=== PATIENT | male | born 1945 | race African-American/Black ===

== ENCOUNTER → 2016-10-06 | Outpatient (REF) | payer MEDICARE, BC, OTHER ==
[~2016-10-06] MED LIST: 3 BP MEDS; ALDA25TA2 PO; ALEV220C2 PO; ALLO100T PO; FLOM5CAP PO; METO50TA2 PO; PERCOCET PO; SENN-22 PO; Thiamine Hcl PO
[2016-10-06 16:34] LABS: ALBUMIN 3.5 GM/DL (3.2-5.2); ALBUMIN/GLOBULIN RATIO 1.06 (1.00-1.93); ALKALINE PHOSPHATASE 71 U/L (45-117); ALT/SGPT 27 U/L (12-78); ANION GAP 6 MEQ/L (8-16); AST/SGOT 16 U/L (15-37); BILIRUBIN,TOTAL 0.4 MG/DL (0.2-1.0); BLOOD UREA NITROGEN 16 MG/DL (7-18); CARBON DIOXIDE LEVEL 29 MEQ/L (21-32); CHLORIDE LEVEL 107 MEQ/L (98-107); CHOLESTEROL LEVEL 157 MG/DL (<200); CREATININE FOR GFR 1.08 MG/DL (0.70-1.30); GLOMERULAR FILTRATION RATE > 60.0 (>42); GLUCOSE, FASTING 91 MG/DL (83-110); POTASSIUM SERUM 4.2 MEQ/L (3.5-5.1); SODIUM LEVEL 142 MEQ/L (136-145); TOTAL PROTEIN 6.8 GM/DL (6.4-8.2); TRIGLYCERIDES LEVEL 103 MG/DL (<150)
== END ==
LOC: M LABDRAW1 15:43
PROVIDERS: ATTEND Family Medicine
DX: E78.5 Hyperlipidemia, unspecified (principal); N42.82 Prostatosis syndrome

== ENCOUNTER → 2016-10-15 | Outpatient (REF) | payer MEDICARE, BC, OTHER | LOC: M SMT 17:10 | PROVIDERS: ATTEND Nurse Practitioner Family | DX: R35.0 Frequency of micturition (principal) | CPT/HCPCS: 51798; 87086; G0463 ==

== ENCOUNTER → 2016-11-17 | Outpatient (CLI) | payer MEDICARE, BC, OTHER ==
[~2016-11-17] MED LIST changes: +ACET1TAB17 PO; +ASPI1TAB PO; +ATOR1TAB19 PO; +BACITAB PO; +BACT800T5 PO; +CIPR500T3 PO; +COLA100C5 PO; +COLC1CAP PO; +DIOV160T6 PO; +DITR1TAB PO; +DRIS50002 PO; +HYDR12CA PO; +METO25TA4 PO; -METO50TA2 PO; +METO50TA7 PO; +OXYC1TAB23 PO; +VIAG100T PO; +VITA100L PO; +XARE20TA PO
--- NOTE | 2016-11-17 10:56 | REP ---
TRANSRECTAL PROSTATE ULTRASOUND WITH ULTRASOUND GUIDANCE FOR PROSTATE BIOPSY: Real-time sonographic evaluation of the prostate performed utilizing transrectal probe. The size of the gland is 6.5 x 5.3 x 5.3 cm for a total volume of 96.3 mL. Echotexture is diffusely heterogeneous with echogenic calcifications noted. Seminal vesicles appear symmetrical. Ultrasound guidance was provided for Dr. Liao who performed ultrasound-guided biopsy of the prostate. Signed by Armen Ghosh MD 11/17/2016 12:54 P
== END | disposition home or self-care (01) ==
LOC: M SMT PRO 08:05
PROVIDERS: ATTEND Urology
DX: C61 Malignant neoplasm of prostate (principal)
CPT/HCPCS: 55700; 76872; 76942; G0416

== ENCOUNTER → 2016-12-16 | Outpatient (REF) | payer MEDICARE, BC | LOC: M SMT 09:00 | PROVIDERS: ATTEND Urology | DX: C61 Malignant neoplasm of prostate (principal) | CPT/HCPCS: 88300; G0463 ==

== ENCOUNTER → 2017-02-03 | Outpatient (CLI) | payer MEDICARE, BC, OTHER ==
--- NOTE | 2017-02-03 15:08 | ECGEPIP ---
Stationary ECG Study [facility] Test Date: 2017-02-03 Pat Name: ILANA HENDRICKS Department: Room: - Gender: M Welcome Wagon Host/Hostess: : 1945 Requested By: FINN Herring Order Number: [id number] Reading MD: Clarisse Londono Measurements Intervals [place] Rate: 70 P: 55 [place]: 167 QRS: -27 QRSD: 89 T: 42 QT: 364 QTc: 393 Interpretive Statements SINUS RHYTHM WITH SINUS ARRHYTHMIA LEFT AXIS DEVIATION RATE SLOWER THAN PREVIOUS 11/28/14 NONSPECIFIC STTW ABN Electronically Signed On 02-03-2017 15:07:57 EDT by Clarisse Londono
[2017-02-03 15:35] LABS: MEAN CORPUSCULAR HEMOGLOBIN 28.5 pg (27.0-33.0); MEAN CORPUSCULAR HGB CONC 32.7 g/dl (32.0-36.5); MEAN CORPUSCULAR VOLUME 87.3 fl (80.0-96.0); RED CELL DISTRIBUTION WIDTH 14.8 % (11.5-14.5); WHITE BLOOD COUNT 6.7 K/mm3 (4.0-10.0)
[2017-02-03 15:42] LABS: INR 1.29
[2017-02-03 15:58] LABS: ALBUMIN 3.9 GM/DL (3.2-5.2); ALBUMIN/GLOBULIN RATIO 1.08 (1.00-1.93); BILIRUBIN,TOTAL 0.5 MG/DL (0.2-1.0); CALCIUM LEVEL 9.3 MG/DL (8.8-10.2); CREATININE FOR GFR 1.5 MG/DL (0.70-1.30); GLOMERULAR FILTRATION RATE 59.7 (>42); POTASSIUM SERUM 4.7 MEQ/L (3.5-5.1); TOTAL PROTEIN 7.5 GM/DL (6.4-8.2)
--- NOTE | 2017-02-03 18:29 | REP ---
Chest x-ray: Two views: History: Encounter for preprocedural exam. Comparison chest x-ray 12/10/2014. Findings: The lungs are well inflated and free of infiltrate. Pleural angles are sharp. Heart size is normal. Pulmonary vasculature is not increased. There is a bone density representing hypertrophy at the site of a healed fracture of the left anterior rib cage. There are degenerative changes in the thoracic spine. Impression: No active disease. Signed by Jay Aranda MD 02/04/2017 08:52 A
== END ==
LOC: M LAB 13:55
PROVIDERS: ATTEND Urology
DX: Z01.818 Encounter for other preprocedural examination (principal); C61 Malignant neoplasm of prostate; N39.0 Urinary tract infection, site not specified; R79.1 Abnormal coagulation profile

== ENCOUNTER 2017-02-24 07:30 | Inpatient (IN) | payer MEDICARE, BC, OTHER ==
[~2017-02-24] VITALS: Ht 182.9 cm; Wt 120.7 kg
[~2017-02-24 07:30] MED LIST changes: -ACET1TAB17 PO; -CIPR500T3 PO; -OXYC1TAB23 PO
[2017-03-09] MEDS ORDERED: LR 1,000 ML IV ONE (07:30)
[2017-03-09] MEDS: HEPARIN SOD (PORCINE) 5000 UNITS/ML VIAL SQ ONE ×2 (07:53→08:53)
[2017-03-09] MEDS: NS 1,000 ML IV SCH ×2 (08:02→16:02)
[2017-03-09] MEDS ORDERED: PROPOFOL 200 MG/20 ML VIAL As Ordered ONE (08:06)
[2017-03-09] MEDS ORDERED: LIDOCAINE 2% INJ 100 MG/5 ML SDV (FOR ANES.) As Ordered ONE (08:06)
[2017-03-09] MEDS ORDERED: ROCURONIUM BROMIDE 50 MG/5 ML VIAL/SYRINGE As Ordered ONE ×2 (08:06→09:27)
[2017-03-09] MEDS ORDERED: MIDAZOLAM INJ 2 MG/2 ML VIAL (J2250) As Ordered ONE (08:07)
[2017-03-09] MEDS ORDERED: fentaNYL 100 MCG/2 ML INJECTION (J3010) As Ordered ONE ×2 (08:07→16:14)
[2017-03-09] MEDS ORDERED: BUPIVACAINE HCL 0.25% 30 ML VIAL As Ordered ONE (08:13)
[2017-03-09] MEDS ORDERED: LIDOCAINE 1% SDV INJ 30 ML VIAL As Ordered ONE (08:13)
[2017-03-09] MEDS ORDERED: METHYLENE BLUE 0.5% (5MG/ML) 10 ML AMP (PROVAYBLUE)(Q9968 PER 1MG) As Ordered ONE (08:13)
[2017-03-09] MEDS ORDERED: MORPHINE 2 MG/ML 1ML SYRINGE IV PRN (08:15)
[2017-03-09] MEDS ORDERED: ACETAMINOPHEN TAB 650MG DOSE (2X325MG) PO PRN (08:15)
[2017-03-09] MEDS ORDERED: ONDANSETRON 4MG/2ML VIAL (J2405) IV PRN ×2 (08:15→17:30)
[2017-03-09] MEDS ORDERED: PERCOCET 5MG/325MG TAB PO PRN ×2 (08:15→17:30)
[2017-03-09] MEDS ORDERED: HEPARIN SOD (PORCINE) 5000 UNITS/ML VIAL As Ordered ONE (08:43)
[2017-03-09] MEDS: VALSARTAN 80 MG TAB (DIOVAN) PO SCH (09:00)
[2017-03-09] MEDS: DOCUSATE SODIUM 100 MG CAP PO SCH ×2 (09:00→20:03)
[2017-03-09] MEDS ORDERED: METOPROLOL 5 MG/5 ML VIAL As Ordered ONE ×2 (09:17→18:13)
[2017-03-09] MEDS ORDERED: HYDROmorphone HCL 2 MG/ML 1ML VIAL (J1170) As Ordered ONE (09:24)
[2017-03-09] MEDS ORDERED: ONDANSETRON 4MG/2ML VIAL (J2405) As Ordered ONE (09:39)
[2017-03-09] MEDS ORDERED: NEOSTIGMINE 1MG/ML 5 ML SYRINGE (J2710) As Ordered ONE (09:39)
[2017-03-09] MEDS ORDERED: GLYCOPYRROLATE INJ 0.2 MG/ML 2 ML VIAL As Ordered ONE (09:39)
[2017-03-09] MEDS ORDERED: VECURONIUM BROMIDE 10 MG VIAL As Ordered ONE (10:47)
[2017-03-09] MEDS: HEPARIN SOD (PORCINE) 5000 UNITS/ML VIAL SC SCH ×2 (14:00→22:01)
--- NOTE | 2017-03-09 16:53 | ROOPDOC ---
[facility] Report Of Operation Report of Operation DATE OF PROCEDURE: 03/09/17 PREPROCEDURE DIAGNOSIS: Prostate cancer. POSTPROCEDURE DIAGNOSIS: Prostate cancer. PROCEDURE: Robotic-assisted laparoscopic radical prostatectomy. SURGEON: Finn Diaz MD LOCKER ROOM ATTENDANT: None ANESTHESIA: General. OPERATIVE INDICATIONS: This is a 71-year-old male who was diagnosed with clinical stage T1c [place] 3+3 prostate cancer. After a discussion of the different options for treatment, he elected to undergo the above listed procedure. DESCRIPTION OF PROCEDURE: The patient was brought to the operating room where general anesthesia was induced. Prophylactic antibiotics were infused. He was then placed in the dorsal lithotomy position, and prepped and draped in the usual sterile fashion. Next, a Cutler catheter was inserted into the bladder, and the balloon was filled with 10 mL of sterile water. We then made a midline incision above the umbilicus for a 12 mm port. A Veress needle was utilized to achieve pneumoperitoneum. Next, a 12 mm port was inserted through the incision and subsequently the camera was inserted. There were no injuries from the Veress needle or initial trocar placement. The remaining ports were placed in the usual fashion under direct vision in a W configuration. There were three 8 mm robotic ports, as well as another 12 mm preschool assistant port. Once all the ports were placed, the robot was docked. After the robot was docked, we then proceeded to release any adhesions to the sigmoid colon and the abdominal wall. Once that was done, the bladder was dropped and the fat overlying the prostate was cleared using electrocautery. The superficial dorsal vein was controlled with electrocautery. The endopelvic fascia was opened on both sides and the dorsal venous complex was cleared. Next, a #0 Vicryl [id number] stitch was placed around the dorsal venous complex. Once that was done, the bladder was opened. We then began dissecting the bladder neck away from the prostate. I continued to dissect the bladder away from the prostate and then the prostate was lifted up. Both vasa differentia were identified in the midline. They were both carefully dissected and then ligated with Weck clips and then transected. Both seminal vesicles were then also dissected until the entire seminal vesicle on each side was lifted up. At this point, bilateral prostatic pedicles were carefully ligated using a Harmonic scalpel. Of note, I did not perform a nerve sparing procedure as the patient had poor erectile function prior to this surgery. Bilateral pedicles were carried towards the apex. After taking care of the pedicles and mobilizing the rectum off the prostate below, the prostate was only connected by the urethra. At this point, the dorsal vein was transected with electrocautery. The urethra was then opened and the catheter was withdrawn and the posterior urethra was transected, thus freeing the prostate. At this point , we checked for hemostasis and it did appear very good. Once hemostasis was confirmed, I then moved on to the vesicourethral anastomosis. This was performed with a Quill stitch in a running fashion. Once this was done, the final #20-Israeli Cutler catheter was placed. Once the final Cutler was placed, the balloon was filled with 15 mL of sterile water. Upon completion of the vesicourethral anastomosis, it was tested by filling the bladder with 120 mL of sterile water. There anastomosis appeared to be watertight. At this point, the prostate and seminal vesicles were placed in an Endo Catch bag for future retrieval. The robot was then undocked. A Juliana fascial closure device was utilized to place a #0 Vicryl suture through the fascia of the 12 mm preschool assistant port. At this point, a Slim- Rebolledo (ROBERTA) drain was brought in through the left robotic port skin site and the drain was positioned anterior to the bladder. The drain was secured to the skin with #3-0 Ethilon suture. Next, all the remaining ports were removed and there did not appear to be any bleeding from any of the port sites. The prostate was then extracted from the 12 mm camera port site after the skin and fascia were extended. The fascia in this area was then closed with a running #0 Vicryl stitch. The previously placed #0 Vicryl free tie through the preschool assistant port site was then tied down and all incisions were irrigated. Lastly, all of the incisions were closed with running subcuticular #4-0 Monocryl sutures. Local anesthesia was applied. Dermabond was then applied to the incisions. This marked the conclusion of the procedure. The patient was then taken out of the dorsal lithotomy position, awakened from anesthesia and transported to the recovery room in stable condition. ESTIMATED BLOOD LOSS: 300 mL. COMPLICATIONS: None. SPECIMENS: Prostate. PLAN: The patient will be admitted to the hospital postoperatively, and he will likely be discharged home within the next 1-2 days. His catheter will be kept in place for at least 7 days. FINN DIAZ MD Mar 09, 2017 16:52
[2017-03-09 17:01] LABS: MEAN CORPUSCULAR HEMOGLOBIN 27.3 pg (27.0-33.0); MEAN CORPUSCULAR HGB CONC 31.7 g/dl (32.0-36.5); MEAN CORPUSCULAR VOLUME 86.1 fl (80.0-96.0); RED CELL DISTRIBUTION WIDTH 15.8 % (11.5-14.5); WHITE BLOOD COUNT 12.8 10^3/uL (4.0-10.0)
[2017-03-09] MEDS ORDERED: HYDROmorphone HCL 1 MG/ML SYRINGE (J1170) As Ordered ONE (17:10)
[2017-03-09] MEDS: HYDROmorphone HCL 1 MG/ML SYRINGE (J1170) IV PRN ×5 (17:15→18:02)
[2017-03-09 17:17] LABS: ANION GAP 6 MEQ/L (8-16); BLOOD UREA NITROGEN 13 MG/DL (7-18); CALCIUM LEVEL 8.8 MG/DL (8.8-10.2); CARBON DIOXIDE LEVEL 25 MEQ/L (21-32); CHLORIDE LEVEL 107 MEQ/L (98-107); CREATININE FOR GFR 1.38 MG/DL (0.70-1.30); GLOMERULAR FILTRATION RATE > 60.0 (>42); GLUCOSE, FASTING 133 MG/DL (83-110); SODIUM LEVEL 138 MEQ/L (136-145)
[2017-03-09] MEDS ORDERED: LR 1,000 ML IV SCH (17:30)
[2017-03-09] MEDS ORDERED: fentaNYL 100 MCG/2 ML INJECTION (J3010) IV PRN (17:30)
[2017-03-09] MEDS: METOPROLOL 5 MG/5 ML VIAL IV SCH ×5 (18:15→18:43)
[2017-03-09 19:00] VITALS: BP 163/89
[2017-03-09 19:45] VITALS: BP 147/80
[2017-03-09] MEDS: SPIRONOLACTONE 25 MG TAB PO SCH (20:04)
[2017-03-09] MEDS: ATORVASTATIN 10 MG TAB PO SCH (20:04)
[2017-03-09] MEDS: METOPROLOL TART 25 MG TABLET PO SCH (20:04)
[2017-03-09] MEDS: ceFAZolin SOD 1 GM in D5W MINI-BAG PLUS 50 ML IV SCH (20:19)
[2017-03-09 20:30] VITALS: BP 150/85
[2017-03-09 21:00] VITALS: BP 158/80
[2017-03-09 22:00] VITALS: BP 137/77
[2017-03-10] MEDS: NS 1,000 ML IV SCH (00:02)
[2017-03-10] MEDS: ceFAZolin SOD 1 GM in D5W MINI-BAG PLUS 50 ML IV SCH (01:28)
[2017-03-10 02:00] VITALS: BP 144/82
[2017-03-10] MEDS: HEPARIN SOD (PORCINE) 5000 UNITS/ML VIAL SC SCH ×3 (05:37→22:02)
[2017-03-10] MEDS: PERCOCET 5MG/325MG TAB PO PRN ×3 (05:37→22:05)
[2017-03-10 06:00] VITALS: BP 134/73
[2017-03-10 06:22] LABS: MEAN CORPUSCULAR HEMOGLOBIN 27.6 pg (27.0-33.0); MEAN CORPUSCULAR HGB CONC 32.1 g/dl (32.0-36.5); RED CELL DISTRIBUTION WIDTH 15.8 % (11.5-14.5); WHITE BLOOD COUNT 11.7 10^3/uL (4.0-10.0)
[2017-03-10 06:43] LABS: ANION GAP 4 MEQ/L (8-16); BLOOD UREA NITROGEN 13 MG/DL (7-18); CALCIUM LEVEL 8.3 MG/DL (8.8-10.2); CARBON DIOXIDE LEVEL 31 MEQ/L (21-32); CHLORIDE LEVEL 104 MEQ/L (98-107); CREATININE FOR GFR 1.34 MG/DL (0.70-1.30); GLOMERULAR FILTRATION RATE > 60.0 (>42); GLUCOSE, FASTING 106 MG/DL (83-110); POTASSIUM SERUM 4.4 MEQ/L (3.5-5.1); SODIUM LEVEL 139 MEQ/L (136-145)
--- NOTE | 2017-03-10 08:09 | IPNPDOC ---
Assessment/Plan Date Seen The patient was seen on 03/10/17. Patient Summary This is 71 y/o M POD1 s/p RALP. He is doing well this morning. Labs are stable w/i normal limits. UOP has been very good. The ROBERTA drain output has been small. Plan/VTE VTE Prophylaxis Ordered?: Yes VTE Exclusion Mechanical Proph: N/A:VTE Prophy Ordered VTE Exclusion Pharmacological: N/A:VTE Prophy Ordered Plan/Urinary Catheter Urinary Catheter: Other Catheter: (catheter will need to stay in place for 7- 10 days to aid in healing of vesicourethral anastomosis) Plan - d/c IVF - percocet prn pain - ambulate - SCDs/SQH - incentive spirometry - continue home meds - strict I/Os - plan likely discharge home later today w/ catheter in place - will remove the ROBERTA drain prior to discharge Subjective Review oF Systems Chief Complaint The patient is a 71-year-old male admitted with a reason for visit of Prostate Cancer. Events since Last Encounter No acute events o/n. Pain is well-controlled. Denies n/v. Tolerating clear liquid diet. No f/c/ns. Objective Physical Examination General Exam: Alert, Cooperative, No Acute Distress ABDOMEN EXAM: Soft, Tenderness (mild tenderness), Other (incisions clean/dry/ intact; ROBERTA w/ serosanguinous output) Skin Exam: Nl turgor and temperature Psych Exam: Mental status NL, Mood NL Other physical findings catheter draining clear urine Vital Signs/I&O Vital Signs Date Time Temp Pulse Resp B/P (MAP) Pulse Ox O2 Delivery O2 Flow Rate FiO2 03/10/17 06:07 16 03/10/17 06:00 98.7 67 134/73 (93) 97 Room Air 03/10/17 02:00 3.0 I&O- Last 24 Hours up to 6 AM 03/11/17 06:00 Output Total 480 ml Balance -480 ml Laboratory Data Labs 24H Laboratory Tests 2 03/09/17 16:48: Anion Gap 6L, Glomerular Filtration Rate > 60.0, Blood Urea Nitrogen 13, Creatinine 1.38H, Sodium Level 138, Potassium Level 5.0, Chloride Level 107, Carbon Dioxide Level 25, Calcium Level 8.8 03/10/17 06:13: Anion Gap 4L, Glomerular Filtration Rate > 60.0, Blood Urea Nitrogen 13, Creatinine 1.34H, Sodium Level 139, Potassium Level 4.4, Chloride Level 104, Carbon Dioxide Level 31, Calcium Level 8.3L CBC/BMP Laboratory Tests 03/09/17 16:48 Red Blood Count 5.17, Mean Corpuscular Volume 86.1, Mean Corpuscular Hemoglobin 27.3, Mean Corpuscular Hemoglobin Concent 31.7 L, Red Cell Distribution Width 15.8 H, Calcium Level 8.8 03/10/17 06:13 Red Blood Count 4.49, Mean Corpuscular Volume 86.0, Mean Corpuscular Hemoglobin 27.6, Mean Corpuscular Hemoglobin Concent 32.1, Red Cell Distribution Width 15.8 H, Calcium Level 8.3 L FINN DIAZ MD Mar 10, 2017 08:09
[2017-03-10] MEDS: DOCUSATE SODIUM 100 MG CAP PO SCH ×2 (08:54→22:01)
[2017-03-10] MEDS: hydroCHLOROthiazide 12.5 MG CAPSULE PO SCH (08:54)
[2017-03-10] MEDS: VALSARTAN 80 MG TAB (DIOVAN) PO SCH (08:55)
[2017-03-10] MEDS: SPIRONOLACTONE 25 MG TAB PO SCH ×2 (08:55→17:53)
[2017-03-10] MEDS: ASPIRIN 81 MG ENTERIC TAB PO SCH (08:55)
[2017-03-10] MEDS: METOPROLOL TART 25 MG TABLET PO SCH ×2 (08:55→22:14)
[2017-03-10] MEDS: oxyBUTYnin *DITROPAN XL* 5 MG TABCR PO SCH (09:10)
[2017-03-10 10:00] VITALS: BP 97/54
[2017-03-10] MEDS ORDERED: OXYC1TAB23 PO (13:33)
[2017-03-10] MEDS ORDERED: ACET1TAB17 PO (13:33)
[2017-03-10] MEDS ORDERED: CIPR500T3 PO (13:33)
[2017-03-10 14:00] VITALS: BP 117/65
[2017-03-10 18:00] VITALS: BP 120/66
[2017-03-10 20:00] VITALS: BP 117/58
[2017-03-10] MEDS: ATORVASTATIN 10 MG TAB PO SCH (22:02)
[2017-03-11 02:00] VITALS: BP 125/62
[2017-03-11] MEDS: HEPARIN SOD (PORCINE) 5000 UNITS/ML VIAL SC SCH (05:34)
[2017-03-11 06:00] VITALS: BP 113/61
[2017-03-11] MEDS ORDERED: CIPROFLOXACIN 500 MG TAB PO SCH (06:00)
[2017-03-11 07:51] LABS: MEAN CORPUSCULAR HEMOGLOBIN 27.5 pg (27.0-33.0); MEAN CORPUSCULAR HGB CONC 31.9 g/dl (32.0-36.5); MEAN CORPUSCULAR VOLUME 86.1 fl (80.0-96.0); RED CELL DISTRIBUTION WIDTH 15.8 % (11.5-14.5); WHITE BLOOD COUNT 9.2 10^3/uL (4.0-10.0)
[2017-03-11 08:21] LABS: ANION GAP 5 MEQ/L (8-16); BLOOD UREA NITROGEN 21 MG/DL (7-18); CALCIUM LEVEL 8.5 MG/DL (8.8-10.2); CARBON DIOXIDE LEVEL 28 MEQ/L (21-32); CHLORIDE LEVEL 104 MEQ/L (98-107); CREATININE FOR GFR 1.45 MG/DL (0.70-1.30); GLOMERULAR FILTRATION RATE > 60.0 (>42); GLUCOSE, FASTING 89 MG/DL (83-110); POTASSIUM SERUM 4.6 MEQ/L (3.5-5.1); SODIUM LEVEL 137 MEQ/L (136-145)
--- NOTE | 2017-03-11 08:32 | IPNPDOC ---
Assessment/Plan Date Seen The patient was seen on 03/11/17. Patient Summary This is 71 y/o M POD2 s/p RALP. He is doing well this morning. Labs are stable. UOP has been very good. ROBERTA drain removed yesterday. Plan/VTE VTE Prophylaxis Ordered?: Yes VTE Exclusion Mechanical Proph: N/A:VTE Prophy Ordered VTE Exclusion Pharmacological: N/A:VTE Prophy Ordered Plan/Urinary Catheter Urinary Catheter: Other Catheter: (catheter will need to stay in place for 7- 10 days to aid in healing of vesicourethral anastomosis) Plan - percocet prn pain - continue home meds except xarelto - ambulate - SCDs, SQH - incentive spirometry - regular diet - discharge home w/ catheter in place Subjective Review oF Systems Chief Complaint The patient is a 71-year-old male admitted with a reason for visit of Prostate Cancer. Events since Last Encounter No acute events o/n. Good pain control w/ percocet. Tolerating diet. No n/v. Catheter stopped draining for a while yesterday evening and was flushed his nurse. It has been draining well since then. No f/c/ns. Objective Physical Examination General Exam: Alert, Cooperative, No Acute Distress ABDOMEN EXAM: Soft, Tenderness (mild tenderness), Other (incisions clean/dry/ intact) Skin Exam: Nl turgor and temperature Neuro Exam: Normal Speech Psych Exam: Mental status NL, Mood NL Vital Signs/I&O Vital Signs Date Time Temp Pulse Resp B/P (MAP) Pulse Ox O2 Delivery O2 Flow Rate FiO2 03/11/17 06:00 98.1 91 18 113/61 (78) 90 Nasal Cannula 2.0 Laboratory Data Labs 24H Laboratory Tests 2 03/11/17 07:09: Anion Gap 5L, Glomerular Filtration Rate > 60.0, Blood Urea Nitrogen 21#H, Creatinine 1.45H, Sodium Level 137, Potassium Level 4.6, Chloride Level 104, Carbon Dioxide Level 28, Calcium Level 8.5L CBC/BMP Laboratory Tests 03/11/17 07:08 Red Blood Count 4.04 L, Mean Corpuscular Volume 86.1, Mean Corpuscular Hemoglobin 27.5, Mean Corpuscular Hemoglobin Concent 31.9 L, Red Cell Distribution Width 15.8 H 03/11/17 07:09 Calcium Level 8.5 L FINN DIAZ MD Mar 11, 2017 08:32
[2017-03-11] MEDS: oxyBUTYnin *DITROPAN XL* 5 MG TABCR PO SCH (09:01)
[2017-03-11] MEDS: DOCUSATE SODIUM 100 MG CAP PO SCH (09:01)
[2017-03-11 09:02] VITALS: BP 113/61
[2017-03-11] MEDS: SPIRONOLACTONE 25 MG TAB PO SCH (09:02)
[2017-03-11] MEDS: hydroCHLOROthiazide 12.5 MG CAPSULE PO SCH (09:02)
[2017-03-11] MEDS: METOPROLOL TART 25 MG TABLET PO SCH (09:02)
[2017-03-11] MEDS: VALSARTAN 80 MG TAB (DIOVAN) PO SCH (09:02)
[2017-03-11] MEDS: ASPIRIN 81 MG ENTERIC TAB PO SCH (09:02)
[2017-03-11 10:00] VITALS: BP 109/56
--- NOTE | 2017-03-11 14:43 | DSES ---
DATE OF ADMISSION: 03/09/2017 DATE OF DISCHARGE: 03/11/2017 ADMISSION DIAGNOSIS: Prostate cancer. DISCHARGE DIAGNOSIS: Prostate cancer. ADMITTING PHYSICIAN: Derrick Liao MD DISCHARGING PHYSICIAN: Derrick Liao MD PROCEDURE PERFORMED: Robotic assisted laparoscopic radical prostatectomy. HISTORY OF PRESENT ILLNESS: This is a 71-year-old male who was diagnosed with prostate cancer and underwent the above listed procedure for treatment. He was admitted to the hospital postoperatively. HOSPITALIZATION COURSE: The patient's hospital course was uncomplicated. His blood work throughout the stay was within normal limits. He did have mild issues with pain and getting in and out of bed on postoperative day #1. By postoperative day #2 this is improved and his pain was controlled with oral pain medications. His catheter was draining well. His Slim-Rebolledo drain had been removed. He was tolerating a regular diet. He was therefore deemed ready for discharge. On postoperative day #2, he was discharged home with the catheter in place with the plan for him to followup in the clinic the following week for catheter removal.
== END 2017-03-11 10:45 | disposition home health service (06) | DRG 708 ==
LOC: M OR 03-09 07:21 → M MSPAV 03-09 18:55
PROVIDERS: ADMIT Urology; ATTEND Urology
PROC: 8E0W4CZ Robotic Assisted Procedure of Trunk Region, Percutaneous Endoscopic Approach (ICD-10-PCS; 2017-03-09)
PROC: 0VT04ZZ Resection of Prostate, Percutaneous Endoscopic Approach (ICD-10-PCS; principal; 2017-03-09 08:30)
DX: C61 Malignant neoplasm of prostate (principal)

== ENCOUNTER → 2017-03-05 | Outpatient (REF) | payer MEDICARE, BC, OTHER ==
[~2017-03-05] MED LIST changes: +ACET1TAB17 PO; +CIPR500T3 PO; +OXYC1TAB23 PO
== END ==
LOC: M SMT 13:20
PROVIDERS: ATTEND Urology
DX: N39.0 Urinary tract infection, site not specified (principal)

== ENCOUNTER → 2017-08-11 | Outpatient (CLI) | payer MEDICARE, BC, OTHER ==
[2017-08-11 16:41] LABS: PROSTATIC SPECIFIC AG MONITOR < 0.01 NG/ML (< 4.0)
== END ==
LOC: M LAB 15:38
DX: C61 Malignant neoplasm of prostate (principal)
CPT/HCPCS: 84153

== ENCOUNTER 2018-09-13 13:06 | Inpatient (IN) | payer OTHER, MEDICARE ==
[~2018-09-13] VITALS: Ht 180.3 cm; Wt 120.7 kg
[~2018-09-13 13:06] MED LIST changes: -ACET1TAB17 PO; +ACET1TAB55 PO; -ASPI1TAB PO; +ASPI81TA26 PO; -DRIS50002 PO; +DRIS50003 PO; +FLOM0.4C39 PO; -FLOM5CAP PO
[2018-09-13] MEDS ORDERED: SENN-3 PO (14:01)
[2018-09-13] MEDS ORDERED: VITA500045 PO (14:01)
[2018-09-13] MEDS ORDERED: SENN8.6T98 PO (14:01)
--- NOTE | 2018-09-13 14:19 | REP ---
Clinical: Trauma. Comparison: 11/22/2014 . Findings: Age-related atrophy with periventricular leukomalacia and microvascular ischemic changes are appreciated. Left basal ganglia lacunar infarct again noted. The ventricles and sulci are symmetric. Ghosh-white differentiation is maintained. There is no evidence for acute intracranial hemorrhage, mass/mass effect, pathology or infarction. No extra-axial fluid collection. Calvarium is intact. Mild mucosal thickening of the paranasal sinuses with small fluid in the left maxillary sinus nonspecific. Mastoid air cells are clear. Impression: Age related atrophy and microvascular ischemic changes. No acute intracranial hemorrhage, infarction, or mass/mass effect. Electronically Signed by Valentin Hdz MD 09/13/2018 02:10 P
--- NOTE | 2018-09-13 14:22 | REP ---
CT cervical spine without contrast HISTORY: Trauma COMPARISON: None There is no acute fracture or subluxation. A disc bulge is present at the C2-3 level. Disc bulges with associated osteophyte formation are present at the C3-4 through C6-7 levels. There is minimal narrowing of the spinal canal. Uncinate process and/or facet hypertrophy are present at the C2-3 through C7-T1 levels. These findings produce minimal to moderate narrowing of the neural foramina. The C3-4 through C7-T1 intervertebral discs are decreased in height consistent with disc degeneration. Bridging anterior osteophytes are present from C3-T1. IMPRESSION: 1. There is no acute fracture or subluxation. There to there is cervical spondylosis at the C2-3 through C7-T1 levels. Electronically Signed by Rush Smith MD 09/13/2018 02:13 P
--- NOTE | 2018-09-13 14:43 | REP ---
Clinical: Trauma. Technique: Internal rotation, external rotation, and Y view of the left shoulder. Findings: Age-related osteopenia and mild osteoarthritic degenerative changes include cortical irregularity at the acromioclavicular joint as well as subtle blunting to the ossified glenoid rim. No acute fracture or dislocation. Subacromial space is within normal limits. No periarticular calcifications or loose bodies are identified. Surrounding soft tissues are unremarkable. Impression: Essentially age-related changes. No acute fracture or dislocation. Electronically Signed by Valentin Hdz MD 09/13/2018 02:34 P
--- NOTE | 2018-09-13 14:46 | REP ---
Chest x-ray: Two views. History: Shortness of breath. Findings: The lungs are symmetrically aerated and clear. Pleural angles are sharp. Heart size is normal. There is calcification in the thoracic aorta. Degenerative changes are noted in the thoracic spine. Findings are essentially unchanged from February 03, 2017. Impression: No active disease. Electronically Signed by Jay Aranda MD 09/13/2018 03:11 P
[2018-09-13 14:49] LABS: BASO % 0.4 % (0.0-1.0); EOS % 0.1 % (0.0-3.0); HEMATOCRIT 45.1 % (42.0-52.0); HEMOGLOBIN 14.5 g/dl (13.5-17.5); LYMPH # 1.7 10^3/uL (1.5-4.5); LYMPH % 22.8 % (24.0-44.0); MEAN CORPUSCULAR HEMOGLOBIN 27.4 pg (27.0-33.0); MEAN CORPUSCULAR HGB CONC 32.2 g/dl (32.0-36.5); MEAN CORPUSCULAR VOLUME 85.1 fl (80.0-96.0); MONO # 0.6 10^3/uL (0.0-0.8); NEUTROPHILS # 5.1 10^3/uL (1.8-7.7); NEUTROPHILS % 68.3 % (36.0-66.0); PLATELET COUNT, AUTOMATED 172 10^3/uL (150-450); WHITE BLOOD COUNT 7.4 10^3/uL (4.0-10.0)
[2018-09-13 15:01] LABS: INR 0.92; PROTHROMBIN TIME 12.5 SECONDS (12.1-14.4)
[2018-09-13 15:27] LABS: ALBUMIN 3.5 GM/DL (3.2-5.2); ALT/SGPT 37 U/L (12-78); BILIRUBIN,TOTAL 0.4 MG/DL (0.2-1.0); BLOOD UREA NITROGEN 31 MG/DL (7-18); CALCIUM LEVEL 9.5 MG/DL (8.8-10.2); CARBON DIOXIDE LEVEL 27 MEQ/L (21-32); CHLORIDE LEVEL 107 MEQ/L (98-107); CPK CREATINE PHOSPHOKINASE 6468 U/L (39-308); CREATININE FOR GFR 1.54 MG/DL (0.70-1.30); GLOMERULAR FILTRATION RATE 57.6 (>42); GLUCOSE, FASTING 96 MG/DL (70-100); MB/CK RELATIVE INDEX 0.08 (< OR =4); POTASSIUM SERUM 4.6 MEQ/L (3.5-5.1); SODIUM LEVEL 140 MEQ/L (136-145); TOTAL PROTEIN 7.7 GM/DL (6.4-8.2); TROPONIN I < 0.02 NG/ML (< 0.10)
[2018-09-13] MEDS ORDERED: NS 1,000 ML IV SCH (15:45)
[2018-09-13 15:50] LABS: MYOGLOBIN 503 NG/ML (16-116)
[2018-09-13] MEDS ORDERED: ACETAMINOPHEN TAB 650MG DOSE (2X325MG) PO PRN (16:15)
[2018-09-13] MEDS ORDERED: COLC1TAB13 PO (16:30)
[2018-09-13] MEDS ORDERED: ATOR1TAB21 PO (16:30)
[2018-09-13] MEDS ORDERED: SPIR-10 PO (16:30)
[2018-09-13] MEDS ORDERED: DRIS50003 PO (16:30)
[2018-09-13] MEDS ORDERED: ZYLO300T6 PO (16:30)
[2018-09-13] MEDS ORDERED: SENN1TAB40 PO (16:33)
[2018-09-13] MEDS ORDERED: EUCECRE3 TOP (16:34)
[2018-09-13] MEDS ORDERED: SENN-85 PO (16:34)
[2018-09-13] MEDS: NS 1,000 ML IV SCH (16:49)
--- NOTE | 2018-09-13 18:47 | HPEPDOC ---
General Date of Admission Sep 13, 2018 at 17:54 Other Providers PCP: [facility] Attending Physician: ZACK EPPS MD Chief Complaint The patient is a 73-year-old male admitted with a reason for visit of Rhabdomyolysis. 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 He is a poor historian, but a history of a stoke. He comes in today dye to increasing weakness on the left side as well as frequent falls over the past week. He states he fell this past Wednesday while trying to get out of bed. Due to weakness on left side, he fell and laid on the floor for about 4 hours until he was able to reach his life-alert button and EMT helped him back up in his house. He fell again Wednesday while trying to get out of a chair when he again felt off balance and weak on the left side, this time on the floor for 30 minutes until EMT again came to hep him in his house. Today, he woke up with increasing weakness on the left side, to the point where he is unable to walk even 2-3 steps and his crab meat processor had to help him move around with a wheelchair, whereas normally he ambulates with a walker. In the ER, he continued to complain of left-sided weakness, found to have rhabdo with CPK above 6000. He'll be admitted for concern of stroke. Home Medications Scheduled (Senna Plus 8.6-50 mg) 1 Tab Tab, 2 TAB PO QHS, (Reported) Allopurinol (Zyloprim) 300 Mg Tab, 300 MG PO DAILY, (Reported) Aspirin (Aspirin 81) 81 Mg Tab, 81 MG PO DAILY, (Reported) Atorvastatin Calcium (Atorvastatin Calcium) 20 Mg Tab, 10 MG PO QHS, (Reported) Colchicine (Colchicine) 0.6 Mg Tab, 0.6 MG PO DAILY, (Reported) Eucerin (Eucerin) 1 Cre Cre, 1 APLCT TOP DAILY, (Reported) APPLY TO FEET Metoprolol Tartrate (Metoprolol Tartrate) 25 Mg Tab, 25 MG PO BID, (Reported) Spironolactone (Spironolactone) 25 Mg Tab, 25 MG PO BID, (Reported) Valsartan (Diovan) 160 Mg Tab, 160 MG PO DAILY, (Reported) Vitamin D (Drisdol) 50,000 Unit Cap, 50,000 UNIT PO 1XWK, (Reported) WEDNESDAY Scheduled PRN Acetaminophen (Acetaminophen) 325 Mg Tab, 650 MG PO Q4H PRN for MILD PAIN OR FEVER, (Reported) Senna (Cvs Senna) 8.6 Mg Tab, 8.6 MG PO BID PRN for CONSTIPATION, (Reported) Allergies Coded Allergies: shellfish derived (Verified Allergy, Severe, HIVES, DIFFICULTY BREATHING, 09/13/18) iodine (Verified Allergy, Unknown, 09/13/18) Past Medical History Medical History History of a stroke 03/2014 CKD stage II Gout Hyperlipidemia Prediabetes Arthritis Hypertension History of syncope History of prostate cancer S/P surgery Surgical History Radical prostatectomy 02/2017 Family History Father and mother . Brother passed from AIDS, 20 sister passed from uterine/colon cancer Social History Tobacco: States he quit smoking 35 years ago. 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 Admits to left chest wall pain from fall Cardiac: Denies chest pain, palpitations, orthopnea, PND, edema, lightheadedness GI: Denies nausea, vomiting, abdominal pain, diarrhea, constipation, melena, hematochezia : Denies dysuria, hematuria, retention Endocrine: Denies heat or cold intolerance MSK: Admits left shoulder, left chest wall, and lower neck pain from recent falls. No other aches or pains Neurologic: Denies new paresthesias. Admits to left upper and lower extremity weakness from recent falls. He and his crab meat processor deny any slurred speech, confusion, facial droop Physical Examination Other physical findings General exam: Alert and cooperative, A&O 3, NAD, sitting in wheelchair Eye exam: PERRLA, EOMI ENT: normocephalic, healing scrapes on head from recent falls, mucus membranes moist, tongue midline, no pharyngeal edema Neck: Supple, no JVD, no carotid bruits Cardiac: RRR, normal S1 & S2, no murmurs Respiratory: rhonchi throughout, no wheezing or rales. Speaking in full sentences Abdomen: Obese, normoactive bowel sounds, soft, nontender, nondistended Extremity: 2+ radial pulses, no edema or calf tenderness Skin: warm, dry, no visible rash or lesions Neuro: Strength 3-4/5 on left UE & LE, 4-5/5 on right, normal tone, sensation in tact, normal speech, no tongue deviation. Rapid alternating movements and [id number] intact. 5 out of 5 second hand strength bilaterally Psych: Normal mood and affect. Poor historian Vital Signs Vital Signs Date Time Temp Pulse Resp B/P (MAP) Pulse Ox O2 Delivery O2 Flow Rate FiO2 09/13/18 16:06 83 95 Room Air 09/13/18 16:00 115/69 (84) 09/13/18 13:06 99.2 19 Laboratory Data Labs 24H Laboratory Tests 2 09/13/18 14:38: Immature Granulocyte % (Auto) 0.4, White Blood Count 7.4, Red Blood Count 5.30, Hemoglobin 14.5, Hematocrit 45.1, Mean Corpuscular Volume 85.1, Mean Corpuscular Hemoglobin 27.4, Mean Corpuscular Hemoglobin Concent 32.2, Red Cell Distribution Width 16.2H, Platelet Count 172, Neutrophils (%) (Auto) 68.3H, Lymphocytes (%) (Auto) 22.8L, Monocytes (%) (Auto) 8.0H, Eosinophils (%) (Auto) 0.1, Basophils (%) (Auto) 0.4, Neutrophils # (Auto) 5.1, Lymphocytes # (Auto) 1.7, Monocytes # (Auto) 0.6, Eosinophils # (Auto) 0.0, Basophils # (Auto) 0.0, Nucleated Red Blo od Cells % (auto) 0.0, Prothrombin Time 12.5, Prothromb Time International Ratio 0.92, Anion Gap 6L, Glomerular Filtration Rate 57.6, Blood Urea Nitrogen 31H, Creatinine 1.54H, Sodium Level 140, Potassium Level 4.6, Chloride Level 107, Carbon Dioxide Level 27, Calcium Level 9.5, Aspartate Amino Transf (AST/SGOT) 151H, Alanine Aminotransferase (ALT/SGPT) 37, Total Creatine Kinase 6468H, Alkaline Phosphatase 65, Total Bilirubin 0.4, Total Protein 7.7, Albumin 3.5, Creatine Kinase MB 5.0H, Creatine Kinase MB Relative Index 0.08, Myoglobin 503H, Troponin I < 0.02, Albumin/Globulin Ratio 0.83L 09/13/18 16:53: Urine Color YELLOW, Urine Appearance CLEAR, Urine pH 5.0, Urine Specific [place] 1.018, Urine Protein NEGATIVE, Urine Glucose (UA) NEGATIVE, Urine Ketones NEGATIVE, Urine Blood 1+H, Urine Nitrite NEGATIVE, Urine Bilirubin NEGATIVE, Urine Urobilinogen 2.0H, Urine Leukocyte Esterase NEGATIVE, Urine WBC (Auto) 1, Urine RBC (Auto) 2, Urine Hyaline Casts (Auto) 0, Urine Bacteria (Auto) NEGATIVE, Urine Squamous Epithelial Cells 0, Urine Sperm (Auto) , Urine Myoglobin NEGATIVE CBC/BMP Laboratory Tests 09/13/18 14:38 Red Blood Count 5.30, Mean Corpuscular Volume 85.1, Mean Corpuscular Hemoglobin 27.4, Mean Corpuscular Hemoglobin Concent 32.2, Red Cell Distribution Width 16.2 H, Neutrophils (%) (Auto) 68.3 H, Lymphocytes (%) (Auto) 22.8 L, Monocytes (%) (Auto) 8.0 H, Eosinophils (%) (Auto) 0.1, Basophils (%) (Auto) 0.4, Neutrophils # (Auto) 5.1, Lymphocytes # (Auto) 1.7, Monocytes # (Auto) 0.6, Eosinophils # (Auto) 0.0, Basophils # (Auto) 0.0, Calcium Level 9.5, Aspartate Amino Transf (AST/SGOT) 151 H, Alanine Aminotransferase (ALT/SGPT) 37, Total Creatine Kinase 6468 H, Alkaline Phosphatase 65, Total Bilirubin 0.4, Total Protein 7.7, Albumin 3.5 Assessment/Plan Left-sided weakness * Possible deconditioning versus myelopathy versus CVA * 3-4/5 strength on left side, increasing falls in past 4 days * Imaging thus far negative. Awaiting MRI of head and C-spine. If imaging is positive for stroke, will consult neuro and proceed with stroke workup * Per previous records, he does have a documented history of CVA in 2013. Will continue his aspirin and statin as we await imaging * [facility] * Placed on fall precautions, neuro checks, PT/OT Rhabdomyolysis * CPK 6000+, myoglobin 500+ * Likely 2/2 multiple hours he spent on the floor from recent falls * IV fluid hydration. Will recheck level tomorrow Transaminitis * AST at 151, ALT normal at 37 * Possibly 2/2 recent fall and rhabdo * Will obtain previous records and recheck levels in the a.m. We'll work this up further if this is a new abnormality for him\ Hypertension * Continue metoprolol. Valsartan and spironolactone on hold to allow permissive hypertension in case this is a stroke * BP WNL currently History of prostate cancer * S/P radical prostatectomy * Follows with Dr. Liao. CKD II-III Currently at baseline with CR 1.54. [facility] History of gout Stable. Continue allopurinol and colchicine DVT ppx: heparin sc DISPO: Will admit to hospital service and continue workup. Plan / VTE VTE Prophylaxis Ordered?: Yes MOJGAN OLSEN DO Sep 13, 2018 18:46
--- NOTE | 2018-09-13 20:28 | REPVR ---
EXAM: MR Cervical Spine Without Contrast EXAM DATE/TIME: 09/13/2018 7:22 PM CLINICAL HISTORY: 73 years old, male; Signs and symptoms; Weakness; Patient HX: Weakness >1week; Additional info: Weakness left ext TECHNIQUE: Imaging protocol: Multiplanar magnetic resonance images of the cervical spine without contrast. COMPARISON: MRI-C SPINE W/O FOLL BY WITH 11/30/2014 1:27 PM FINDINGS: Vertebrae: Degenerative spondylosis at the atlantoaxial joint. C2-C3: Bulging annulus at C2-3 small central protrusion effaces ventral subarachnoid space without cord impingement. Bilateral moderate foraminal stenosis. C3-C4: Posterior disc protrusion at C3-4 effaces the ventral subarachnoid space with mild cord. Bilateral severe foraminal stenosis. C4-C5: Diffusely bulging annulus at C4-5 without cord impingement. Bilateral severe foraminal stenosis. C5-C6: Disc osteophyte complex at C5-6 effaces the ventral subarachnoid space without cord impingement. Bilateral severe foraminal stenosis. C6-C7: Bilateral moderate severe foraminal stenosis at C6-7. C7-T1: No significant disc disease. No stenosis. Spinal cord: Normal signal. No cord compression. Vasculature: Expected flow voids in the vertebral arteries. Soft tissues: Unremarkable IMPRESSION: Degenerative spondylosis with multilevel disc protrusions and foraminal stenoses as described above. Electronically signed by: Andreas Villatoro On 09/13/2018 20:27:44 PM
--- NOTE | 2018-09-13 20:30 | REPVR ---
EXAM: MR Head Without Contrast EXAM DATE/TIME: 09/13/2018 7:22 PM CLINICAL HISTORY: 73 years old, male; Signs and symptoms; Weakness, extremity; Bilateral; Additional info: Eval for CVA TECHNIQUE: Imaging protocol: MR of the head without contrast. COMPARISON: CT Head without contrast 09/13/2018 1:48 PM FINDINGS: Brain: Multiple foci of T2 lengthening are demonstrated in the subcortical, periventricular, centrum semiovale and central pontine white matter consistent with age-related small vessel gliosis. Age-related moderate parenchymal volume loss. Ventricles: Normal for age. No pathologic ventriculomegaly. Bones/joints: Unremarkable. Soft tissues: Normal. Sinuses: Inflammatory changes right sphenoid sinus. Bilateral ethmoid sinusitis. Left frontal sinusitis. Mastoid air cells: Normal as visualized. No mastoid effusion. Orbits: Unremarkable. IMPRESSION: Multiple foci of T2 lengthening are demonstrated in the subcortical, periventricular, centrum semiovale and central pontine white matter consistent with age-related small vessel gliosis. Electronically signed by: Andreas Villatoro On 09/13/2018 20:30:06 PM
[2018-09-13 22:11] VITALS: BP 130/82
--- NOTE | 2018-09-13 22:12 | ECGEPIP ---
Stationary ECG Study [facility] - ED Test Date: 2018-09-13 Pat Name: ILANA HENDRICKS Department: Room: - Gender: M Record Keeper: FAY : 1945 Requested By: Aleisha Lee Order Number: [id number] Reading MD: Suresh Rodrigues Measurements Intervals [place] Rate: 80 P: 52 MA: 159 QRS: -30 QRSD: 86 T: 36 QT: 349 QTc: 403 Interpretive Statements SINUS RHYTHM BORDERLINE LEFT AXIS DEVIATION LOW QRS VOLTAGE IN PRECORDIAL LEADS SIMILAR TO 02/03/17 Electronically Signed On 09-13-2018 22:11:56 EDT by Suresh Rodriuges
[2018-09-13] MEDS: ATORVASTATIN 20 MG TAB PO SCH (22:55)
[2018-09-13] MEDS: HEPARIN SOD (PORCINE) 5000 UNITS/ML VIAL SC SCH (22:55)
[2018-09-13] MEDS: METOPROLOL TART 25 MG TABLET PO SCH (22:56)
[2018-09-14] VITALS: BP_SYST 131; BP_SYST 137; BP_SYST 145; BP_DIAS 77; BP_DIAS 80; BP_DIAS 81
[2018-09-14] MEDS: NS 1,000 ML IV SCH ×2 (02:18→13:47)
[2018-09-14 04:00] VITALS: BP 149/78
[2018-09-14] MEDS: HEPARIN SOD (PORCINE) 5000 UNITS/ML VIAL SC SCH ×3 (06:03→21:56)
[2018-09-14 08:00] VITALS: BP_SYST 140; BP_SYST 141; BP_SYST 150; BP_DIAS 77; BP_DIAS 84; BP_DIAS 87
[2018-09-14 09:06] LABS: HEMATOCRIT 46.7 % (42.0-52.0); HEMOGLOBIN 14.7 g/dl (13.5-17.5); MEAN CORPUSCULAR HEMOGLOBIN 26.9 pg (27.0-33.0); MEAN CORPUSCULAR HGB CONC 31.5 g/dl (32.0-36.5); MEAN CORPUSCULAR VOLUME 85.5 fl (80.0-96.0); PLATELET COUNT, AUTOMATED 157 10^3/uL (150-450); RED BLOOD COUNT 5.46 10^6/uL (4.30-6.10); WHITE BLOOD COUNT 5.4 10^3/uL (4.0-10.0)
[2018-09-14] MEDS: COLCHICINE 0.6 MG TAB PO SCH (09:29)
[2018-09-14] MEDS: EUCERIN 120GM CREAM TOP SCH (09:29)
[2018-09-14] MEDS: ALLOPURINOL 300 MG TAB PO SCH (09:29)
[2018-09-14] MEDS: ASPIRIN 81 MG ENTERIC TAB PO SCH (09:29)
[2018-09-14] MEDS: METOPROLOL TART 25 MG TABLET PO SCH ×2 (09:30→21:57)
[2018-09-14 10:32] LABS: ALBUMIN 3.2 GM/DL (3.2-5.2); ALT/SGPT 34 U/L (12-78); BILIRUBIN,DIRECT < 0.1 MG/DL (0.0-0.2); BILIRUBIN,TOTAL 0.5 MG/DL (0.2-1.0); BLOOD UREA NITROGEN 23 MG/DL (7-18); CALCIUM LEVEL 8.9 MG/DL (8.8-10.2); CARBON DIOXIDE LEVEL 21 MEQ/L (21-32); CHLORIDE LEVEL 112 MEQ/L (98-107); CPK CREATINE PHOSPHOKINASE 3888 U/L (39-308); CREATININE FOR GFR 1.17 MG/DL (0.70-1.30); GLOMERULAR FILTRATION RATE > 60.0 (>42); GLUCOSE, FASTING 90 MG/DL (70-100); POTASSIUM SERUM 4.8 MEQ/L (3.5-5.1); SODIUM LEVEL 137 MEQ/L (136-145); TOTAL PROTEIN 7.2 GM/DL (6.4-8.2)
[2018-09-14] MEDS: SPIRONOLACTONE 25 MG TAB PO SCH ×2 (10:42→17:27)
[2018-09-14] MEDS: VALSARTAN 80 MG TAB (DIOVAN) PO SCH (10:42)
[2018-09-14 12:00] VITALS: BP 129/77
--- NOTE | 2018-09-14 12:08 | IPN ---
DATE: 09/14/2018 SUBJECTIVE: The patient examined sitting up in chair. Denies any issues overnight. No reported events per nursing staff. The patient states that he feels mildly better today. However, he is unsure if he feels back to his normal baseline. He is overall a poor historian. He denies any falls since hospitalization and he states his left-sided weakness is slightly better. He has been updated regarding the results of imaging which were negative for a stroke. Otherwise, he is doing well. PHYSICAL EXAMINATION: VITAL SIGNS: Temperature 97.1, pulse 70, respirations 22, blood pressure 149/78 with a mean arterial pressure (MAP) of 101, pulse oximetry 96% on room air. GENERAL: Resting comfortably in his chair, alert and oriented times three, in no acute distress, fully conversant. HEENT: Normocephalic. Pupils are equal, round, and reactive to light. Extraocular muscles intact. Moist mucous membranes. Tongue midline. NECK: Supple without jugular venous distention (JVD). CARDIAC: Regular rate and rhythm with normal S1, S2. Distant heart sounds. LUNGS: Rhonchorous throughout in posterior quintanilla. Clear bilaterally in anterior quintanilla. No appreciable wheezing or rales. No respiratory distress. He is able to speak in full sentences. ABDOMEN: Obese, normoactive bowel sounds, soft, nontender, nondistended. EXTREMITIES: 2+ radial pulses bilaterally. No peripheral edema or calf tenderness. SKIN: No visible lesions. NEUROLOGIC: Strength 5/5 bilateral upper extremities, 3-4 out of 5 in the left lower extremity and 5/5 on the right upper and lower extremities. Normal tone, 5/5 rectifying operator strength bilaterally. Sensation intact. No slurred speech or tongue deviation. MUSCULOSKELETAL: No longer tender on the left shoulder where he recently fell. PSYCHIATRIC: Normal mood and affect, overall is a poor historian. LABORATORY DATA: WBC 5.4, hemoglobin and hematocrit 14.7 and 46.7, platelets 157. CMP and CPK are currently pending. IMAGING: Since admission, C-spine MRI and brain MRI have resulted revealing degenerative spondylosis with multilevel disc protrusions and foraminal stenosis and age-related small vessel gliosis, otherwise negative. IMPRESSION AND PLAN: 1. Left-sided weakness. Imaging is negative for a stroke and his 3-4 out of 5 strength on the left side is mildly improved today and he feels subjectively better as well. This is likely from deconditioning versus myelopathy from recent falls. [facility] awaiting [facility] He is placed on fall precautions with neurologic checks that have been negative thus far. Continue with physical therapy (PT) and occupational therapy (OT). Possibly will require rehabilitation or placement. 2. Rhabdomyolysis. He continues on IV fluids. Currently, recheck of creatine phosphokinase (CPK) is pending. This is secondary to his recent falls and multiple hours he spent on the floor. 3. Transaminitis. Aspartate aminotransferase (AST) was 151 on admission. Currently, the recheck is pending. This may have been transient given his recent falls and his rhabdomyolysis. We will also compare his levels to [facility] previous [facility]. 4. Hypertension. Continue home metoprolol and valsartan and spironolactone with hold parameters. 5. History of prostate cancer, status post radical prostatectomy in 2013. He normally follows with Dr. Liao. 6. Chronic kidney disease (CKD), stage II to III. He is currently at his baseline creatinine around 1.5. [facility]. 7. History of gout, stable on allopurinol and colchicine. 8. Deep vein thrombosis (DVT) prophylaxis. Heparin subcutaneously. DISPOSITION: Pending clinical improvement, physical therapy (PT) and occupational therapy (OT) clearance. My faculty preceptor for this patient encounter was physically present during the encounter and was fully available. All aspects of the patient interview, examination, medical decision making process, and medical care plan development were reviewed and approved by the faculty preceptor. The faculty preceptor is aware and concurs with the plan as stated in the body of this note and will attest to such by his/her co-signature.
[2018-09-14 16:00] VITALS: BP 139/84
[2018-09-14] MEDS ORDERED: SLF 3 ML SYR IV PRN (16:15)
[2018-09-14 20:00] VITALS: BP 121/74
[2018-09-14] MEDS: SLF 3 ML SYR IV SCH (21:55)
[2018-09-14] MEDS: ATORVASTATIN 20 MG TAB PO SCH (21:57)
[2018-09-15] VITALS: BP_SYST 135; BP_SYST 157; BP_SYST 163; BP_DIAS 81; BP_DIAS 89; BP_DIAS 99
[2018-09-15 05:42] LABS: HEMATOCRIT 48.3 % (42.0-52.0); HEMOGLOBIN 14.6 g/dl (13.5-17.5); MEAN CORPUSCULAR HEMOGLOBIN 26.7 pg (27.0-33.0); MEAN CORPUSCULAR HGB CONC 30.2 g/dl (32.0-36.5); MEAN CORPUSCULAR VOLUME 88.3 fl (80.0-96.0); PLATELET COUNT, AUTOMATED 152 10^3/uL (150-450); RED BLOOD COUNT 5.47 10^6/uL (4.30-6.10); WHITE BLOOD COUNT 5.1 10^3/uL (4.0-10.0)
[2018-09-15] MEDS: HEPARIN SOD (PORCINE) 5000 UNITS/ML VIAL SC SCH ×3 (05:47→22:40)
[2018-09-15] MEDS: SLF 3 ML SYR IV SCH ×3 (05:48→22:40)
[2018-09-15 07:02] LABS: BLOOD UREA NITROGEN 19 MG/DL (7-18); CALCIUM LEVEL 8.8 MG/DL (8.8-10.2); CARBON DIOXIDE LEVEL 17 MEQ/L (21-32); CHLORIDE LEVEL 114 MEQ/L (98-107); CREATININE FOR GFR 1.06 MG/DL (0.70-1.30); GLOMERULAR FILTRATION RATE > 60.0 (>42); GLUCOSE, FASTING 84 MG/DL (70-100); POTASSIUM SERUM 4.6 MEQ/L (3.5-5.1); SODIUM LEVEL 137 MEQ/L (136-145)
[2018-09-15 07:06] LABS: CPK CREATINE PHOSPHOKINASE 1773 U/L (39-308)
[2018-09-15 08:00] VITALS: BP 127/93
[2018-09-15] MEDS: VALSARTAN 80 MG TAB (DIOVAN) PO SCH (08:58)
[2018-09-15] MEDS: ALLOPURINOL 300 MG TAB PO SCH (08:58)
[2018-09-15] MEDS: COLCHICINE 0.6 MG TAB PO SCH (08:58)
[2018-09-15] MEDS: METOPROLOL TART 25 MG TABLET PO SCH ×2 (08:58→22:39)
[2018-09-15] MEDS: ASPIRIN 81 MG ENTERIC TAB PO SCH (08:59)
[2018-09-15] MEDS: SPIRONOLACTONE 25 MG TAB PO SCH ×2 (08:59→17:34)
[2018-09-15] MEDS: EUCERIN 120GM CREAM TOP SCH (09:06)
--- NOTE | 2018-09-15 11:49 | IPN ---
DATE: 09/15/2018 SUBJECTIVE: Patient is examined sitting up in a chair. No reported events overnight. He continues to improve daily. He states that his weakness is almost fully gone and his left side is now almost as strong as the right. He has no other complaints. No fever, chills, nausea, vomiting, lightheadedness, dizziness, blurred vision, or paresthesias. PHYSICAL EXAMINATION: VITAL SIGNS: Temperature 98.1, pulse 65, respirations 20, blood pressure 127/93, map 104, pulse ox 97% on room air. GENERAL: Resting comfortably in his chair. Alert and oriented times three. Fully conversant. No acute distress. HEENT: Normocephalic, atraumatic. Extraocular muscles intact. Moist mucous membranes. Tongue is midline. NECK: Supple without jugular venous distention (JVD). CARDIAC: Regular rate and rhythm with normal S1 and S2. Distant heart sounds. LUNGS: Essentially clear throughout with mild rhonchi that clear with coughing. No wheezing or rales. Speaking in full sentences. ABDOMEN: Obese, positive bowel sounds, benign. EXTREMITIES: 2+ radial pulses bilaterally. No peripheral edema. SKIN: No visible lesions. NEURO: Strength is 5/5 bilateral upper extremities 4/5 in the left lower extremity. 5/5 in the right lower extremity as well. Normal tone and equal geomatics professor strength bilaterally. Sensation intact. No focal deficits. MUSCULOSKELETAL: Able to move all extremities without any tenderness to palpation on the left shoulder today. PSYCH: Normal mood, affect. Overall is a poor historian but pleasantly conversant. LABS: WBC 5.1, hemoglobin and hematocrit 14, 48, platelets 152. Sodium and potassium 137 and 4.6, BUN and creatinine 19 and 1.06, CPK 1773. IMPRESSION AND PLAN: 1. Left-sided weakness likely due to deconditioning and possible myelopathy from recent falls. Imaging has been negative for cerebrovascular accident (CVA). He continues to improve gradually. Continue physical therapy (PT) and occupational therapy (OT), possible rehabilitation replacement afterwards. 2. Rhabdomyolysis: His CPK levels are trending down from 6000+ on admission to 1700s today. Will discontinue fluids as he is tolerating by mouth intake well. Rhabdomyolysis secondary to be on the floor for hours from his recent falls. 3. Hypertension: Continue home metoprolol, Valsartan and spironolactone. BPWNO. 4. History of prostate cancer status post radical prostatectomy 2013. Follows with Dr. Liao. 5. Chronic kidney disease (CKD) stage II to III: He is currently at his baseline with creatinine better than his normal at 1.06 today. It appears baseline is around 1.5. 6. History of gout: Stable on allopurinol, colchicine. 7. Transaminitis on admission: Now resolved given IV fluids and improvement of rhabdomyolysis. DISPOSITION: Pending clinical improvement, PT, and OT clearance, likely discharged on the next 24 hours. My faculty preceptor for this patient encounter was physically present during the encounter and was fully available. All aspects of the patient interview, examination, medical decision making process, and medical care plan development were reviewed and approved by the faculty preceptor. The faculty preceptor is aware and concurs with the plan as stated in the body of this note and will attest to such by his/her co-signature.
[2018-09-15 12:00] VITALS: BP_SYST 131; BP_SYST 132; BP_SYST 145; BP_DIAS 79; BP_DIAS 82; BP_DIAS 93
[2018-09-15 15:00] VITALS: BP 117/73
[2018-09-15 22:00] VITALS: BP_SYST 130; BP_SYST 134; BP_SYST 138; BP_SYST 140; BP_DIAS 78; BP_DIAS 80; BP_DIAS 85; BP_DIAS 91
[2018-09-15] MEDS: ATORVASTATIN 20 MG TAB PO SCH (22:39)
[2018-09-16 06:00] VITALS: BP_SYST 128; BP_SYST 139; BP_SYST 141; BP_DIAS 81; BP_DIAS 82; BP_DIAS 90
[2018-09-16] MEDS: HEPARIN SOD (PORCINE) 5000 UNITS/ML VIAL SC SCH (06:19)
[2018-09-16] MEDS: SLF 3 ML SYR IV SCH (06:20)
[2018-09-16 06:44] LABS: HEMATOCRIT 48.5 % (42.0-52.0); HEMOGLOBIN 15.2 g/dl (13.5-17.5); MEAN CORPUSCULAR HEMOGLOBIN 26.7 pg (27.0-33.0); MEAN CORPUSCULAR HGB CONC 31.3 g/dl (32.0-36.5); MEAN CORPUSCULAR VOLUME 85.2 fl (80.0-96.0); PLATELET COUNT, AUTOMATED 190 10^3/uL (150-450); RED BLOOD COUNT 5.69 10^6/uL (4.30-6.10); WHITE BLOOD COUNT 5.7 10^3/uL (4.0-10.0)
[2018-09-16 07:14] LABS: BLOOD UREA NITROGEN 16 MG/DL (7-18); CALCIUM LEVEL 9.7 MG/DL (8.8-10.2); CARBON DIOXIDE LEVEL 25 MEQ/L (21-32); CHLORIDE LEVEL 110 MEQ/L (98-107); CREATININE FOR GFR 1.12 MG/DL (0.70-1.30); GLOMERULAR FILTRATION RATE > 60.0 (>42); GLUCOSE, FASTING 93 MG/DL (70-100); SODIUM LEVEL 142 MEQ/L (136-145)
[2018-09-16] MEDS: COLCHICINE 0.6 MG TAB PO SCH (08:15)
[2018-09-16] MEDS: VALSARTAN 80 MG TAB (DIOVAN) PO SCH (08:15)
[2018-09-16] MEDS: ASPIRIN 81 MG ENTERIC TAB PO SCH (08:15)
[2018-09-16] MEDS: ALLOPURINOL 300 MG TAB PO SCH (08:15)
[2018-09-16 08:16] VITALS: BP 119/81
[2018-09-16] MEDS: SPIRONOLACTONE 25 MG TAB PO SCH (08:16)
[2018-09-16] MEDS: METOPROLOL TART 25 MG TABLET PO SCH (08:16)
[2018-09-16] MEDS: EUCERIN 120GM CREAM TOP SCH (08:16)
--- NOTE | 2018-09-16 11:11 | DS.PDOC ---
Discharge Summary General Date of Admission Sep 13, 2018 at 17:54 Date of Discharge 09/16/2018 Attending Physician: ZACK EPPS MD Discharge Summary PROCEDURES PERFORMED DURING STAY: None. ADMITTING DIAGNOSES: 1. Left-sided weakness 2. Multiple falls 2/2 weakness 3. Rhabdomyolysis DISCHARGE DIAGNOSES: 1. Falls at home 2/2 Left-sided weakness 2/2 deconditioning 2. Rhabdomyolysis 3. Transaminitis History of a stroke 03/2014 CKD stage II-III Gout Hyperlipidemia Prediabetes Arthritis Hypertension History of syncope History of prostate cancer S/P surgery COMPLICATIONS/CHIEF COMPLAINT: Rhabdomyolysis. HISTORY OF PRESENT ILLNESS: 73-year-old male presents the ER with his it help desk technician, Ani, at the suggestion of his [place] clinic doctors for concern of a stroke. He is a poor historian, but a history of a stoke. He comes in today dye to increasing weakness on the left side as well as frequent falls over the past week. He states he fell this past Wednesday while trying to get out of bed. Due to weakness on left side, he fell and laid on the floor for about 4 hours until he was able to reach his life-alert button and EMT helped him back up in his house. He fell again Wednesday while trying to get out of a chair when he again felt off balance and weak on the left side, this time on the floor for 30 minutes until EMT again came to hep him in his house. Today, he woke up with increasing weakness on the left side, to the point where he is unable to walk even 2-3 steps and his it help desk technician had to help him move around with a wheelchair, whereas normally he ambulates with a walker. In the ER, he continued to complain of left-sided weakness, found to have rhabdo with CPK above 6000. He'll be admitted for concern of stroke. HOSPITAL COURSE: Patient was admitted on fall precautions, neuro checks, PT OT. Strength noted to be 3-4/5 on left UE & LE, 4-5/5 on right UE & LE on admission. Imaging was negative for stroke. He began to improve each day as he participated in physical therapy, and ultimately was back to his baseline 5/5 strength bilaterally. CPK trended down with IV fluids. He eventually felt back to his baseline and cleared PT & OT, safe for discharge home. Of note, liver enzymes were elevated on admission, however normalized when rechecked days later, suggesting this was likely 2/2 his recent falls and rhabdo. No cough patient's during stay. He was discharged with recommendations to stay hydrated and continue under the care of his it help desk technician Ani, and to return to ER for emergency. DISCHARGE had no MEDICATIONS: Please see below. ALLERGIES: Please see below. PHYSICAL EXAMINATION ON DISCHARGE: VITAL SIGNS: Please see below. GENERAL: Resting comfortably in his chair. Alert and oriented times three. Fully conversant. No acute distress. HEENT: Normocephalic, atraumatic. Extraocular muscles intact. Moist mucous membranes. Tongue is midline. NECK: Supple without jugular venous distention (JVD). CARDIAC: Regular rate and rhythm with normal S1 and S2. Distant heart sounds. LUNGS: CTAB. Speaking in full sentences. ABDOMEN: Obese, positive bowel sounds, benign. EXTREMITIES: 2+ radial pulses bilaterally. No peripheral edema. SKIN: No visible lesions. NEURO: Strength is 5/5 in all limbs. Normal tone and equal sales planning analyst strength bilaterally. Sensation intact. No focal deficits. MUSCULOSKELETAL: Able to move all extremities without any tenderness to palpation on the left shoulder PSYCH: Normal mood, affect. Overall is a poor historian but pleasantly conversant. LABORATORY DATA: Please see below. IMAGING: * 09/13/2018 left shoulder x-ray: Essentially age-related changes. No acute fracture or dislocation. * 09/13/[address]: Age related atrophy and microvascular ischemic changes. No acute intracranial hemorrhage, infarction, or mass/mass effect. * 09/13/2018 CXR: No active disease. * 09/13/[address]: 1. There is no acute fracture or subluxation. There to there is cervical spondylosis at the C2-3 through C7-T1 levels. * 09/13/2018 C-spine MRI: Degenerative spondylosis with multilevel disc protrusions and foraminal stenoses as described above. * 09/13/2018 brain MRI: Multiple foci of T2 lengthening are demonstrated in the subcortical, periventricular, centrum semiovale and central pontine white matter consistent with age-related small vessel gliosis. PROGNOSIS: good ACTIVITY: As tolerated. DIET: 2g sodium DISPOSITION: home DISCHARGE INSTRUCTIONS: 1. Follow-up with PCP within 1 week 2. Return here for emergency 3. Remain hydrated DISCHARGE CONDITION: Stable. TIME SPENT ON DISCHARGE: Greater than 35 minutes. Vital Signs/I&Os Vital Signs Date Time Temp Pulse Resp B/P (MAP) Pulse Ox O2 Delivery O2 Flow Rate FiO2 09/16/18 08:16 80 119/81 09/16/18 06:00 96.8 18 96 09/13/18 21:31 Room Air I&O- Last 24 Hours up to 6 AM 09/16/18 06:00 Intake Total 580 ml Output Total 150 ml Balance 430 ml Laboratory Data Labs 24H Laboratory Tests 2 09/16/18 06:28: Nucleated Red Blood Cells % (auto) 0.0, Anion Gap 7L, Glomerular Filtration Rate > 60.0, Blood Urea Nitrogen 16, Creatinine 1.12, Sodium Level 142, Potassium Level 4.0, Chloride Level 110H, Carbon Dioxide Level 25, Calcium Level 9.7 CBC/BMP Laboratory Tests 09/16/18 06:28 Red Blood Count 5.69, Mean Corpuscular Volume 85.2, Mean Corpuscular Hemoglobin 26.7 L, Mean Corpuscular Hemoglobin Concent 31.3 L, Red Cell Distribution Width 15.9 H, Calcium Level 9.7 Discharge Medications Scheduled (Senna Plus 8.6-50 mg) 1 Tab Tab, 2 TAB PO QHS, (Reported) Allopurinol (Zyloprim) 300 Mg Tab, 300 MG PO DAILY, (Reported) Aspirin (Aspirin 81) 81 Mg Tab, 81 MG PO DAILY, (Reported) Atorvastatin Calcium (Atorvastatin Calcium) 20 Mg Tab, 10 MG PO QHS, (Reported) Colchicine (Colchicine) 0.6 Mg Tab, 0.6 MG PO DAILY, (Reported) Eucerin (Eucerin) 1 Cre Cre, 1 APLCT TOP DAILY, (Reported) APPLY TO FEET Metoprolol Tartrate (Metoprolol Tartrate) 25 Mg Tab, 25 MG PO BID, (Reported) Spironolactone (Spironolactone) 25 Mg Tab, 25 MG PO BID, (Reported) Valsartan (Diovan) 160 Mg Tab, 160 MG PO DAILY, (Reported) Vitamin D (Drisdol) 50,000 Unit Cap, 50,000 UNIT PO 1XWK, (Reported) WEDNESDAY Scheduled PRN Acetaminophen (Acetaminophen) 325 Mg Tab, 650 MG PO Q4H PRN for MILD PAIN OR FEVER, (Reported) Senna (Cvs Senna) 8.6 Mg Tab, 8.6 MG PO BID PRN for CONSTIPATION, (Reported) Allergies Coded Allergies: shellfish derived (Verified Allergy, Severe, HIVES, DIFFICULTY BREATHING, 09/13/18) iodine (Verified Allergy, Unknown, 09/13/18) GME ATTESTATION GME ATTESTATION My faculty preceptor for this patient encounter was physically present during the encounter and was fully available. All aspects of the patient interview, examination, medical decision making process, and medical care plan development were reviewed and approved by the faculty preceptor. The faculty preceptor is aware and concurs with the plan as stated in the body of this note and will att est to such by his/her cosignature. MOJGAN OLSEN DO Sep 16, 2018 11:10
== END 2018-09-16 10:55 | disposition home or self-care (01) | DRG 92 ==
LOC: M ED 13:06 → M ED INP 17:54 → M PCU 22:10 → M MS5PR 09-15 14:49
PROVIDERS: ADMIT Internal Medicine; ATTEND Internal Medicine
DX: R29.6 Repeated falls (principal); M62.82 Rhabdomyolysis; N18.2 Chronic kidney disease, stage 2 (mild); M10.9 Gout, unspecified; E78.5 Hyperlipidemia, unspecified; R73.03 Prediabetes; I12.9 Hypertensive chronic kidney disease with stage 1 through stage 4 chronic kidney disease, or unspecified chronic kidney disease; M25.512 Pain in left shoulder; R74.0 Nonspecific elevation of levels of transaminase and lactic acid dehydrogenase [LDH]; M54.2 Cervicalgia; Z85.46 Personal history of malignant neoplasm of prostate; Z79.82 Long term (current) use of aspirin; Z79.899 Other long term (current) drug therapy; Z88.8 Allergy status to other drugs, medicaments and biological substances; Z91.013 Allergy to seafood; Z87.891 Personal history of nicotine dependence; Z86.73 Personal history of transient ischemic attack (TIA), and cerebral infarction without residual deficits

== ENCOUNTER → 2018-10-19 | Outpatient (CLI) | payer OTHER, MEDICARE ==
[~2018-10-19] MED LIST changes: +ATOR1TAB21 PO; +COLC1TAB13 PO; +EUCECRE3 TOP; +SENN-3 PO; +SENN-85 PO; +SENN1TAB40 PO; +SENN8.6T98 PO; +SPIR-10 PO; +VITA500045 PO; +ZYLO300T6 PO
--- NOTE | 2018-10-19 14:06 | REP ---
Left lower extremity Duplex Doppler venous ultrasound: Real time compression and duplex Doppler interrogation of the left lower extremity deep venous system is performed. The left common femoral, superficial femoral and popliteal veins are fully compressible with transducer pressure and demonstrate normal spontaneous and phasic flow, without evidence of deep venous thrombosis. Impression: No evidence of deep venous thrombosis of the left lower extremity femoral popliteal venous system. Electronically Signed by Armen Ghosh MD 10/19/2018 12:26 P
== END ==
LOC: M RAD 11:04
PROVIDERS: ATTEND Physician Assistant Medical
DX: Z86.718 Personal history of other venous thrombosis and embolism (principal)

== ENCOUNTER 2019-07-17 11:42 | Emergency (ER) | payer OTHER, MEDICARE ==
[~2019-07-17] VITALS: Ht 177.8 cm; Wt 129.1 kg
[~2019-07-17 11:42] MED LIST changes: +SENN-53 PO; -SENN1TAB40 PO
[2019-07-17 13:36] LABS: BASO # 0.1 10^3/uL (0.0-0.2); BASO % 1.1 % (0.0-1.0); EOS # 0.2 10^3/uL (0.0-0.5); EOS % 2.5 % (0.0-3.0); HEMATOCRIT 49.4 % (42.0-52.0); HEMOGLOBIN 15.1 g/dl (13.5-17.5); LYMPH # 2.6 10^3/uL (1.5-5.0); MEAN CORPUSCULAR HEMOGLOBIN 26.7 pg (27.0-33.0); MEAN CORPUSCULAR HGB CONC 30.6 g/dl (32.0-36.5); MEAN CORPUSCULAR VOLUME 87.4 fl (80.0-96.0); MONO # 0.7 10^3/uL (0.0-0.8); MONO % 9.1 % (0.0-5.0); NEUTROPHILS # 3.9 10^3/uL (1.5-8.5); PLATELET COUNT, AUTOMATED 157 10^3/uL (150-450); RED BLOOD COUNT 5.65 10^6/uL (4.30-6.10); WHITE BLOOD COUNT 7.5 10^3/uL (4.0-10.0)
[2019-07-17 13:47] LABS: INR 1.03; PROTHROMBIN TIME 13.2 SECONDS (11.8-14.0)
[2019-07-17 14:01] LABS: ALBUMIN 3.9 GM/DL (3.2-5.2); ALT/SGPT 15 U/L (12-78); BILIRUBIN,DIRECT 0.2 MG/DL (0.0-0.2); BILIRUBIN,TOTAL 0.5 MG/DL (0.2-1.0); BLOOD UREA NITROGEN 13 MG/DL (7-18); C REACTIVE PROTEIN QUANTITATIV 1.71 MG/DL (0.00-0.30); CALCIUM LEVEL 9.6 MG/DL (8.8-10.2); CARBON DIOXIDE LEVEL 30 MEQ/L (21-32); CHLORIDE LEVEL 105 MEQ/L (98-107); CREATININE FOR GFR 1.32 MG/DL (0.70-1.30); GLOMERULAR FILTRATION RATE > 60.0 (>42); GLUCOSE, FASTING 93 MG/DL (70-100); POTASSIUM SERUM 4.9 MEQ/L (3.5-5.1); SODIUM LEVEL 139 MEQ/L (136-145); TOTAL PROTEIN 7.7 GM/DL (6.4-8.2)
[2019-07-17 14:16] LABS: ERYTHROCYTE SEDIMENTATION RATE 5 mm/hr (0-20)
--- NOTE | 2019-07-17 14:20 | REP ---
Right foot four views: There are no comparisons. There is diffuse demineralization. 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 There is osteoarthritis of the DIP and PIP articulations. There are no lytic, blastic or destructive skeletal changes to suggest osteomyelitis. There is a calcaneal plantar spur. Electronically Signed by Armen Townsend MD 07/17/2019 02:12 P
[2019-07-17] MEDS ORDERED: NS 1,000 ML IV SCH (14:54)
[2019-07-17 19:40] VITALS: BP 164/90
== END 2019-07-17 20:14 | disposition home or self-care (01) ==
LOC: M ED 11:42
DX: L97.519 Non-pressure chronic ulcer of other part of right foot with unspecified severity (principal); I12.9 Hypertensive chronic kidney disease with stage 1 through stage 4 chronic kidney disease, or unspecified chronic kidney disease; N18.9 Chronic kidney disease, unspecified; R73.03 Prediabetes; E78.5 Hyperlipidemia, unspecified; M10.9 Gout, unspecified; M19.90 Unspecified osteoarthritis, unspecified site; Z79.899 Other long term (current) drug therapy; Z79.82 Long term (current) use of aspirin; Z88.8 Allergy status to other drugs, medicaments and biological substances; Z91.018 Allergy to other foods; Z87.891 Personal history of nicotine dependence

== ENCOUNTER → 2019-08-15 | Outpatient (CLI) | payer MEDICARE, OTHER ==
--- NOTE | 2019-08-15 15:39 | REP ---
RIGHT LOWER EXTREMITY DUPLEX DOPPLER ARTERIAL ULTRASOUND: Real-time ultrasound evaluation and duplex Doppler interrogation of right lower extremity arterial system is performed. Triphasic and biphasic waveforms are seen in the common femoral, superficial femoral, and popliteal arteries. Monophasic waveform is seen in the tibioperoneal trunk and distal anterior tibial artery. Posterior tibial artery is occluded. There is moderate to severe plaquing diffusely. PEAK SYSTOLIC VELOCITY RIGHT Common femoral artery 63.0 cm/s Profunda 54.0 Proximal SFA 110.0 Superficial femoral artery mid 89.0 Superficial femoral artery distal 81.0 Popliteal 89.0 Proximal anterior tibial artery 70.0 Tibioperoneal trunk 47.0 Proximal posterior tibial artery Occluded Distal posterior tibial artery 108.0 Electronically Signed by Armen Ghosh MD 08/15/2019 08:00 P
== END ==
LOC: M RAD 12:21
PROVIDERS: ATTEND Surgery
DX: I74.3 Embolism and thrombosis of arteries of the lower extremities (principal); L84 Corns and callosities

== ENCOUNTER → 2019-10-03 | Outpatient (POV) | payer MEDICARE, OTHER ==
--- NOTE | 2019-10-04 08:33 | IRCOV ---
[facility] [place] IR Consult Office Visit IR Consult Office Visit DATE: Oct 03, 2019 Tele consult. No video capability available on patient side. REASON FOR CONSULTATION/CHIEF COMPLAINT: right foot wound. HISTORY OF PRESENT ILLNESS: 74 non diabetic male with right lateral mid foot wound for 1 month status post callus removal. This is now reported as healed. 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 Patient denies intermittent claudication or rest pain. Positive history of ID and stroke with generalized weakness. HTN, hyperlipidemia, and neuropathic disease. Patient is ex smoker, quit 40 years ago. Denies chest pain, sob, orthopnea or paroxysmal nocturnal dyspnea. No prior leg angiogram or intervention. ALLERGIES: Please see below. HOME MEDICATIONS: Please see below. PAST MEDICAL HISTORY: CAD ID CVE HTN HL glucose intolerance prostate cancer CKD PAST SURGICAL HISTORY: radical prostatectomy right arm surgery FAMILY HISTORY: non contributory SOCIAL HISTORY: ex smoker, denies alcohol or drugs. REVIEW OF SYSTEMS: Otherwise negative PHYSICAL EXAMINATION: no video chat available on patient side LABORATORY DATA: 07/17/19 Hgb 15.1 HCT 49.4 wbc 7.5 PLT 157 Na 139 K 4.9 BUN 13 CR 1.32 LDL 86 in 2016 Imaging: I personally reviewed the arterial US imaging of the RLE performed august 2019. There is occlusion of the posterior tibial artery and patient has 1 run off vessel into the foot; AT which demonstrates monophasic waveform. 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 I agree he has indication for right leg angiogram and intervention if possible. We discussed the risk and benefits of the procedure and patient would like to proceed. we will schedule the patient for the procedure. I spent 30 minutes in consultation with the patient. Thank you for this referral. CC Dr. Bethea Allergies Coded Allergies: shellfish derived (Verified Allergy, Severe, HIVES, DIFFICULTY BREATHING, 09/13/18) iodine (Verified Allergy, Unknown, 09/13/18) Home Medications Scheduled Allopurinol (Zyloprim), 300 MG PO DAILY, (Reported) Aspirin (Aspirin EC), 81 MG PO DAILY, (Reported) Atorvastatin Calcium (Atorvastatin Calcium), 10 MG PO QHS, (Reported) Colchicine (Colchicine), 0.6 MG PO DAILY, (Reported) Ergocalciferol (Vitamin D2) (Drisdol), 50,000 UNIT PO 1XWK, (Reported) Eucerin (Eucerin), 1 APLCT TOP DAILY, (Reported) Metoprolol Tartrate (Metoprolol Tartrate), 25 MG PO BID, (Reported) Sennosides/Docusate Sodium (Senna Plus Tablet), 2 TAB PO QHS, (Reported) Spironolactone (Spironolactone), 25 MG PO BID, (Reported) Valsartan (Diovan), 160 MG PO DAILY, (Reported) Scheduled PRN Acetaminophen (Acetaminophen), 650 MG PO Q4H PRN for MILD PAIN OR FEVER, (Reported) Sennosides (Senna Laxative), 8.6 MG PO BID PRN for CONSTIPATION, (Reported) CLEMENTINA BLOOM MD Oct 04, 2019 08:33
== END ==
LOC: M IRPOV 10:12
PROVIDERS: ATTEND Radiology Diagnostic Radiology
DX: I73.9 Peripheral vascular disease, unspecified (principal); I25.2 Old myocardial infarction; I69.998 Other sequelae following unspecified cerebrovascular disease; R53.1 Weakness; I12.9 Hypertensive chronic kidney disease with stage 1 through stage 4 chronic kidney disease, or unspecified chronic kidney disease; N18.9 Chronic kidney disease, unspecified; I25.10 Atherosclerotic heart disease of native coronary artery without angina pectoris; R73.09 Other abnormal glucose; E78.5 Hyperlipidemia, unspecified; G62.9 Polyneuropathy, unspecified; Z87.891 Personal history of nicotine dependence; Z85.46 Personal history of malignant neoplasm of prostate

== ENCOUNTER → 2019-10-12 | Outpatient (CLI) | payer MEDICARE, OTHER ==
[~2019-10-12] MED LIST changes: +CLOP75TA2 PO; +ISOVUE-300 61% 50ML VIAL As Ordered ONE; +LIDOCAINE 1% MDV 20ML VIAL As Ordered ONE; +MIDAZOLAM INJ 2MG/2ML VIAL (J2250 PER 1MG) As Ordered ONE; +PERCOCET 5MG/325MG TAB As Ordered ONE; +diphenhydrAMINE 50MG/ML VIAL (J1200) As Ordered ONE; +fentaNYL 100 MCG/2 ML INJECTION (J3010) As Ordered ONE
[2019-10-12 08:52] LABS: HEMATOCRIT 46.5 % (42.0-52.0); HEMOGLOBIN 14.9 g/dl (13.5-17.5); MEAN CORPUSCULAR HEMOGLOBIN 27.8 pg (27.0-33.0); MEAN CORPUSCULAR VOLUME 86.8 fl (80.0-96.0); PLATELET COUNT, AUTOMATED 190 10^3/uL (150-450); RED BLOOD COUNT 5.36 10^6/uL (4.30-6.10); WHITE BLOOD COUNT 6.7 10^3/uL (4.0-10.0)
[2019-10-12 09:20] LABS: ALBUMIN 3.8 GM/DL (3.2-5.2); ALT/SGPT 18 U/L (12-78); BILIRUBIN,TOTAL 0.5 MG/DL (0.2-1.0); BLOOD UREA NITROGEN 18 MG/DL (7-18); CALCIUM LEVEL 9.3 MG/DL (8.8-10.2); CARBON DIOXIDE LEVEL 27 MEQ/L (21-32); CHLORIDE LEVEL 106 MEQ/L (98-107); CREATININE FOR GFR 1.35 MG/DL (0.70-1.30); GLOMERULAR FILTRATION RATE > 60.0 (>42); GLUCOSE, FASTING 101 MG/DL (70-100); POTASSIUM SERUM 4.1 MEQ/L (3.5-5.1); SODIUM LEVEL 138 MEQ/L (136-145); TOTAL PROTEIN 8.1 GM/DL (6.4-8.2)
--- NOTE | 2019-10-12 09:51 | IRHP ---
[facility] IR Pre-Procedure H & P General Date of Service: Oct 12, 2019 Procedure: Same Day Surgery Interval History and Physical I have seen the patient and reviewed last H & P performed within 30 days. There is no significant interval change. History of Present Illness Chief Complaint The patient is a 74-year-old male admitted with a reason for visit of PAD. PRE-PROCEDURE DIAGNOSIS: PAD HEART: normal rate. LUNGS: normal breathing at rest. ASA Classification ASA Classification: III-Severe systemic dis. Mallampati Score: II NPO: Yes Problems with prior sedation: No Obstructive Sleep Apnea: No Plan moderate sedation Allergies Coded Allergies: shellfish derived (Verified Allergy, Severe, HIVES, DIFFICULTY BREATHING, 09/13/18) iodine (Verified Allergy, Unknown, 09/13/18) Home Medications Scheduled Allopurinol (Zyloprim), 300 MG PO DAILY, (Reported) Aspirin (Aspirin EC), 81 MG PO DAILY, (Reported) Atorvastatin Calcium (Atorvastatin Calcium), 10 MG PO QHS, (Reported) Colchicine (Colchicine), 0.6 MG PO DAILY, (Reported) Ergocalciferol (Vitamin D2) (Drisdol), 50,000 UNIT PO 1XWK, (Reported) Eucerin (Eucerin), 1 APLCT TOP DAILY, (Reported) Metoprolol Tartrate (Metoprolol Tartrate), 25 MG PO BID, (Reported) Sennosides/Docusate Sodium (Senna Plus Tablet), 2 TAB PO QHS, (Reported) Spironolactone (Spironolactone), 25 MG PO BID, (Reported) Valsartan (Diovan), 160 MG PO DAILY, (Reported) Scheduled PRN Acetaminophen (Acetaminophen), 650 MG PO Q4H PRN for MILD PAIN OR FEVER, (Reported) Sennosides (Senna Laxative), 8.6 MG PO BID PRN for CONSTIPATION, (Reported) VS, I&O, 24H, Fishbone Vital Signs/I&O Vital Signs Date Time Temp Pulse Resp B/P (MAP) Pulse Ox O2 Delivery O2 Flow Rate FiO2 10/12/19 08:35 98.5 92 16 97 Room Air Laboratory Data 24H LABS Laboratory Tests 2 10/12/19 08:38: Nucleated Red Blood Cells % (auto) 0.0, Anion Gap 5L, Glomerular Filtration Rate > 60.0, Calcium Level 9.3, Total Bilirubin 0.5, Aspartate Amino Transf (AST/ SGOT) 9, Alanine Aminotransferase (ALT/SGPT) 18, Alkaline Phosphatase 86, Total Protein 8.1, Albumin 3.8, Albumin/Globulin Ratio 0.88L CBC/BMP Laboratory Tests 10/12/19 08:38 CLEMENTINA BLOOM MD Oct 12, 2019 09:51
--- NOTE | 2019-10-12 12:45 | POST-OPPD ---
Postoperative Procedure Note Date Of Procedure: Oct 12, 2019 Time Of Procedure: 12:40 see full report under imaging tab for procedure report. PREOPERATIVE DIAGNOSIS: PAD POSTOPERATIVE DIAGNOSIS: PAD FINDINGS: short segment popliteal artery stenosis > 80 % and multifocal anterior tibial and tibioperoneal trunk stenosis. PROCEDURE: popliteal, anterior tibial, tibio peroneal trunk and proximal posterior tibial artery angioplasty. Popliteal artery is now wide open with 100 % flow, improved flow in AT, TPT and peroneal artery. Improved flow in proximal PT; distal PT remains occluded. SURGEON: daren ANESTHESIA: mod sed ESTIMATED BLOOD LOSS: < 5 ml COMPLICATIONS: none POSTOPERATIVE CONDITION: stable CLEMENTINA BLOOM MD Oct 12, 2019 12:45
[2019-10-12 18:07] VITALS: BP 109/57
--- NOTE | 2019-10-13 08:07 | REP ---
IR Right leg angiogram. IR Selective right iliac artery catheterization. IR Selective right common femoral artery catheterization. IR Right popliteal artery angioplasty. IR Right anterior tibial artery angioplasty. IR Right tibioperoneal trunk angioplasty. IR Proximal posterior tibial artery angioplasty. IR Ultrasound guided left common femoral artery access. IR Moderate sedation. Clinical Information: Poor healing of right lower extremity wounds. Physician: Dr Meade.Procedure: The patient was advised of the benefits, risks, and alternatives of the procedure and informed consent was obtained.A time out was performed with verification of the patient's name, MRN, site of procedure, and type of procedure to be performed. The patient was positioned in the supine position on the angiographic table. The site was prepped and draped in the usual sterile fashion.Moderate sedation was performed by the physician including the presence of an independent trained observer who assisted in monitoring the patient's level of consciousness and physiological status. Following the administration of Fentanyl and Versed, the physician spent 120 minutes of continuous [id number] time with the patient. A consumer banker radiograph reveals no gross abnormality. Ultrasound of the left groin demonstrates a patent left common femoral artery. The left common femoral artery was accessed with a micropuncture kit under ultrasound guidance. A [employer] wire was advanced into the aorta. The micropuncture sheath was exchanged over the wire for a a 6-Indonesian vascular sheath. A flush catheter was advanced over the wire and used to catheterize the abdominal aorta. A pelvic arteriogram was performed. This demonstrates unremarkable infrarenal abdominal aorta. Patent bilateral common iliac arteries. Patent bilateral internal iliac arteries. Patent right external iliac artery. A Glidewire was advanced through the flush catheter and under fluoroscopy guidance was used to gain up and over access into the right common iliac artery. The flush catheter was exchanged over the wire for a glide cath. The glide cath in conjunction with a Glidewire was used to catheterize the right common femoral artery. A right leg angiogram was performed from this location. This demonstrates patent right superficial femoral and profunda femoris arteries. Mild atherosclerotic disease in the superficial femoral artery. Angiogram further down the leg was performed and this demonstrates patent distal superficial femoral artery and proximal popliteal artery. There is a focal short segment greater than 80% stenosis in the mid popliteal artery. Patent distal popliteal artery. A below-knee runoff arteriogram was performed and this demonstrates multifocal stenosis greater than 50% in the proximal anterior tibial artery. Greater than 50% stenosis at the tibioperoneal trunk. Complete occlusion of the mid and distal posterior tibial artery. The anterior tibial artery continues into the right foot. The peroneal artery is patent and terminates at the ankle. There are collaterals from the peroneal artery feeding the distal branches of the posterior tibial artery including calcaneal and plantar branches. A 6 x 200 mm [place] balloon was advanced over the wire under fluoroscopy guidance into the distal right superficial femoral artery and proximal popliteal artery. Angioplasty of the distal superficial femoral artery and popliteal artery were performed. Heparin was administered. The balloon was then deflated and repositioned in the mid and distal popliteal artery. Angioplasty was performed. The balloon was then deflated and removed over the wire. A post angioplasty angiogram was performed through the sheath in the iliac artery and this demonstrates complete resolution of the focal stenosis within the mid right popliteal artery. Improved flow through the distal superficial femoral artery and entire popliteal artery. The wire in conjunction with the catheter was used under fluoroscopy guidance to catheterize the right posterior tibial artery. A 3 x 200 mm [place] balloon was then advanced over the wire under fluoroscopy guidance into the proximal posterior tibial artery. Angioplasty was performed of the proximal posterior tibial artery and the tibioperoneal trunk. Additional heparin was administered. The balloon was then deflated and removed over the wire. Post angioplasty angiogram was performed and this demonstrates improved flow through the tibioperoneal trunk and proximal posterior tibial artery. A [place] catheter in conjunction with a wire was used to try to cannulate the mid and distal posterior tibial artery. This was unsuccessful with some soft tissue extravasation. The wire was retracted and in conjunction with the catheter was used to catheterize the anterior tibial artery. Angiography demonstrates multi segment stenosis within the right anterior tibial artery. The catheter was removed over the wire. A 3 x 200 mm [place] balloon was advanced over the wire into the right anterior tibial artery. Angioplasty of the right anterior tibial artery was performed. The balloon was then deflated and removed over the wire. A post angioplasty follow-up arteriogram was performed through the catheter in the popliteal artery, and demonstrates good flow through the distal popliteal artery the tibioperoneal trunk and the proximal anterior tibial artery. A completion angiogram to the foot was performed and this demonstrates improved flow through the anterior tibial artery which is patent all the way down into the foot, supplying dorsalis pedis. Improved flow through the peroneal artery and collateral supply to the plantar and calcaneal branches. No distal emboli, spasm, vessel cutoff or thrombosis. Catheter wire and sheath were removed, pressure held and hemostasis achieved. A sterile dressing was applied to the site. Patient tolerated the procedure well and was transferred to PRU in stable condition. Complications: None. Estimated blood loss: Less than 5 ml. Impression: 1. Right leg angiogram demonstrates focal short segment greater than 80% stenosis in the mid popliteal artery. 2. Below-knee runoff arteriogram demonstrates multifocal stenosis in the proximal anterior tibial artery and tibioperoneal trunk. The anterior tibial artery is patent and continues into the foot as dorsalis pedis. The peroneal artery is hypertrophied and patent to the ankle where it reconstitutes distal branches of the posterior tibial artery including calcaneal and plantar branches. Occlusion of the mid and distal right posterior tibial artery. 2. Successful angioplasty of focal popliteal artery stenosis with complete samaritan of flow. 4. Successful angioplasty of the right anterior tibial artery, tibioperoneal trunk and proximal posterior tibial artery with improved flow to the right foot. 5. Patient to follow up in IR clinic in 1 month. Thank you for this referral. Electronically Signed by Megan Meade MD 10/13/2019 08:05 A
== END ==
LOC: M IRPRO 08:15
PROVIDERS: ATTEND Radiology Diagnostic Radiology
DX: I70.239 Atherosclerosis of native arteries of right leg with ulceration of unspecified site (principal); Z79.899 Other long term (current) drug therapy; Z79.82 Long term (current) use of aspirin; Z91.013 Allergy to seafood; Z91.048 Other nonmedicinal substance allergy status

== ENCOUNTER 2020-08-25 01:27 | Emergency (ER) | payer MEDICARE, OTHER ==
[~2020-08-25] VITALS: Ht 182.9 cm; Wt 129.1 kg
[~2020-08-25 01:27] MED LIST changes: +COLC0.6T47 PO; -COLC1TAB13 PO; -ISOVUE-300 61% 50ML VIAL As Ordered ONE; -LIDOCAINE 1% MDV 20ML VIAL As Ordered ONE; -MIDAZOLAM INJ 2MG/2ML VIAL (J2250 PER 1MG) As Ordered ONE; -PERCOCET 5MG/325MG TAB As Ordered ONE; -diphenhydrAMINE 50MG/ML VIAL (J1200) As Ordered ONE; -fentaNYL 100 MCG/2 ML INJECTION (J3010) As Ordered ONE
[2020-08-25] MEDS ORDERED: ACETAMINOPHEN TAB 650MG DOSE (2X325MG) PO ONE (01:50)
[2020-08-25] MEDS ORDERED: LR 1,000 ML IV ONE (03:25)
[2020-08-25 03:31] LABS: BASO # 0.1 10^3/uL (0.0-0.2); BASO % 0.7 % (0.0-1.0); EOS # 0.2 10^3/uL (0.0-0.5); EOS % 2.5 % (0.0-3.0); HEMATOCRIT 41.8 % (42.0-52.0); HEMOGLOBIN 12.9 g/dl (13.5-17.5); LYMPH # 2.3 10^3/uL (1.5-5.0); MEAN CORPUSCULAR HEMOGLOBIN 26.3 pg (27.0-33.0); MEAN CORPUSCULAR HGB CONC 30.9 g/dl (32.0-36.5); MEAN CORPUSCULAR VOLUME 85.1 fl (80.0-96.0); MONO # 0.7 10^3/uL (0.0-0.8); MONO % 9.9 % (2.0-8.0); NEUTROPHILS # 3.6 10^3/uL (1.5-8.5); NEUTROPHILS % 52.6 % (36.0-66.0); PLATELET COUNT, AUTOMATED 299 10^3/uL (150-450); RED BLOOD COUNT 4.91 10^6/uL (4.30-6.10); WHITE BLOOD COUNT 6.8 10^3/uL (4.0-10.0)
--- NOTE | 2020-08-25 03:37 | REPVR ---
PROCEDURE INFORMATION: Exam: CT Head Without Contrast Exam date and time: 08/25/2020 3:03 AM Age: 75 years old Clinical indication: Weakness, extremity; Bilateral; Additional info: CVA - nursing interventions must not delay CT TECHNIQUE: Imaging protocol: Computed tomography of the head without contrast. Radiation optimization: All CT scans at this facility use at least one of these dose optimization techniques: automated exposure control; mA and/or kV adjustment per patient size (includes targeted exams where dose is matched to clinical indication); or iterative reconstruction. COMPARISON: CT Head without contrast 09/13/2018 1:48 PM FINDINGS: Brain: There is no CT evidence for an acute large vessel territorial infarct. There are chronic lacunar infarcts involving the bilateral thalami and bilateral basal ganglia, which are similar in appearance compared to the prior CT head on 09/13/2018. There are non-specific foci of low attenuation in the periventricular and subcortical white matter and chase, which are likely the sequela of chronic small vessel ischemic injury and are similar in appearance compared to the prior CT head on 09/13/2018. Cerebral ventricles: Normal. No hydrocephalus. Bones/joints: The skull is intact. No suspicious osteolytic or osteoblastic lesion. Paranasal sinuses: The imaged portions of the sinuses are well-aerated. No air-fluid levels are noted in the sinuses. Mastoid air cells: Clear. Vasculature: There are atherosclerotic calcifications of the intracranial portion of the internal carotid arteries. Soft tissues: Unremarkable. No soft tissue fluid collection. IMPRESSION: 1. No acute intracranial abnormality. 2. Chronic lacunar infarcts involving the bilateral thalami and bilateral basal ganglia, which are similar in appearance compared to the prior CT head on 09/13/2018. 3. Periventricular and subcortical white matter changes, which are likely the sequela of chronic small vessel ischemic injury and are similar in appearance compared to the prior CT head on 09/13/2018. Electronically signed by: Nahum Sanchez On 08/25/2020 03:36:44 AM
--- NOTE | 2020-08-25 03:49 | REPVR ---
PROCEDURE INFORMATION: Exam: XR Chest Exam date and time: 08/25/2020 3:30 AM Age: 75 years old Clinical indication: CVA TECHNIQUE: Imaging protocol: XR of the chest Views: 1 view. COMPARISON: CR Chest, 2 view PA, Lat 02/03/2017 2:42 PM FINDINGS: Lungs: Unremarkable. No consolidation. No pulmonary edema. Pleural spaces: Unremarkable. No pleural effusion. No pneumothorax. Heart/Mediastinum: Unremarkable. No cardiomegaly. Vasculature: There are atherosclerotic calcifications of the aortic arch. Bones/joints: There are endplate spurs in the thoracic spine. IMPRESSION: No acute findings. Electronically signed by: Nahum Sanchez On 08/25/2020 03:49:28 AM
[2020-08-25 04:05] LABS: ALBUMIN 3.1 GM/DL (3.2-5.2); ALT/SGPT 15 U/L (12-78); BILIRUBIN,DIRECT 0.1 MG/DL (0.0-0.2); BILIRUBIN,TOTAL 0.3 MG/DL (0.2-1.0); BLOOD UREA NITROGEN 20 MG/DL (7-18); CALCIUM LEVEL 8.7 MG/DL (8.8-10.2); CARBON DIOXIDE LEVEL 30 MEQ/L (21-32); CHLORIDE LEVEL 109 MEQ/L (98-107); CK-MB VALUE MASS 2.3 NG/ML (<3.6); CPK CREATINE PHOSPHOKINASE 225 U/L (39-308); CREATININE FOR GFR 1.23 MG/DL (0.70-1.30); GLOMERULAR FILTRATION RATE > 60.0 (>42); GLUCOSE, FASTING 90 MG/DL (70-100); MB/CK RELATIVE INDEX 1.02 (< OR =4); POTASSIUM SERUM 4.9 MEQ/L (3.5-5.1); SODIUM LEVEL 142 MEQ/L (136-145); TOTAL PROTEIN 7.2 GM/DL (6.4-8.2); TROPONIN I < 0.02 NG/ML (< 0.10)
[2020-08-25 05:30] VITALS: BP 138/69
[2020-08-25] MEDS ORDERED: CYCL5TAB PO (05:58)
--- NOTE | 2020-08-25 09:46 | ECGEPIP ---
[facility] - ED Test Date: 2020-08-25 Pat Name: ILANA HENDRICKS Department: Room: - Gender: Male Algorithm Developer: STEVIE : 1945 Requested By: RADHA MAGALLON Order Number: [id number] Reading MD: Suresh Rodrigues Measurements Intervals [employer] Rate: 81 P: 34 SC: 168 QRS: -23 QRSD: 74 T: 17 QT: 368 QTc: 427 Interpretive Statements Normal sinus rhythm BASELINE ARTIFACT AFFECTS INTERPRETATION Electronically Signed on 08-25-2020 9:46:32 EDT by Suresh Rodrigues
== END 2020-08-25 06:46 | disposition home or self-care (01) ==
LOC: M ED 01:27
DX: E86.0 Dehydration (principal); I10 Essential (primary) hypertension; Z79.899 Other long term (current) drug therapy; Z79.82 Long term (current) use of aspirin; Z79.01 Long term (current) use of anticoagulants; Z88.8 Allergy status to other drugs, medicaments and biological substances; Z91.018 Allergy to other foods

== ENCOUNTER 2020-12-20 19:19 | Inpatient (IN) | payer MEDICARE, OTHER ==
[~2020-12-20] VITALS: Ht 182.9 cm; Wt 108.3 kg
[~2020-12-20 19:19] MED LIST changes: +CYCL5TAB PO
[2020-12-21 00:13] LABS: BASO # 0.1 10^3/uL (0.0-0.2); BASO % 0.7 % (0.0-1.0); EOS # 0.1 10^3/uL (0.0-0.5); EOS % 0.7 % (0.0-3.0); ERYTHROCYTE SEDIMENTATION RATE 44 mm/hr (0-20); HEMATOCRIT 43.4 % (42.0-52.0); HEMOGLOBIN 13.9 g/dl (13.5-17.5); LYMPH # 2.4 10^3/uL (1.5-5.0); LYMPH % 25.8 % (24.0-44.0); MEAN CORPUSCULAR HEMOGLOBIN 26.3 pg (27.0-33.0); MONO # 0.8 10^3/uL (0.0-0.8); MONO % 8.7 % (2.0-8.0); NEUTROPHILS # 5.9 10^3/uL (1.5-8.5); NEUTROPHILS % 63.7 % (36.0-66.0); PLATELET COUNT, AUTOMATED 210 10^3/uL (150-450); RED BLOOD COUNT 5.29 10^6/uL (4.30-6.10); WHITE BLOOD COUNT 9.2 10^3/uL (4.0-10.0)
[2020-12-21 00:25] LABS: BLOOD UREA NITROGEN 14 MG/DL (7-18); CARBON DIOXIDE LEVEL 29 MEQ/L (21-32); CHLORIDE LEVEL 105 MEQ/L (98-107); CREATININE FOR GFR 1.11 MG/DL (0.70-1.30); GLOMERULAR FILTRATION RATE > 60.0 (>42); GLUCOSE, FASTING 103 MG/DL (70-100); POTASSIUM SERUM 4.4 MEQ/L (3.5-5.1); SODIUM LEVEL 138 MEQ/L (136-145)
[2020-12-21] MEDS ORDERED: EUCECRE8 TP (01:52)
[2020-12-21] MEDS ORDERED: ERGO500029 PO (01:52)
[2020-12-21] MEDS ORDERED: ALLO300T2 PO (01:52)
[2020-12-21] MEDS ORDERED: MOM 30ML SUSPENSION UDC PO PRN (02:40)
[2020-12-21] MEDS ORDERED: VANCOMYCIN HCL 1,000 MG, VIAL MATE ADAPTER 1 EACH in NS 250 ML IV SCH (02:40)
[2020-12-21] MEDS ORDERED: MAALOX 30 ML SUSP *UDC PO PRN (02:40)
[2020-12-21] MEDS ORDERED: VANCOMYCIN HCL 1,000 MG, VIAL MATE ADAPTER 1 EACH in NS 250 ML IV ONE ×2 (03:00→04:00)
--- NOTE | 2020-12-21 03:24 | REPVR ---
PROCEDURE INFORMATION: Exam: XR Right Foot Exam date and time: 12/21/2020 1:19 AM Age: 75 years old Clinical indication: Other: Ulcer lateral aspect, R/O osteomyelitis TECHNIQUE: Imaging protocol: XR Right foot. Views: 3 or more views. COMPARISON: CR Foot, complete 07/17/2019 1:57 PM FINDINGS: Bones/joints: Fusion of the interphalangeal joint of the great toe. Early degenerative change the 1st metatarsophalangeal joint. Osteopenia. Mild degenerative change at several tarsometatarsal joints, particularly the 1st and 2nd and to a lesser degree the 3rd. Ulceration adjacent to the proximal 5th metatarsal with underlying erosion and probable distracted fracture. Degenerative changes noted between the navicular and cuneiforms. There is moderate degenerative spurring over the dorsum of the tarsus. Mild inferior calcaneal spurring. Soft tissues: Ulceration adjacent to the proximal 5th metatarsal. IMPRESSION: 1. Ulceration adjacent to the proximal 5th metatarsal with interval erosion and fracturing of the proximal 5th metatarsal since 07/17/2019 consistent with osteomyelitis. 2. Scattered areas of degenerative/arthritic changes. 3. Ankylosis or fusion at the interphalangeal joint of the great toe. Electronically signed by: Ravinder Francois On 12/21/2020 03:23:41 AM
[2020-12-21 03:40] VITALS: BP 143/88
[2020-12-21] MEDS ORDERED: SENNA 8.6 MG TAB (SENOKOT) PO PRN (03:40)
[2020-12-21] MEDS: SPIRONOLACTONE 25 MG TAB PO SCH ×3 (04:25→21:37)
[2020-12-21] MEDS: ACETAMINOPHEN TAB 650MG DOSE (2X325MG) PO PRN ×3 (04:25→21:36)
[2020-12-21] MEDS: METOPROLOL TART 25 MG TABLET PO SCH ×3 (04:26→21:38)
[2020-12-21] MEDS: ATORVASTATIN 20 MG TAB PO SCH ×2 (04:26→21:38)
[2020-12-21] MEDS: SENOKOT S TAB PO SCH ×2 (04:31→21:37)
[2020-12-21] MEDS: ceFAZolin SOD 1 GM in D5W MINI-BAG PLUS 50 ML IV SCH ×3 (05:32→21:39)
[2020-12-21] MEDS: HEPARIN SOD (PORCINE) 5000UNITS/ML 1ML VIAL/SYRINGE SC SCH ×3 (05:32→21:38)
[2020-12-21 06:00] VITALS: BP 130/72
--- NOTE | 2020-12-21 06:51 | HPEPDOC ---
[facility] Medical History & Physical Date of Admission Dec 21, 2020 Date of Service: Dec 21, 2020 Attending Physician: KASSANDRA REZA MD History and Physical TIME OF SERVICE: 4:53 AM CHIEF COMPLAINT: Sent to the ER by caregiver HISTORY OF PRESENT ILLNESS: Mr. Ferrell came to the ER at the behest of his caregiver who noted that the chronic ulcer that he has had in his right foot is now draining foul smelling fluid. The patient usually follows up with Dr. Bethea for the wound. He denied having any pain from the ulcer, denied being diabetic and denied having fevers or chills. 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 HOME MEDICATIONS: Please see below. PHYSICAL EXAMINATION: Vital Signs Date Time Temp Pulse Resp B/P (MAP) Pulse Ox O2 Delivery O2 Flow Rate FiO2 12/20/20 19:19 99.2 114 20 128/68 (88) 98 Room Air GEN: well nourished / well developed/ NAD INTEGUMENT: not flushed/right mid foot is wrapped in clean and dry dressings there is an ulcer with a callus on the plantar aspect of his right toe /the skin on the right lower extremities has decreased hair distribution and is shiny HEENT: mucus membranes moist and pink CVS: RRR/NMRG/ no lower extremity edema LUNGS: able to speak full sentences without stopping to take a breath / no coughing / lungs are clear to auscultation bilaterally on room air MSK/EXTREMITIES: range of motion intact in all 4 extremities / no scoliosis / no kyphosis NEURO: CN 2-12 are grossly intact / speech is not dysarthric PSYCH: alert and oriented to person place and time/ able to understand and follow all commands LABORATORY DATA: IMAGING: Foot x-ray IMPRESSION: 1. Ulceration adjacent to the proximal 5th metatarsal with interval erosion and fracturing of the proximal 5th metatarsal since 07/17/2019 consistent with osteomyelitis. 2. Scattered areas of degenerative/arthritic changes. 3. Ankylosis or fusion at the interphalangeal joint of the great toe. MICROBIOLOGY: Respiratory panel is pending ASSESSMENT: Mr. Cid is a 75-year-old male with a hx of essential hypertension, CVA, CKD 2, Osteopenia, Gout, DLP, OA and chronic foot ulcer who was admitted for right fifth metatarsal osteomyelitis. PLAN: 1. Right fifth metatarsal osteomyelitis Plan: Admit to medical floor/start vancomycin and cefazolin pending PCR for MRSA and blood cultures/we will ask the daytime team to consult podiatry as he will likely need surgery and consider ordering CTA of the lower extremity with runoff to determine if the patient needs vascular intervention 2 CVA with residual lower extremity weakness / Dyslipidemia Plan: Fall precautions/ ASA, atorvastatin 3 CKD 2 Plan: Follow-up BMP 4 Osteopenia Plan: Follow-up with PCP for osteoporosis work-up 5 Gout Plan: Allopurinol 6 Essential HTN Plan: Metoprolol, spironolactone, valsartan DVT PROPHYLAXIS: Heparin DISPOSITION: home after more than 2 midnight's stay Home Medications Scheduled Aspirin (Aspirin EC) 81 Mg Tab, 81 MG PO DAILY Atorvastatin Calcium (Atorvastatin Calcium) 20 Mg Tab, 10 MG PO QHS Colchicine (Colchicine) 0.6 Mg Tab, 0.6 MG PO DAILY Ergocalciferol (Vitamin D2) (Vitamin D2) 50,000 Units Cap, 50,000 UNITS PO QMONTH Lanolin Alcohol/Mo/W.pet/[place] (Eucerin Creme) 454 Gm Cream..g., 1 APPLIC TP DAILY TO FEET Metoprolol Tartrate (Metoprolol Tartrate) 25 Mg Tab, 25 MG PO BID Sennosides/Docusate Sodium (Senna Plus Tablet) 1 Tab Tab, 2 TAB PO QHS Spironolactone (Spironolactone) 25 Mg Tab, 25 MG PO BID Valsartan (Diovan) 160 Mg Tab, 160 MG PO DAILY allopurinoL (allopurinoL) 300 Mg Tablet, 300 MG PO DAILY Scheduled PRN Acetaminophen (Acetaminophen) 325 Mg Tab, 650 MG PO Q4H PRN for MILD PAIN OR FEVER Sennosides (Senna Laxative) 8.6 Mg Tab, 8.6 MG PO BID PRN for CONSTIPATION Allergies Coded Allergies: shellfish derived (Verified Allergy, Severe, HIVES, DIFFICULTY BREATHING, 09/13/18) iodine (Verified Allergy, Unknown, 09/13/18) A-FIB/CHADSVASC A-FIB History Current/History of A-Fib/PAF?: No Current PO Anticoag Therapy: No KASSANDRA REZA MD Dec 21, 2020 06:51
[2020-12-21 07:00] LABS: HEMATOCRIT 40.9 % (42.0-52.0); HEMOGLOBIN 13.2 g/dl (13.5-17.5); MEAN CORPUSCULAR HEMOGLOBIN 26.5 pg (27.0-33.0); MEAN CORPUSCULAR HGB CONC 32.3 g/dl (32.0-36.5); MEAN CORPUSCULAR VOLUME 82.1 fl (80.0-96.0); PLATELET COUNT, AUTOMATED 288 10^3/uL (150-450); RED BLOOD COUNT 4.98 10^6/uL (4.30-6.10); WHITE BLOOD COUNT 7.5 10^3/uL (4.0-10.0)
[2020-12-21 07:31] LABS: BLOOD UREA NITROGEN 13 MG/DL (7-18); CARBON DIOXIDE LEVEL 26 MEQ/L (21-32); CHLORIDE LEVEL 104 MEQ/L (98-107); CREATININE FOR GFR 1.09 MG/DL (0.70-1.30); GLOMERULAR FILTRATION RATE > 60.0 (>42); GLUCOSE, FASTING 102 MG/DL (70-100); POTASSIUM SERUM 4.2 MEQ/L (3.5-5.1); SODIUM LEVEL 136 MEQ/L (136-145)
[2020-12-21] MEDS: COLCHICINE 0.6 MG TABLET PO SCH (09:50)
[2020-12-21] MEDS: VALSARTAN 80 MG TAB (DIOVAN) PO SCH (09:50)
[2020-12-21] MEDS: allopurinoL 300 MG TAB PO SCH (09:51)
[2020-12-21] MEDS: ASPIRIN 81MG ENTERIC TABLET PO SCH (09:51)
--- NOTE | 2020-12-21 12:14 | CR ---
CONSULTATION DATE: 12/21/2020 REASON FOR CONSULTATION: Right foot ulcer. HISTORY OF PRESENT ILLNESS: Nate Cid is a 75-year-old diabetic male with an ulcer to his right foot. He is not quite sure how long the ulcer has been there. He is a previous patient of Dr. Bethea and has seen Dr. Leal but both over a year ago since he has been last seen. MEDICAL HISTORY: Includes hypertension, history of CVA, chronic kidney disease stage 2, osteopenia, gout, dyslipidemia, arthritis, prostate cancer, DVT, vitamin B12 and vitamin D deficiency. SURGICAL HISTORY: Includes angioplasty, right meniscus surgery, left arm surgery, colon polypectomy. SOCIAL HISTORY: Former smoker. ALLERGIES: IODINE AND SHELLFISH. REVIEW OF SYSTEMS: He denies nausea, vomiting, fevers or chills. Vitals reviewed, T-max 99.2. Labs reviewed. White blood cell count today 7.5. ESR on admission 44. CRP is 12.2. Imaging studies: X-ray shows ulceration on the lateral aspect of the 5th metatarsal base, erosive changes that are suggestive of osteomyelitis. He also has joint erosions which are consistent with Charcot deformity. PHYSICAL EXAMINATION: Lower extremity examination: Pedal pulses are none palpable. He has diminished protective sensation on the right side. There is an ulceration with necrotic tissue and eschar on the lateral 5th metatarsal base. ASSESSMENT: 75-year-old male with right foot ulceration and osteomyelitis. TREATMENT: Bedside wound debridement performed excisional with a dermal curet including subcutaneous tissue, tendon and bone. Wound culture was taken. PLAN: There are plans for an arterial ultrasound. He is already on empiric antibiotics. Wound care orders written. Will follow.
[2020-12-21 14:00] VITALS: BP 125/70
--- NOTE | 2020-12-21 14:13 | IPNPDOC ---
Text Note Date of Service The patient was seen on 12/21/20. NOTE Subjective: Patient is a 75-year-old male who presented to the emergency depa rtment after his caregiver told him that the chronic ulcer on his right foot was not draining a foul-smelling fluid. Patient follows with Dr. Bethea for the wound. Patient denies being diabetic. Patient has had angioplasty performed in his right lower extremity in September 2019. Patient states he is otherwise feeling well. Review of systems: General: Patient denies fevers HEENT: Patient denies headaches Cardiovascular: Patient denies chest pain Respiratory: Patient denies shortness of breath, cough GI: Patient denies abdominal pain, nausea, vomiting, diarrhea : Patient denies increased frequency or pain with urination Extremities: Patient reports pain bleeding from the ulcer on his right foot. Patient denies any swelling in his feet. Neurological: Patient denies numbness or tingling in legs Physical exam: Vitals: See below General: Alert and oriented male patient who was laying in bed when I walked in the room. Patient did not appear to be in any acute distress. HEENT: Normocephalic, atraumatic, moist mucous membranes. Neck: No lymphadenopathy or thyromegaly Cardiac: Regular rate and rhythm, no murmurs, normal S1, normal S2 Pulm: Clear to auscultation bilaterally. No wheezes, rhonchi, rales Abd: Nondistended, nontender to palpation, normal bowel sounds Ext: No edema bilateral lower extremities 1/4 dorsalis pedis and posterior tibial pulses bilateral lower extremities Labs: See below Imaging: No new imaging has been performed. Assessment/plan: 75-year-old male who presented to the hospital with a chronic foot ulcer which appears to have become a osteomyelitis of the fifth metatarsal based on x-ray findings. 1. Right fifth metatarsal osteomyelitis. Patient was started on vancomycin and cefazolin. Podiatry has seen the patient and debrided the wound and took wound cultures. Patient will continue on antibiotics at this time. I appreciate the recommendations from Dr. Moncada. 2. Peripheral vascular disease. Patient had angioplasty [place] [address] Meade. Patient does have diminished peripheral pulses. Arterial ultrasound has been ordered as the patient has an allergy to iodine and shellfish derived products and has a history of CKD stage II. 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 Patient is a full assist. Continue his home medications. 4. CKD stage II. Patient's creatinine is better today. 5. Osteopenia. Patient will need to follow-up with PCP for osteoporosis. 6. Gout. Allopurinol. 7. Essential hypertension. Continue home medications. DVT Prophylaxis: Heparin Disposition: Pending culture results and definitive treatment for infection. VS,Fishbone, I+O VS, Fishbone, I+O Laboratory Tests 12/20/20 23:31 12/21/20 06:29 Vital Signs Date Time Temp Pulse Resp B/P (MAP) Pulse Ox O2 Delivery O2 Flow Rate FiO2 12/21/20 06:00 98.1 77 19 130/72 (91) 97 Room Air I&O- Last 24 Hours up to 6 AM 12/21/20 06:00 Intake Total 90 ml Balance 90 ml RODY HOROWITZ DO Dec 21, 2020 14:13
[2020-12-21] MEDS: VANCOMYCIN HCL 750 MG, VIAL MATE ADAPTER 1 EACH in NS 250 ML IV SCH (15:21)
[2020-12-21] MEDS: VANCOMYCIN HCL 500 MG in D5W MINI-BAG PLUS 100 ML IV SCH (16:37)
[2020-12-21 22:00] VITALS: BP 128/76
[2020-12-22] MEDS: VANCOMYCIN HCL 750 MG, VIAL MATE ADAPTER 1 EACH in NS 250 ML IV SCH ×2 (03:50→16:10)
[2020-12-22] MEDS: VANCOMYCIN HCL 500 MG in D5W MINI-BAG PLUS 100 ML IV SCH ×2 (05:03→17:18)
[2020-12-22 06:00] VITALS: BP 130/71
[2020-12-22] MEDS: HEPARIN SOD (PORCINE) 5000UNITS/ML 1ML VIAL/SYRINGE SC SCH ×3 (06:00→21:13)
[2020-12-22] MEDS: ceFAZolin SOD 1 GM in D5W MINI-BAG PLUS 50 ML IV SCH ×3 (06:20→21:13)
[2020-12-22 06:53] LABS: HEMOGLOBIN 12.6 g/dl (13.5-17.5); MEAN CORPUSCULAR HEMOGLOBIN 26.3 pg (27.0-33.0); MEAN CORPUSCULAR HGB CONC 31.5 g/dl (32.0-36.5); MEAN CORPUSCULAR VOLUME 83.5 fl (80.0-96.0); PLATELET COUNT, AUTOMATED 295 10^3/uL (150-450); RED BLOOD COUNT 4.79 10^6/uL (4.30-6.10); WHITE BLOOD COUNT 7.4 10^3/uL (4.0-10.0)
[2020-12-22 07:14] LABS: BLOOD UREA NITROGEN 17 MG/DL (7-18); CALCIUM LEVEL 8.7 MG/DL (8.8-10.2); CARBON DIOXIDE LEVEL 25 MEQ/L (21-32); CHLORIDE LEVEL 108 MEQ/L (98-107); CREATININE FOR GFR 1.09 MG/DL (0.70-1.30); GLOMERULAR FILTRATION RATE > 60.0 (>42); GLUCOSE, FASTING 104 MG/DL (70-100); POTASSIUM SERUM 4.7 MEQ/L (3.5-5.1); SODIUM LEVEL 141 MEQ/L (136-145)
[2020-12-22] MEDS: allopurinoL 300 MG TAB PO SCH (09:06)
[2020-12-22] MEDS: SPIRONOLACTONE 25 MG TAB PO SCH ×2 (09:07→21:14)
[2020-12-22] MEDS: METOPROLOL TART 25 MG TABLET PO SCH ×2 (09:07→21:18)
[2020-12-22] MEDS: ASPIRIN 81MG ENTERIC TABLET PO SCH (09:07)
[2020-12-22] MEDS: VALSARTAN 80 MG TAB (DIOVAN) PO SCH (09:07)
[2020-12-22] MEDS: COLCHICINE 0.6 MG TABLET PO SCH (09:07)
--- NOTE | 2020-12-22 11:50 | IPNPDOC ---
Text Note Date of Service The patient was seen on 12/22/20. NOTE Subjective: Patient is a 75-year-old female presented to the emergency depart ment after his copy lathe tender of her told him that the chronic ulcer on his right foot was now draining a foul-smelling fluid. Patient follows with Dr. Bethea for the wound. Podiatry saw the wound yesterday and debrided at bedside. Patient is otherwise feeling well and does not have any complaints today. Review of systems: General: Patient denies fevers HEENT: Patient denies headaches Cardiovascular: Patient denies chest pain Respiratory: Patient denies shortness of breath, cough GI: Patient denies abdominal pain, nausea, vomiting, diarrhea : Patient denies increased frequency or pain with urination Extremities: Patient denies any pain from the ulcer at this time. Neurological: Patient denies numbness or tingling in legs Physical exam: Vitals: See below General: Alert and oriented male patient who was laying in bed when I walked in the room. Patient did not appear to be in any acute distress HEENT: Normocephalic, atraumatic, moist mucous membranes. Neck: No lymphadenopathy or thyromegaly Cardiac: Regular rate and rhythm, no murmurs, normal S1, normal S2 Pulm: Clear to auscultation bilaterally. No wheezes, rhonchi, rales Abd: Nondistended, nontender to palpation, normal bowel sounds Ext: No edema bilateral lower extremities. 1/4 dorsalis pedis and posterior tibial pulses bilateral lower extremities. Labs: See below Imaging: No new imaging has been performed Assessment/plan: 75-year-old male who presented the hospital with chronic foot ulcer which appears to have become osteomyelitis of the fifth metatarsal based on x-ray findings. 1. Right fifth metatarsal osteomyelitis. Patient is on vancomycin and cefazolin. Patient was seen by podiatry who debrided the wound and took wound cultures. We will continue with antibiotics at this time and I appreciate Dr. Moncada's advice and help treating the patient. 2. Peripheral vascular disease. Patient had angioplasty [place] [address] Meade. Patient has diminished peripheral pulses. Arterial ultrasound has been ordered. This will be done tomorrow. 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 Patient is a full assist. Continue therapy and home medications. 4. Chronic kidney disease stage II. Patient's creatinine is within normal range today. 5. Osteopenia. Patient will need to follow-up with PCP for osteoporosis. 6. Gout. Continue allopurinol. 7. Essential hypertension. Continue with home medications. DVT Prophylaxis: Heparin Disposition: Pending culture results for definitive treatment. VS,Fishbone, I+O VS, Fishbone, I+O Laboratory Tests 12/22/20 06:20 Vital Signs Date Time Temp Pulse Resp B/P (MAP) Pulse Ox O2 Delivery O2 Flow Rate FiO2 12/22/20 09:07 70 130/71 12/22/20 06:00 97.6 18 99 Room Air I&O- Last 24 Hours up to 6 AM 12/22/20 06:00 Intake Total 1460 ml Balance 1460 ml RODY HOROWITZ DO Dec 22, 2020 11:50
[2020-12-22 14:00] VITALS: BP 124/76
[2020-12-22] MEDS: ATORVASTATIN 20 MG TAB PO SCH (21:14)
[2020-12-22] MEDS: SENOKOT S TAB PO SCH (21:14)
[2020-12-22 22:00] VITALS: BP 132/71
[2020-12-23] MEDS: VANCOMYCIN HCL 750 MG, VIAL MATE ADAPTER 1 EACH in NS 250 ML IV SCH ×2 (03:47→15:46)
[2020-12-23] MEDS: VANCOMYCIN HCL 500 MG in D5W MINI-BAG PLUS 100 ML IV SCH ×2 (04:38→17:27)
[2020-12-23] MEDS: ceFAZolin SOD 1 GM in D5W MINI-BAG PLUS 50 ML IV SCH ×3 (05:52→21:42)
[2020-12-23] MEDS: HEPARIN SOD (PORCINE) 5000UNITS/ML 1ML VIAL/SYRINGE SC SCH ×3 (05:53→21:43)
[2020-12-23 06:00] VITALS: BP 134/79
[2020-12-23] MEDS: allopurinoL 300 MG TAB PO SCH (08:39)
[2020-12-23] MEDS: ASPIRIN 81MG ENTERIC TABLET PO SCH (08:39)
[2020-12-23] MEDS: METOPROLOL TART 25 MG TABLET PO SCH ×2 (08:39→21:44)
[2020-12-23] MEDS: VALSARTAN 80 MG TAB (DIOVAN) PO SCH (08:39)
[2020-12-23] MEDS: COLCHICINE 0.6 MG TABLET PO SCH (08:40)
[2020-12-23] MEDS: SPIRONOLACTONE 25 MG TAB PO SCH ×2 (08:40→21:44)
--- NOTE | 2020-12-23 12:58 | IPNPDOC ---
Text Note Date of Service The patient was seen on 12/23/20. NOTE Subjective: Patient is a 75-year-old male who presented to the emergency department after his needle loom setter told him that the chronic ulcer on his right foot was now draining foul-smelling fluid. Patient follows with Dr. Bethea for wound care. Podiatry saw the patient 2 days ago and debrided the wound at bedside. Patient is feeling well and denies any other complaints today. Review of systems: General: Patient denies fevers HEENT: Patient denies headaches Cardiovascular: Patient denies chest pain Respiratory: Patient denies shortness of breath, cough GI: Patient denies abdominal pain, nausea, vomiting, diarrhea : Patient denies increased frequency or pain with urination Extremities: Patient denies any pain from the ulcer at this time. Neurological: Patient denies numbness or tingling in legs Physical exam: Vitals: See below General: Alert and oriented male patient who was sitting in the bedside chair and I walked in the room. Patient not appear to be in any acute distress. HEENT: Normocephalic, atraumatic, moist mucous membranes. Neck: No lymphadenopathy or thyromegaly Cardiac: Regular rate and rhythm, no murmurs, normal S1, normal S2 Pulm: Clear to auscultation bilaterally. No wheezes, rhonchi, rales Abd: Nondistended, nontender to palpation, normal bowel sounds Ext: No edema bilateral lower extremities. 1/4 dorsalis pedis and posterior tibial pulses in bilateral lower extremities dressing was in place and did have some serosanguineous drainage on the outside of it. Labs: See below Imaging: No new imaging has been performed Assessment/plan: 75-year-old male who presented the hospital with chronic foot ulcer which appears to have become osteomyelitis of the fifth metatarsal based on x-ray findings. 1. Right fifth metatarsal osteomyelitis. Patient is on vancomycin and cefazolin. I spoke with pharmacy and they spoke with the lab stating that there is another bacteria growing on the cultures. Patient initially grew out Proteus but there is can to be a staph aureus that will be growing which they would not have sensitivities with or not this is MRSA or MSSA until Wednesday. Patient will need to be hospitalized until least Wednesday because of this. We will continue to monitor the patient. 2. Peripheral vascular disease. Patient had angioplasty performed by Dr. Meade in 2019. Arterial ultrasound has been ordered. 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 Continue with physical therapy. 4. Chronic kidney disease stage II. Creatinine within normal range today. 5. Osteopenia. Patient will need follow-up with PCP for osteoporosis. 6. Gout. Continue allopurinol. 7. Essential hypertension. Continue home medications. DVT Prophylaxis: Heparin Disposition: Pending culture results for definitive treatment. VS,Fishbone, I+O VS, Fishbone, I+O Vital Signs Date Time Temp Pulse Resp B/P (MAP) Pulse Ox O2 Delivery O2 Flow Rate FiO2 12/23/20 08:39 133/80 12/23/20 08:39 75 12/23/20 06:00 97.5 18 99 Room Air I&O- Last 24 Hours up to 6 AM 12/23/20 06:00 Intake Total 1320 ml Output Total 800 ml Balance 520 ml RODY HOROWITZ DO Dec 23, 2020 12:57
[2020-12-23 14:00] VITALS: BP 131/76
--- NOTE | 2020-12-23 14:54 | REP ---
INDICATION: diminished peripheral pulses. Status post right popliteal artery angioplasty, right anterior tibial artery angioplasty, right tibial-peroneal trunk angioplasty, right posterior tibial artery angioplasty. COMPARISON: None. TECHNIQUE: Bilateral lower extremity arterial Doppler ultrasound. FINDINGS: Ankle brachial indices are somewhat decreased 0.77 on the right and 0.8 on the left. Moderate to severe plaquing is observed. The right distal posterior tibial artery is occluded with revascularization. The left posterior tibial artery is occluded. Biphasic arterial Doppler waveforms are noted throughout the left lower extremity. Monophasic waveforms are noted in the right proximal anterior tibial artery and in the right distal anterior tibial and distal posterior tibial arteries. Velocity chart right lower extremity arteries: Right BEHAVIORIST PSV 81 cm/S Profundal 75 Proximal SFA 65 Mid SFA 56 Distal SFA 57 Popliteal 83 Proximal ALISA 35 Tibial-peroneal trunk 90 Proximal PLANT UTILITIES ENGINEER 41 Distal PLANT UTILITIES ENGINEER 45 Distal ALISA 95 Left lower extremity arterial Doppler velocity chart: Left BEHAVIORIST PSV 84 cm/S Profundal 62 Proximal SFA 59 Mid SFA 56 Distal SFA 32 Popliteal 32 Proximal ALISA 61 Tibial-peroneal trunk 36 Proximal PLANT UTILITIES ENGINEER 36 Distal PLANT UTILITIES ENGINEER occluded Distal ALISA 32 IMPRESSION: Occlusions of the distal posterior tibial arteries are noted bilaterally with reconstitution on the right. Moderate atherosclerotic plaquing. <Electronically signed by Live Aranda > 12/23/20 [id number]
--- NOTE | 2020-12-23 16:14 | IPN ---
PROGRESS NOTE DATE: 12/23/2020 SUBJECTIVE: Patient seen and examined. Denies new complaints. States his foot is feeling better. VITAL SIGNS: He has remained afebrile. LABORATORY DATA: White blood cell count most recently 7.4. PHYSICAL EXAMINATION: LOWER EXTREMITY EXAMINATION: Erythema and edema improved. Wound base is largely granular without further necrotic tissue. ASSESSMENT: This is a 75-year-old diabetic male with right foot ulceration and osteomyelitis. PLAN: Continue present wound care, dressings. Patient likely to be discharged once final wound culture is available on oral medications. He should have followup with Dr. Bethea at the wound care center and myself.
[2020-12-23] MEDS: ATORVASTATIN 20 MG TAB PO SCH (21:43)
[2020-12-23] MEDS: SENOKOT S TAB PO SCH (21:44)
[2020-12-23 22:00] VITALS: BP 134/73
[2020-12-24] MEDS: VANCOMYCIN HCL 1,000 MG, VIAL MATE ADAPTER 1 EACH in NS 250 ML IV SCH ×2 (04:01→16:27)
[2020-12-24] MEDS: ceFAZolin SOD 1 GM in D5W MINI-BAG PLUS 50 ML IV SCH ×2 (05:51→15:00)
[2020-12-24] MEDS: HEPARIN SOD (PORCINE) 5000UNITS/ML 1ML VIAL/SYRINGE SC SCH ×3 (05:52→22:10)
[2020-12-24 06:00] VITALS: BP 156/83
[2020-12-24 07:16] LABS: BLOOD UREA NITROGEN 14 MG/DL (7-18); CALCIUM LEVEL 8.9 MG/DL (8.8-10.2); CARBON DIOXIDE LEVEL 25 MEQ/L (21-32); CHLORIDE LEVEL 109 MEQ/L (98-107); CREATININE FOR GFR 0.91 MG/DL (0.70-1.30); GLOMERULAR FILTRATION RATE > 60.0 (>42); GLUCOSE, FASTING 97 MG/DL (70-100); POTASSIUM SERUM 5.3 MEQ/L (3.5-5.1); SODIUM LEVEL 138 MEQ/L (136-145)
[2020-12-24] MEDS: allopurinoL 300 MG TAB PO SCH (08:39)
[2020-12-24] MEDS: COLCHICINE 0.6 MG TABLET PO SCH (08:39)
[2020-12-24] MEDS: ASPIRIN 81MG ENTERIC TABLET PO SCH (08:39)
[2020-12-24] MEDS: SPIRONOLACTONE 25 MG TAB PO SCH ×2 (08:40→22:09)
[2020-12-24] MEDS: VALSARTAN 80 MG TAB (DIOVAN) PO SCH ×2 (08:40→08:44)
[2020-12-24] MEDS: METOPROLOL TART 25 MG TABLET PO SCH ×2 (08:43→22:09)
--- NOTE | 2020-12-24 13:46 | IPNPDOC ---
Text Note Date of Service The patient was seen on 12/24/20. NOTE Subjective: Patient is a 75-year-old male who presented to the emergency depa rtment after his senior trial attorney told him that is chronic ulcer on his right foot was now draining foul-smelling fluid. Patient follows with Dr. Bethea for wound care. Podiatry saw the patient and debrided the wound at bedside. Patient is feeling well denies any other complaints today. Review of systems: General: Patient denies fevers HEENT: Patient denies headaches Cardiovascular: Patient denies chest pain Respiratory: Patient denies shortness of breath, cough GI: Patient denies abdominal pain, nausea, vomiting, diarrhea : Patient denies increased frequency or pain with urination Extremities: Patient denies pain from his ulcer Neurological: Patient denies numbness or tingling in legs Physical exam: Vitals: See below General: Alert and oriented male patient was sitting in the bedside chair and walked in the room. Patient did not appear to be in any acute distress. HEENT: Normocephalic, atraumatic, moist mucous membranes. Neck: No lymphadenopathy or thyromegaly Cardiac: Regular rate and rhythm, no murmurs, normal S1, normal S2 Pulm: Clear to auscultation bilaterally. No wheezes, rhonchi, rales Abd: Nondistended, nontender to palpation, normal bowel sounds Ext: No edema bilateral lower extremities. 1/4 dorsalis pedis and posterior tibial pulses in bilateral lower extremity. Dressing was in place did have some serosanguineous drainage on the outside of it. Labs: See below Imaging: A bilateral lower extremity arterial ultrasound was performed on 12/23/2020. And was reported to show occlusions of the distal posterior tibial arteries are noted bilaterally with reconstitution on the right. Moderate arthrosclerosis atherosclerotic plaquing Assessment/plan: 75-year-old male presented to hospital with chronic foot ulcer which appears to have become osteomyelitis of the fifth metatarsal based on x-ray findings 1. Right fifth metatarsal osteomyelitis. Patient is on vancomycin and cefazolin. Patient's wound culture is positive for Proteus and Staph aureus. Sensitivities will not be available till tomorrow for staph aureus so we are unsure if this is MRSA versus MSSA. Patient will need to be hospitalized until then to the duration of the antibiotics can be decided. Infectious disease is on consult. 2. Peripheral vascular disease. Arterial ultrasound shows moderate atherosclerotic plaquing with blockages in the posterior tibial arteries. Patient will need outpatient follow-up. 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 Continue with physical therapy. Patient does have home care and when the patient is ready for discharge, he can remain with the current level of services that he has. 4. Chronic kidney disease stage II. Creatinine within normal range and we will continue to monitor. 5. Osteopenia. Will need outpatient work-up for osteoporosis. 6. Gout. Continue allopurinol. 7. Essential hypertension. Patient had a low blood pressure reading this morning so his blood pressure medications were held. We will continue to monitor. DVT Prophylaxis: Heparin Disposition: Pending culture results for definitive treatment. VS,Storme, I+O VS, Ogbone, I+O Laboratory Tests 12/24/20 06:28 12/24/20 12:06 Vital Signs Date Time Temp Pulse Resp B/P (MAP) Pulse Ox O2 Delivery O2 Flow Rate FiO2 12/24/20 08:43 86 94/61 12/24/20 06:00 97.6 16 99 Room Air I&O- Last 24 Hours up to 6 AM 12/24/20 06:00 Intake Total 1860 ml Output Total 125 ml Balance 1735 ml RODY HOROWITZ DO Dec 24, 2020 13:46
[2020-12-24 14:00] VITALS: BP 119/68
[2020-12-24] MEDS ORDERED: CEPHALEXIN 250MG CAPSULE PO SCH (21:00)
[2020-12-24 22:00] VITALS: BP 139/89
[2020-12-24] MEDS: SENOKOT S TAB PO SCH (22:09)
[2020-12-24] MEDS: CEPHALEXIN 500 MG CAP PO SCH (22:09)
[2020-12-24] MEDS: ATORVASTATIN 20 MG TAB PO SCH (22:09)
[2020-12-25] MEDS: VANCOMYCIN HCL 1,000 MG, VIAL MATE ADAPTER 1 EACH in NS 250 ML IV SCH (04:08)
[2020-12-25] MEDS: HEPARIN SOD (PORCINE) 5000UNITS/ML 1ML VIAL/SYRINGE SC SCH (05:31)
[2020-12-25 06:00] VITALS: BP 150/95
[2020-12-25 06:56] LABS: HEMOGLOBIN A1c 5.7 %
--- NOTE | 2020-12-25 09:52 | CR ---
CONSULTATION DATE: 12/20/2020 REASON FOR CONSULTATION: I was asked to consult by Dr. Monae for evaluation of home antibiotics for osteomyelitis of the right foot. HISTORY OF PRESENT ILLNESS: Mr. Cid is a pleasant, 75-year-old gentleman who was brought in by his caregiver after she had noticed that his ulceration on his right foot had foul drainage. The patient stated the wound had opened about a week prior and he had developed some foul drainage. He had no fever or chills. He had minimal pain that radiated under his leg. He denies being diabetic but he does complain of decreased sensation in his legs. He has no fever or chills, no nausea, vomiting or diarrhea. The patient was seen in consultation with Dr. Moncada who did a debridement at the bedside and cultures were sent, were positive for Proteus and Staph aureus. Susceptibilities are still pending. The patient is on IV Kefzol and vancomycin. PAST MEDICAL HISTORY: 1. Essential hypertension, 2. 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 He uses a walker. 3. Chronic kidney disease. 4. Osteopenia. 5. Gout. 6. Dyslipidemia. 7. Osteoarthritis. 8. Prostate cancer. 9. Status post radical prostatectomy in 2017. 10. GI bleed. 11. DVT. 12. Vitamin B12 and vitamin D deficiency. PAST SURGICAL HISTORY: Angioplasty in 2004. Right meniscus surgery in 2001. Left arm surgery in 2014. Colon polypectomy in 2010. Rheumatoid arthritis. SOCIAL HISTORY: He is a . He is , former smoker. He has a caregiver four hours a day. 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 FAMILY HISTORY: Both his brothers from age while his twin sister from uterine and colon cancer. ALLERGIES: Shellfish and iodine. MEDICATIONS: Vancomycin 1 gm IV q.12 hours, Kefzol 1 gm IV q.8 hours, Aldactone 25 mg p.o. b.i.d., Senokot two tablets p.o. q.h.s., metoprolol 25 mg p.o. b.i.d., atorvastatin 10 mg p.o. q.h.s., Milk of Magnesia as needed, aspirin 81 mg daily, colchicine 0.6 mg p.o. daily, Valsartan 100 mg p.o. daily. REVIEW OF SYSTEMS: He feels good. He has no nausea, vomiting or diarrhea, no abdominal pain. He had some left-sided weakness as well as some difficulty with grasp with both hands due to arthritis. He had some slurred speech. Walks with a walker. LABORATORY DATA: White count is 7.4, hemoglobin 12.6, hematocrit 40, platelets 295, ESR 44. Sodium 138, potassium 5.3, chloride 109, bicarb 25, BUN 14, creatinine 0.91, glucose 97, calcium 8.9. CRP on admission was 12.2. Wound cultures were positive for Proteus mirabilis, Staph aureus. Respiratory panel was negative. Blood cultures, two sets were negative. Foot x-ray showed degenerative changes at the navicular and cuboid bone, moderate spurs, ulceration of the fifth metatarsal with erosion and fracturing of the fifth metatarsal bone compared to 07/2019, consistent with osteomyelitis, ankylosis or fusion of the interphalangeal joint of the big toe. Arterial Doppler studies: Moderate to severe plaquing, decreased ankle-brachial indices to 0.77 on the right and 0.8 on the left. Right distal posterior tibial artery is occluded with revascularization. The left posterior tibial artery is occluded. PHYSICAL EXAMINATION: General appearance: Healthy looking black man in no acute distress. Vital signs: Temperature is 97.2, pulse 90, respirations 17, blood pressure 119/68. O2 sat 96% on room air. Heart: Normal S1, S2, no murmurs, rubs or gallops. Lungs: Clear. No wheezes, rales or rhonchi. Abdomen: Soft, nontender, no hepatosplenomegaly. Back: No CVA tenderness. Extremities: No clubbing, cyanosis or edema. Dorsalis pedis pulses and posterior tibialis could not be felt. Ulceration on the fifth metatarsal bone, middle of the foot laterally measuring 3.4 x 3.6 cm x 0.8 cm depth. There is a callus on the top of the big toe, dry, measuring about 2 x 1 cm without surrounding cellulitis or erythema. IMPRESSION: 1. Acute osteomyelitis of the right fifth metatarsal with cultures positive for Proteus and Staph aureus. MRSA screen was negative. The patient remains on IV Kefzol and IV vancomycin to cover for both pathogens. 2. Essential hypertension. His blood pressure today was on the low side at 94/61. Some of his medications have been held. 3. History of gout and rheumatoid arthritis. 4. Callus of the right foot has been a chronic problem but the patient has not been seen by Dr. Bethea since August of 2019. PLAN: Discontinue IV Cefazolin, switch to Keflex. We will treat him with high dose Keflex for osteomyelitis at 1 gm p.o. t.i.d. If it is MSSA, the patient will not need any additional antibiotics. If culture is MRSA, would add Bactrim double strength one p.o. b.i.d. for MRSA coverage. I would send this patient with a prescription for 30 days for osteomyelitis. He will need to follow up in my office in two weeks. Repeat CRP in the morning.
[2020-12-25 10:01] VITALS: BP 122/78
[2020-12-25] MEDS: METOPROLOL TART 25 MG TABLET PO SCH (10:01)
[2020-12-25] MEDS: ASPIRIN 81MG ENTERIC TABLET PO SCH (10:02)
[2020-12-25] MEDS: allopurinoL 300 MG TAB PO SCH (10:02)
[2020-12-25] MEDS: SPIRONOLACTONE 25 MG TAB PO SCH (10:02)
[2020-12-25] MEDS: CEPHALEXIN 500 MG CAP PO SCH (10:02)
[2020-12-25] MEDS: VALSARTAN 80 MG TAB (DIOVAN) PO SCH (10:02)
[2020-12-25] MEDS: COLCHICINE 0.6 MG TABLET PO SCH (10:28)
[2020-12-25] MEDS ORDERED: DOXY-350 PO (12:08)
[2020-12-25] MEDS ORDERED: CEPH500C PO ×2 (12:08→12:19)
--- NOTE | 2020-12-26 16:49 | DS.PDOC ---
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 HISTORY OF PRESENT ILLNESS:: Mr. iCd is a pleasant, 75-year-old gentleman who was brought in by his caregiver after she had noticed that his ulceration on his right foot had foul drainage. The patient stated the wound had opened about a week prior and he had developed some foul drainage. He had no fever or chills. He had minimal pain that radiated under his leg. He denies being diabetic but he does complain of decreased sensation in his legs. He has no fever or chills, no nausea, vomiting or diarrhea. The patient was seen in consultation with Dr. Moncada who did a debridement at the bedside and cultures were sent, were positive for Proteus and Staph aureus. The patient was on IV Kefzol and vancomycin HOSPITAL COURSE: During the hospital stay the following issues addressed 1. Acute osteomyelitis of the right fifth metatarsal with cultures positive for Proteus and Staph aureus. MRSA screen was negative. The patient received therapy with IV Kefzol and IV vancomycin to cover for both pathogens. 2. Essential hypertension. His blood pressure today was on the low side at 94/61. Some of his medications have been held. 3. History of gout and rheumatoid arthritis. 4. Callus of the right foot has been a chronic problem but the patient has not been seen by Dr. Bethea since August of 2019. DISCHARGE MEDICATIONS: Please see below. ALLERGIES: Please see below. PHYSICAL EXAMINATION ON DISCHARGE: VITAL SIGNS: Please see below. General: Alert and oriented male patient was sitting in the bedside chair and walked in the room. Patient did not appear to be in any acute distress. HEENT: Normocephalic, atraumatic, moist mucous membranes. Neck: No lymphadenopathy or thyromegaly Cardiac: Regular rate and rhythm, no murmurs, normal S1, normal S2 Pulm: Clear to auscultation bilaterally. No wheezes, rhonchi, rales Abd: Nondistended, nontender to palpation, normal bowel sounds Ext: No edema bilateral lower extremities. 1/4 dorsalis pedis and posterior tibial pulses in bilateral lower extremity. Dressing was in place did have some serosanguineous drainage on the outside LABORATORY DATA: Please see below. IMAGING:PROCEDURE INFORMATION: Exam: XR Right Foot Exam date and time: 12/21/2020 1:19 AM Age: 75 years old Clinical indication: Other: Ulcer lateral aspect, R/O osteomyelitis TECHNIQUE: Imaging protocol: XR Right foot. Views: 3 or more views. COMPARISON: CR Foot, complete 07/17/2019 1:57 PM FINDINGS: Bones/joints: Fusion of the interphalangeal joint of the great toe. Early degenerative change the 1st metatarsophalangeal joint. Osteopenia. Mild degenerative change at several tarsometatarsal joints, particularly the 1st and 2nd and to a lesser degree the 3rd. Ulceration adjacent to the proximal 5th metatarsal with underlying erosion and probable distracted fracture. Degenerative changes noted between the navicular and cuneiforms. There is moderate degenerative spurring over the dorsum of the tarsus. Mild inferior calcaneal spurring. Soft tissues: Ulceration adjacent to the proximal 5th metatarsal. IMPRESSION: 1. Ulceration adjacent to the proximal 5th metatarsal with interval erosion and fracturing of the proximal 5th metatarsal since 07/17/2019 consistent with osteomyelitis. 2. Scattered areas of degenerative/arthritic changes. 3. Ankylosis or fusion at the interphalangeal joint of the great toe. Electronically signed by: Roshan Francois On 12/21/2020 03:23:41 AM DD: ROSHAN FRANCOIS MD 12/21/20 0119 DT: JOHN 12/21/20 0323 INDICATION: diminished peripheral pulses. Status post right popliteal artery angioplasty, right anterior tibial artery angioplasty, right tibial-peroneal trunk angioplasty, right posterior tibial artery angioplasty. COMPARISON: None. TECHNIQUE: Bilateral lower extremity arterial Doppler ultrasound. FINDINGS: Ankle brachial indices are somewhat decreased 0.77 on the right and 0.8 on the left. Moderate to severe plaquing is observed. The right distal posterior tibial artery is occluded with revascularization. The left posterior tibial artery is occluded. Biphasic arterial Doppler waveforms are noted throughout the left lower extremity. Monophasic waveforms are noted in the right proximal anterior tibial artery and in the right distal anterior tibial and distal posterior tibial arteries. Velocity chart right lower extremity arteries: Right SALES OFFICER PSV 81 cm/S Profundal 75 Proximal SFA 65 Mid SFA 56 Distal SFA 57 Popliteal 83 Proximal ALISA 35 Tibial-peroneal trunk 90 Proximal CARPENTER'S ASSISTANT 41 Distal CARPENTER'S ASSISTANT 45 Distal ALISA 95 Left lower extremity arterial Doppler velocity chart: Left SALES OFFICER PSV 84 cm/S Profundal 62 Proximal SFA 59 Mid SFA 56 Distal SFA 32 Popliteal 32 Proximal ALISA 61 Tibial-peroneal trunk 36 Proximal CARPENTER'S ASSISTANT 36 Distal CARPENTER'S ASSISTANT occluded Distal ALISA 32 IMPRESSION: Occlusions of the distal posterior tibial arteries are noted bilaterally with reconstitution on the right. Moderate atherosclerotic plaquing. <Electronically signed by Live Aranda > 12/23/20 1450 DD: Jay Aranda MD 12/23/20 1444 DT: RONALD 12/23/200 DS: LOC 12/23/20 1444 12/23/20 1444 [~ rep ct labl] PROGNOSIS: Fair ACTIVITY: [As tolerated]. DIET: Diabetes DISPOSITION: 01 Home, Self-Care. ITEMS TO FOLLOWUP ON ON OUTPATIENT: Follow-up with mop machine operator, hr specialist and a GI specialist, vascular surgeon DISCHARGE CONDITION: [Stable]. TIME SPENT ON DISCHARGE: 40 minutes. Vital Signs/I&Os Vital Signs Date Time Temp Pulse Resp B/P (MAP) Pulse Ox O2 Delivery O2 Flow Rate FiO2 12/25/20 10:01 91 122/78 12/25/20 06:00 97.1 18 100 Room Air I&O- Last 24 Hours up to 6 AM 12/26/20 06:00 Intake Total 240 ml Output Total 175 ml Balance 65 ml Microbiology Microbiology 12/21/20 Gram Stain - Final, Complete 12/21/20 Wound Culture - Final, Complete Proteus Mirabilis Staphylococcus Aureus 12/21/20 Respiratory Virus Panel (PCR) ([facility]) - Final, Complete 12/20/20 Blood Culture - Final, Complete NO GROWTH AFTER 5 DAYS 12/20/20 Blood Culture - Final, Complete NO GROWTH AFTER 5 DAYS Discharge Medications Scheduled Aspirin (Aspirin EC) 81 Mg Tab, 81 MG PO DAILY, (Reported) Atorvastatin Calcium (Atorvastatin Calcium) 20 Mg Tab, 10 MG PO QHS, (Reported) Cephalexin (Cephalexin) 500 Mg Capsule, 1,000 MG PO TID Colchicine (Colchicine) 0.6 Mg Tab, 0.6 MG PO DAILY, (Reported) Ergocalciferol (Vitamin D2) (Vitamin D2) 50,000 Units Cap, 50,000 UNITS PO QMONTH, (Reported) Lanolin Alcohol/Mo/W.pet/[place] (Eucerin Creme) 454 Gm Cream..g., 1 APPLIC TP DAILY, (Reported) TO FEET Metoprolol Tartrate (Metoprolol Tartrate) 25 Mg Tab, 25 MG PO BID, (Reported) Sennosides/Docusate Sodium (Senna Plus Tablet) 1 Tab Tab, 2 TAB PO QHS, (Reported) Spironolactone (Spironolactone) 25 Mg Tab, 25 MG PO BID, (Reported) Valsartan (Diovan) 160 Mg Tab, 160 MG PO DAILY, (Reported) allopurinoL (allopurinoL) 300 Mg Tablet, 300 MG PO DAILY, (Reported) Scheduled PRN Acetaminophen (Acetaminophen) 325 Mg Tab, 650 MG PO Q4H PRN for MILD PAIN OR FEVER, (Reported) Sennosides (Senna Laxative) 8.6 Mg Tab, 8.6 MG PO BID PRN for CONSTIPATION, (Reported) Allergies Coded Allergies: shellfish derived (Verified Allergy, Severe, HIVES, DIFFICULTY BREATHING, 09/13/18) iodine (Verified Allergy, Unknown, 09/13/18) BLAS YEBOAH DO Dec 26, 2020 16:49
== END 2020-12-25 15:53 | disposition home health service (06) | DRG 504 ==
LOC: M ED 19:19 → M ED INP 19:20 → M MSPAV 12-21 03:40
PROVIDERS: ADMIT Internal Medicine; ATTEND Internal Medicine
PROC: 0QBL0ZZ Excision of Right Tarsal, Open Approach (ICD-10-PCS; principal; 2020-12-21)
DX: M86.171 Other acute osteomyelitis, right ankle and foot (principal); L97.516 Non-pressure chronic ulcer of other part of right foot with bone involvement without evidence of necrosis; I12.9 Hypertensive chronic kidney disease with stage 1 through stage 4 chronic kidney disease, or unspecified chronic kidney disease; Z86.73 Personal history of transient ischemic attack (TIA), and cerebral infarction without residual deficits; N18.2 Chronic kidney disease, stage 2 (mild); M85.88 Other specified disorders of bone density and structure, other site; M10.9 Gout, unspecified; E78.5 Hyperlipidemia, unspecified; M19.90 Unspecified osteoarthritis, unspecified site; Z87.891 Personal history of nicotine dependence; Z79.82 Long term (current) use of aspirin; Z79.899 Other long term (current) drug therapy; Z88.3 Allergy status to other anti-infective agents; Z91.013 Allergy to seafood; Z20.822 Contact with and (suspected) exposure to COVID-19; I73.9 Peripheral vascular disease, unspecified

== ENCOUNTER → 2020-12-26 | Outpatient (REF) | payer MEDICARE, OTHER ==
[~2020-12-26] MED LIST changes: +ALLO300T2 PO; +CEPH500C PO; +DOXY-350 PO; +ERGO500029 PO; +EUCECRE8 TP
[2020-12-26 16:41] LABS: HEMOGLOBIN 13.2 g/dl (13.5-17.5); MEAN CORPUSCULAR HEMOGLOBIN 25.9 pg (27.0-33.0); MEAN CORPUSCULAR HGB CONC 30.7 g/dl (32.0-36.5); MEAN CORPUSCULAR VOLUME 84.3 fl (80.0-96.0); PLATELET COUNT, AUTOMATED 230 10^3/uL (150-450); WHITE BLOOD COUNT 6.9 10^3/uL (4.0-10.0)
[2020-12-26 17:10] LABS: ALBUMIN 3.4 GM/DL (3.2-5.2); ALT/SGPT 13 U/L (12-78); BILIRUBIN,TOTAL 0.4 MG/DL (0.2-1.0); BLOOD UREA NITROGEN 15 MG/DL (7-18); CALCIUM LEVEL 9.6 MG/DL (8.8-10.2); CARBON DIOXIDE LEVEL 28 MEQ/L (21-32); CHLORIDE LEVEL 108 MEQ/L (98-107); CREATININE FOR GFR 1.06 MG/DL (0.70-1.30); GLOMERULAR FILTRATION RATE > 60.0 (>42); GLUCOSE, FASTING 92 MG/DL (70-100); POTASSIUM SERUM 4.5 MEQ/L (3.5-5.1); SODIUM LEVEL 140 MEQ/L (136-145); TOTAL PROTEIN 7.3 GM/DL (6.4-8.2)
[2020-12-26 17:15] LABS: HEMOGLOBIN A1c 5.8 %
== END ==
LOC: M LAB REF 16:05
PROVIDERS: ATTEND Surgery
DX: L97.414 Non-pressure chronic ulcer of right heel and midfoot with necrosis of bone (principal); Z79.899 Other long term (current) drug therapy
CPT/HCPCS: 11044; 80053; 83036; 85027; 88304; 88311; G0463

== ENCOUNTER → 2021-01-14 | Outpatient (POV) | payer MEDICARE, OTHER ==
[~2021-01-14] VITALS: Ht 182.9 cm; Wt 109.0 kg
[2021-01-14 09:50] VITALS: BP 99/58
--- NOTE | 2021-01-15 10:50 | IRCOV ---
[facility] IR Consult Office Visit IR Consult Office Visit DATE: Jan 14, 2021 REASON FOR CONSULTATION/CHIEF COMPLAINT: Nonhealing right lower extremity wound. HISTORY OF PRESENT ILLNESS: 75-year-old male, nondiabetic, nonsmoker, with prior history of stroke, presents for evaluation of new nonhealing right lower extremity ulcer. Patient is known to me and underwent angiography and intervention with me in September 2019. At that time, the intervention was performed for a right foot ulcer. The ulcer then healed. At angiography in September 2019, he had a focal stenosis of the mid popliteal artery which responded well to 6 mm [place] angioplasty. He also had multifocal stenosis and occlusions in the anterior tibial artery, tibioperoneal trunk, peroneal artery and proximal posterior tibial artery, which responded to 3 mm angioplasty balloon. The distal posterior tibial artery was occluded and could not be recanalized. Patient's peroneal artery supply reconstituted his distal posterior tibial artery with contribution to the calcaneal plantar branches. Patient remains on aspirin but no longer taking Plavix. Patient reports the ulcer healed after his angioplasty in September 2019 and he had no further pain in the right leg. Patient reports over the last couple of months, he developed a painful ulceration along the lateral aspect of his right foot, which then became an abscess. He was recently admitted to the hospital for this and the abscess and wound were debrided by Dr. Moncada. Patient denies intermittent claudication or rest pain. Patient denies chest pain, shortness of breath, orthopnea or paroxysmal nocturnal dyspnea. ALLERGIES: Please see below. HOME MEDICATIONS: Please see below. PAST MEDICAL HISTORY: Kidney disease Gout Hyperlipidemia Arthritis Hypertension Syncope Stroke 2014 Prostate cancer PAST SURGICAL HISTORY: Prostate biopsy Colonoscopy Left arm surgery 2015 Radical prostatectomy 2017 Foot debridement 2020 FAMILY HISTORY: Noncontributory. SOCIAL HISTORY: Nonsmoker. Denies alcohol or drugs. REVIEW OF SYSTEMS: Otherwise negative. PHYSICAL EXAMINATION: VITAL SIGNS: Please see below. GENERAL APPEARANCE: Appears well. Comfortable at rest. HEENT: No scleral icterus. RESPIRATORY: Normal breathing at rest. CARDIOVASCULAR: Normal rate. ABDOMEN: Non-distended. EXTREMITIES: Left lower extremity: No edema. Skin warm to touch. Shiny hairless skin. Femoral pulses 1+ popliteal pulse 1+ DP PT negative. sensation; patchy loss in the foot. Motor 4 out of 5. Right lower extremity: Mild edema of the foot. No edema at the ankle. Tendon ulceration along the lateral aspect of the midfoot. Leg color unremarkable. Warm to touch. Femoral pulses 1+ popliteal pulses 1+ DP PT negative. patchy sensory loss over the foot. Motor 4 out of 5. NEUROLOGICAL: Alert and oriented. PSYCHIATRIC: Appropriate to circumstance. LABORATORY DATA: Please see below. Imaging: I personally reviewed the right lower extremity arterial ultrasound performed 12/23/2020. There is no indication of recurrence of the mid popliteal stenosis. The anterior tibial artery appears irregular and it may be that there is recurrent stenosis in the anterior tibial artery or tibioperoneal trunk. The distal posterior tibial artery remains occluded. ASSESSMENT/PLAN: 75-year-old male with new nonhealing right lower extremity ulcer with known peripheral vascular disease. Now over one year since his last angiogram and intervention, I agree patient would benefit from angiogram and intervention if appropriate. We discussed the risks and benefits of the procedure and patient is willing to proceed. We'll schedule the patient for right lower extremity angiography and intervention. Best approached with antegrade ipsilateral access for attempt at further distal right posterior tibial artery recanalization. I spent 30 minutes reviewing patient's records, imaging and in consultation with the patient. Thank you for this referral. Cc Dr. Bethea Cc Dr. Moncada Allergies Coded Allergies: shellfish derived (Verified Allergy, Severe, HIVES, DIFFICULTY BREATHING, 09/13/18) iodine (Verified Allergy, Unknown, 09/13/18) Home Medications Scheduled Aspirin (Aspirin EC), 81 MG PO DAILY, (Reported) Atorvastatin Calcium (Atorvastatin Calcium), 10 MG PO QHS, (Reported) Cephalexin (Cephalexin), 1,000 MG PO TID Colchicine (Colchicine), 0.6 MG PO DAILY, (Reported) Ergocalciferol (Vitamin D2) (Vitamin D2), 50,000 UNITS PO QMONTH, (Reported) Lanolin Alcohol/Mo/W.pet/[place] (Eucerin Creme), 1 APPLIC TP DAILY, (Reported) Metoprolol Tartrate (Metoprolol Tartrate), 25 MG PO BID, (Reported) Sennosides/Docusate Sodium (Senna Plus Tablet), 2 TAB PO QHS, (Reported) Spironolactone (Spironolactone), 25 MG PO BID, (Reported) Valsartan (Diovan), 160 MG PO DAILY, (Reported) allopurinoL (allopurinoL), 300 MG PO DAILY, (Reported) Scheduled PRN Acetaminophen (Acetaminophen), 650 MG PO Q4H PRN for MILD PAIN OR FEVER, (Reported) Sennosides (Senna Laxative), 8.6 MG PO BID PRN for CONSTIPATION, (Reported) VS, I&O, 24H, Fishbone Vital Signs/I&O Vital Signs Date Time Temp Pulse Resp B/P (MAP) Pulse Ox O2 Delivery O2 Flow Rate FiO2 01/14/21 09:50 97.4 80 18 99/58 (72) 95 Room Air CLEMENTINA BLOOM MD Jan 15, 2021 10:50
== END ==
LOC: M IRPOV 09:36
PROVIDERS: ATTEND Radiology Diagnostic Radiology
DX: I70.235 Atherosclerosis of native arteries of right leg with ulceration of other part of foot (principal); L97.519 Non-pressure chronic ulcer of other part of right foot with unspecified severity; E78.5 Hyperlipidemia, unspecified; I10 Essential (primary) hypertension; M10.9 Gout, unspecified; M12.9 Arthropathy, unspecified; Z79.82 Long term (current) use of aspirin; Z79.899 Other long term (current) drug therapy; Z85.46 Personal history of malignant neoplasm of prostate; Z86.73 Personal history of transient ischemic attack (TIA), and cerebral infarction without residual deficits; Z91.013 Allergy to seafood; Z91.048 Other nonmedicinal substance allergy status

== ENCOUNTER → 2021-01-15 | Outpatient (REF) | payer MEDICARE, OTHER ==
[~2021-01-15] MED LIST changes: +EUCECRE8 TOP; -EUCECRE8 TP
== END ==
LOC: M LAB REF 16:55
PROVIDERS: ATTEND Surgery
DX: L97.414 Non-pressure chronic ulcer of right heel and midfoot with necrosis of bone (principal); Z79.899 Other long term (current) drug therapy

== ENCOUNTER 2021-01-24 10:09 | Emergency (ER) | payer MEDICARE, OTHER ==
[~2021-01-24] VITALS: Ht 182.9 cm; Wt 109.1 kg
[~2021-01-24 10:09] MED LIST changes: -ISOVUE-300 61% 50ML VIAL As Ordered ONE; -LIDOCAINE 1% MDV 20ML VIAL As Ordered ONE; -MIDAZOLAM INJ 2MG/2ML VIAL (J2250 PER 1MG) As Ordered ONE; -diphenhydrAMINE 50MG/ML VIAL (J1200) As Ordered ONE; -fentaNYL 100 MCG/2 ML INJECTION (J3010) As Ordered ONE
[2021-01-24 10:34] LABS: BASO % 0.6 % (0.0-1.0); EOS # 0.1 10^3/uL (0.0-0.5); EOS % 1.9 % (0.0-3.0); HEMATOCRIT 42.1 % (42.0-52.0); HEMOGLOBIN 13.4 g/dl (13.5-17.5); LYMPH # 2.2 10^3/uL (1.5-5.0); LYMPH % 31.9 % (24.0-44.0); MEAN CORPUSCULAR HEMOGLOBIN 26.3 pg (27.0-33.0); MEAN CORPUSCULAR HGB CONC 31.8 g/dl (32.0-36.5); MEAN CORPUSCULAR VOLUME 82.5 fl (80.0-96.0); MONO # 0.6 10^3/uL (0.0-0.8); MONO % 7.8 % (2.0-8.0); NEUTROPHILS % 57.4 % (36.0-66.0); PLATELET COUNT, AUTOMATED 209 10^3/uL (150-450)
[2021-01-24 10:44] LABS: INR 1.06; PROTHROMBIN TIME 14.2 SECONDS (12.7-14.5)
[2021-01-24 10:45] LABS: PARTIAL THROMBOPLASTIN TIME 36.8 SECONDS (25.9-37.0)
[2021-01-24 11:09] LABS: ALBUMIN 3.1 GM/DL (3.2-5.2); ALT/SGPT 11 U/L (12-78); BILIRUBIN,DIRECT 0.1 MG/DL (0.0-0.2); BILIRUBIN,TOTAL 0.4 MG/DL (0.2-1.0); BLOOD UREA NITROGEN 15 MG/DL (7-18); CALCIUM LEVEL 9.3 MG/DL (8.8-10.2); CARBON DIOXIDE LEVEL 25 MEQ/L (21-32); CHLORIDE LEVEL 108 MEQ/L (98-107); CK-MB VALUE MASS < 1.0 NG/ML (<3.6); CPK CREATINE PHOSPHOKINASE 62 U/L (39-308); CREATININE FOR GFR 1.28 MG/DL (0.70-1.30); FREE T4 1.26 NG/DL (0.76-1.46); GLOMERULAR FILTRATION RATE > 60.0 (>42); GLUCOSE, FASTING 114 MG/DL (70-100); LIPASE 89 U/L (73-393); MAGNESIUM LEVEL 2.2 MG/DL (1.8-2.4); MB/CK RELATIVE INDEX 1.61 (< OR =4); NT-PRO BNP 265 PG/ML (<125); PHOSPHORUS LEVEL 2.9 MG/DL (2.5-4.9); POTASSIUM SERUM 4.5 MEQ/L (3.5-5.1); SODIUM LEVEL 139 MEQ/L (136-145); TOTAL PROTEIN 7.2 GM/DL (6.4-8.2); TROPONIN I < 0.02 NG/ML (< 0.10)
[2021-01-24] MEDS ORDERED: HOME MED LIST COMPLETE! XX SCH (14:25)
[2021-01-24 14:45] VITALS: BP 123/67
--- NOTE | 2021-01-24 16:25 | CR.PDOC ---
General Date of Consultation: Jan 24, 2021 Referring Provider: SOWMYA SALEH MD Attending Physician: SAMI VILLALOBOS MD Consultation REASON FOR CONSULTATION/CHIEF COMPLAINT: SVT now resolved HISTORY OF PRESENT ILLNESS: 75-year-old male who presented to the ED directly from the interventional radiology angiography suite due to abnormal heart rhythm while he was in the preoperative care unit before planned right lower extremity angioplasty. The indication for the procedure was poor vascular flow and a poorly healing right foot wound with history of osteomyelitis for which she has been on antibiotics. The patient denied having any symptoms during the period of abnormal heart rhythm, including chest pain, palpitations, shortness of breath, nausea, or vomiting. The patient denies any history of abnormal heart rhythm in the past. Initially, the concern was for atrial fibrillation with RVR. However on review in the ED, the rhythm appeared to be SVT with PVCs. The rate appeared to be in the 120s. The patient did spontaneously convert into sinus rhythm, which is documented on a second EKG. The patient was also noted to be positive for orthostatic hypotension while in the emergency department. Of note the patient was n.p.o. overnight and this morning for his expected procedure. He did take all of his home medications including those for hypertension this morning. Since being in the emergency room, the patient has been able to tolerate a diet and reports he is currently feeling well. ALLERGIES: Please see below. HOME MEDICATIONS: Please see below. PAST MEDICAL HISTORY: Non-pressure chronic ulcer of right heel and midfoot with necrosis of bone HTN PVD Gout HLD CAD Prostate CA PAST SURGICAL HISTORY: Colonoscopy 2010 Left arm surgery after trauma 2015 Radical Prostatectomy 2017 Foot debridement 2020 FAMILY HISTORY: Noncontributory SOCIAL HISTORY: Former smoker REVIEW OF SYSTEMS: CONSTITUTIONAL: Denies fevers, chills, night sweats, fatigue, unexpected change in weight. HEENT: Denies change in vision, change in hearing. CARDIOVASCULAR: Denies chest pain, palpitations, shortness of breath, lightheadedness. RESPIRATORY: Denies dyspnea, cough, wheezing. GASTROINTESTINAL: Denies nausea, vomiting, abdominal pain, diarrhea, constipation. GENITOURINARY: Denies dysuria, urinary frequency, urinary urgency. SKIN: Report open lesion on left foot which is chronic. MUSCULOSKELETAL: Denies joint pain or muscle aches. NEUROLOGICAL: Denies headache, dizziness, weakness. PSYCHIATRIC: Denies change in mood. PHYSICAL EXAMINATION: VITAL SIGNS: Please see below. GENERAL: Alert, comfortable, in no acute distress HEENT: Normocephalic, atraumatic, moist mucous membranes NECK: Supple, trachea midline, no lymphadenopathy, no JVD CARDIOVASCULAR: Regular rate and rhythm, normal S1 and S2. RESPIRATORY: Clear to auscultation bilaterally with equal air entry bilaterally. ABDOMEN: Soft, nontender, nondistended, bowel sounds present. EXTREMITIES: No edema. SKIN: There is an ulceration over the fifth metatarsal of the right foot with malodorous dressing that is saturated with serosanguineous fluid. No purulent discharge is noted. No surrounding erythema, warmth, or swelling. NEUROLOGIC: Alert and oriented x3 to person, place and time. No focal deficits appreciated PSYCHIATRIC: Mood and affect appropriate LABORATORY DATA: Please see below. ASSESSMENT/PLAN: 75-year-old male with past medical history of chronic ulcer of the right heel with recent osteomyelitis currently on oral antibiotics, hypertension, peripheral vascular disease, gout, hyperlipidemia, and coronary artery disease with prior cardiac angioplasty (no stents placed) who presented to the ED directly from IR due to abnormal heart rhythm, found to be in SVT, asymptomatic, which spontaneously converted to sinus rhythm, and found to be orthostatic positive likely due to dehydration. Regarding the patient's abnormal heart rhythm, review of the monitor strips and initial EKG suggest the patient was in SVT. We believe this is related to his dehydration as he did not eat since dinner last night for his procedure today. Additionally the patient took his home medications which can contribute to the suspected dehydration. This also explains why the patient has positive orthostatic vital signs. We recommend rehydration. The patient has already had a meal and would likely benefit from some IV fluid hydration. The patient does not require inpatient admission as he is currently in sinus rhythm, asymptomatic, and can be rehydrated in the ER for his dehydration prior to discharge home. We recommend discharge home from the ER with this plan. Regarding the patient's right foot wound, we did examine this and it does not appear acutely infected. The dressing should be changed as it was saturated. The patient can continue to follow-up outpatient with wound care and podiatry as scheduled. The patient should complete the course of antibiotics he is currently taking for his recent diagnosis of osteomyelitis. The patient does not have any signs or symptoms of recurrent infection at this time. We have recommended this care plan to the ED physician and we do not recommend i npatient admission at this time. Vital Signs/I&O Vital Signs Date Time Temp Pulse Resp B/P (MAP) Pulse Ox O2 Delivery O2 Flow Rate FiO2 01/24/21 15:13 86 01/24/21 14:45 20 123/67 (85) 98 Room Air 01/24/21 10:20 97.1 Laboratory Data Labs 24H Laboratory Tests 2 01/24/21 10:20: Prothrombin Time 14.2H, Prothromb Time International Ratio 1.06, Activated Partial Thromboplast Time 36.8, Anion Gap 6L, Glomerular Filtration Rate > 60.0, Calcium Level 9.3, Phosphorus Level 2.9, Magnesium Level 2.2, Total Bilirubin 0.4, Direct Bilirubin 0.1, Aspartate Amino Transf (AST/SGOT) 9, Alanine Aminotransferase (ALT/SGPT) 11L, Alkaline Phosphatase 87, Total Creatine Kinase 62, Creatine Kinase MB < 1.0, Creatine Kinase MB Relative Index 1.61, Troponin I < 0.02, TD-Ovy-U-Type Natriuretic Peptide 265H, Total Protein 7.2, Albumin 3.1L, Albumin/Globulin Ratio 0.8, Lipase 89, Thyroid Stimulating Hormone (TSH) 0.770, Free Thyroxine 1.26 01/24/21 10:21: Immature Granulocyte % (Auto) 0.4, Neutrophils (%) (Auto) 57.4, Lymphocytes (%) (Auto) 31.9, Monocytes (%) (Auto) 7.8, Eosinophils (%) (Auto) 1.9, Basophils (%) (Auto) 0.6, Neutrophils # (Auto) 4.0, Lymphocytes # (Auto) 2.2, Monocytes # (Auto) 0.6, Eosinophils # (Auto) 0.1, Basophils # (Auto) 0.0, Nucleated Red Blood Cells % (auto) 0.0 CBC/BMP Laboratory Tests 01/24/21 10:20 01/24/21 10:21 Allergies Coded Allergies: shellfish derived (Verified Allergy, Severe, HIVES, DIFFICULTY BREATHING, 09/13/18) iodine (Verified Allergy, Unknown, 09/13/18) Home Medications Scheduled Aspirin (Aspirin EC) 81 Mg Tab, 81 MG PO DAILY, (Reported) Colchicine (Colchicine) 0.6 Mg Tab, 0.6 MG PO DAILY, (Reported) Ergocalciferol (Vitamin D2) (Vitamin D2) 50,000 Units Cap, 50,000 UNITS PO QMONTH, (Reported) Lanolin Alcohol/Mo/W.pet/[place] (Eucerin Creme) 454 Gm Cream..g., 1 APLCT TOP BID, (Reported) APPLY TO FEET Metoprolol Tartrate (Metoprolol Tartrate) 25 Mg Tab, 25 MG PO BID, (Reported) Spironolactone (Spironolactone) 25 Mg Tab, 25 MG PO BID, (Reported) Valsartan (Diovan) 160 Mg Tab, 160 MG PO DAILY, (Reported) allopurinoL (allopurinoL) 300 Mg Tablet, 300 MG PO DAILY, (Reported) Scheduled PRN Acetaminophen (Acetaminophen) 325 Mg Tab, 650 MG PO Q4H PRN for MILD PAIN OR FEVER, (Reported) Sennosides (Senna Laxative) 8.6 Mg Tab, 8.6 MG PO BID PRN for CONSTIPATION, (Reported) GME ATTESTATION GME ATTESTATION My faculty preceptor for this patient encounter was physically present during the encounter and was fully available. All aspects of the patient interview, examination, medical decision making process, and medical care plan development were reviewed and approved by the faculty preceptor. The faculty preceptor is aware and concurs with the plan as stated in the body of this note and will attest to such by his/her cosignature. ATTENDING NOTE I, Sami Villalobos MD, have independently examined this patient and performed my own physical exam, as well as reviewed the documentation and edited where necessary. I have discussed in detail with the resident / student the findings and plan of treatment as documented by the resident / student and edited their note. I agree with their findings and treatment plan and have edited their documentation. ZAFAR PERDOMO D.O. Jan 24, 2021 16:25 SAMI VILLALOBOS MD Jan 29, 2021 15:36
--- NOTE | 2021-01-25 08:33 | ECGEPIP ---
[facility] - ED Test Date: 2021-01-24 Pat Name: ILANA HENDRICKS Department: Room: - Gender: Male Dice Maker: DRE : 1945 Requested By: WASHINGTON Whitmore Order Number: [id number] Reading MD: Suresh Rodrigues Measurements Intervals [place] Rate: 125 P: AK: QRS: -33 QRSD: 92 T: 79 QT: 302 QTc: 435 Interpretive Statements Sinus tachycardia with occasional premature ventricular complexes Left axis deviation RATE CHANGE COMPARED TO 08/25/20 Electronically Signed on 01-25-2021 8:33:22 EDT by Suresh Rodrigues
--- NOTE | 2021-01-25 08:51 | ECGEPIP ---
[facility] - ED Test Date: 2021-01-24 Pat Name: ILANA HENDRICKS Department: Room: - Gender: Male Contract Administration Specialist: MILOANITA : 1945 Requested By: SOWMYA Lebron Order Number: [id number] Reading MD: Suresh Rodrigues Measurements Intervals [place] Rate: 74 P: 46 AR: 180 QRS: -31 QRSD: 86 T: 44 QT: 370 QTc: 410 Interpretive Statements Normal sinus rhythm Left axis deviation RHYTHM/RATE CHANGE COMPARED TO PRIOR ON SAME DATE Electronically Signed on 01-25-2021 8:51:27 EDT by Suresh Rodrigues
== END 2021-01-24 16:20 | disposition home or self-care (01) ==
LOC: M ED 10:09
DX: I95.1 Orthostatic hypotension (principal); I47.1 Supraventricular tachycardia; L97.419 Non-pressure chronic ulcer of right heel and midfoot with unspecified severity; I10 Essential (primary) hypertension; I25.10 Atherosclerotic heart disease of native coronary artery without angina pectoris; E78.5 Hyperlipidemia, unspecified; M10.9 Gout, unspecified; Z79.899 Other long term (current) drug therapy; Z79.82 Long term (current) use of aspirin; Z88.8 Allergy status to other drugs, medicaments and biological substances; Z91.018 Allergy to other foods

== ENCOUNTER → 2021-01-24 | Outpatient (CLI) | payer MEDICARE, OTHER ==
[~2021-01-24] MED LIST changes: +ISOVUE-300 61% 50ML VIAL As Ordered ONE; +LIDOCAINE 1% MDV 20ML VIAL As Ordered ONE; +MIDAZOLAM INJ 2MG/2ML VIAL (J2250 PER 1MG) As Ordered ONE; +diphenhydrAMINE 50MG/ML VIAL (J1200) As Ordered ONE; +fentaNYL 100 MCG/2 ML INJECTION (J3010) As Ordered ONE
[2021-01-24 09:40] VITALS: BP 85/54
== END ==
LOC: M IRPRO 09:33
PROVIDERS: ATTEND Radiology Diagnostic Radiology
DX: I87.2 Venous insufficiency (chronic) (peripheral) (principal); I95.1 Orthostatic hypotension; I47.1 Supraventricular tachycardia; E86.0 Dehydration; L97.419 Non-pressure chronic ulcer of right heel and midfoot with unspecified severity; I10 Essential (primary) hypertension; I25.10 Atherosclerotic heart disease of native coronary artery without angina pectoris; E78.5 Hyperlipidemia, unspecified; M10.9 Gout, unspecified; R94.31 Abnormal electrocardiogram [ECG] [EKG]; Z79.899 Other long term (current) drug therapy; Z79.82 Long term (current) use of aspirin; Z88.8 Allergy status to other drugs, medicaments and biological substances; Z91.018 Allergy to other foods
CPT/HCPCS: 71045; 80048; 80076; 82550; 82553; 83690; 83735; 83880; 84100; 84439; 84443; 84484; 85025; 85610; 85730; 93005; 93041; 99285; J1200; J1644; J2250; J3010; Q9967

== ENCOUNTER → 2021-01-30 | Outpatient (CLI) | payer MEDICARE, OTHER ==
[2021-01-30 13:37] LABS: BASO # 0.1 10^3/uL (0.0-0.2); BASO % 0.9 % (0.0-1.0); EOS # 0.1 10^3/uL (0.0-0.5); HEMATOCRIT 41.9 % (42.0-52.0); LYMPH # 2.1 10^3/uL (1.5-5.0); LYMPH % 32.7 % (24.0-44.0); MEAN CORPUSCULAR HEMOGLOBIN 25.7 pg (27.0-33.0); MONO # 0.5 10^3/uL (0.0-0.8); MONO % 7.5 % (2.0-8.0); NEUTROPHILS # 3.6 10^3/uL (1.5-8.5); NEUTROPHILS % 56.3 % (36.0-66.0); PLATELET COUNT, AUTOMATED 218 10^3/uL (150-450); RED BLOOD COUNT 5.05 10^6/uL (4.30-6.10); WHITE BLOOD COUNT 6.4 10^3/uL (4.0-10.0)
[2021-01-30 13:58] LABS: BLOOD UREA NITROGEN 14 MG/DL (7-18); C REACTIVE PROTEIN QUANTITATIV 5.88 MG/DL (0.00-0.30); CALCIUM LEVEL 9.2 MG/DL (8.8-10.2); CARBON DIOXIDE LEVEL 28 MEQ/L (21-32); CHLORIDE LEVEL 108 MEQ/L (98-107); CREATININE FOR GFR 0.98 MG/DL (0.70-1.30); GLOMERULAR FILTRATION RATE > 60.0 (>42); GLUCOSE, FASTING 82 MG/DL (70-100); POTASSIUM SERUM 4.6 MEQ/L (3.5-5.1); SODIUM LEVEL 140 MEQ/L (136-145)
[2021-01-30 14:55] LABS: ERYTHROCYTE SEDIMENTATION RATE 54 mm/hr (0-20)
== END ==
LOC: M PLALAB 11:39
PROVIDERS: ATTEND Internal Medicine Infectious Disease
DX: M86.171 Other acute osteomyelitis, right ankle and foot (principal)
CPT/HCPCS: 36415; 80048; 85025; 85652; 86140; 96372; G0463; J0561

== ENCOUNTER → 2021-02-20 | Outpatient (CLI) | payer MEDICARE, OTHER ==
[~2021-02-20] MED LIST changes: +ISOVUE-300 61% 50ML VIAL As Ordered ONE; +LIDOCAINE 1% MDV 20ML VIAL As Ordered ONE; +MIDAZOLAM INJ 2MG/2ML VIAL (J2250 PER 1MG) As Ordered ONE; +NS 1,000 ML IV SCH; +ONDANSETRON 4MG/2ML VIAL IV PRN; +PERCOCET 5MG/325MG TAB As Ordered ONE; +PERCOCET 5MG/325MG TAB PO PRN; +diphenhydrAMINE 50MG/ML VIAL (J1200) As Ordered ONE; +fentaNYL 100 MCG/2 ML INJECTION (J3010) As Ordered ONE
--- NOTE | 2021-02-20 07:35 | IRHP ---
[facility] IR Pre-Procedure H & P General Date of Service: Feb 20, 2021 Procedure: Same Day Surgery Interval History and Physical I have seen the patient and reviewed last H & P performed within 30 days. There is no significant interval change. History of Present Illness Chief Complaint The patient is a 75-year-old male admitted with a reason for visit of PAD. PRE-PROCEDURE DIAGNOSIS: PAD HEART: Normal rate. LUNGS: Normal breathing at rest. ASA Classification ASA Classification: III-Severe systemic dis. Mallampati Score: II NPO: Yes Problems with prior sedation: No Obstructive Sleep Apnea: No Plan moderate sedation Allergies Coded Allergies: shellfish derived (Verified Allergy, Severe, HIVES, DIFFICULTY BREATHING, 09/13/18) iodine (Verified Allergy, Unknown, 09/13/18) Home Medications Scheduled Aspirin (Aspirin EC), 81 MG PO DAILY, (Reported) Colchicine (Colchicine), 0.6 MG PO DAILY, (Reported) Ergocalciferol (Vitamin D2) (Vitamin D2), 50,000 UNITS PO QMONTH, (Reported) Lanolin Alcohol/Mo/W.pet/[place] (Eucerin Creme), 1 APLCT TOP BID, (Reported) Metoprolol Tartrate (Metoprolol Tartrate), 25 MG PO BID, (Reported) Spironolactone (Spironolactone), 25 MG PO BID, (Reported) Valsartan (Diovan), 160 MG PO DAILY, (Reported) allopurinoL (allopurinoL), 300 MG PO DAILY, (Reported) Scheduled PRN Acetaminophen (Acetaminophen), 650 MG PO Q4H PRN for MILD PAIN OR FEVER, (Reported) Sennosides (Senna Laxative), 8.6 MG PO BID PRN for CONSTIPATION, (Reported) VS, I&O, 24H, Fishbone Vital Signs/I&O Vital Signs Date Time Temp Pulse Resp B/P (MAP) Pulse Ox O2 Delivery O2 Flow Rate FiO2 02/20/21 07:01 97.0 72 20 99 Room Air CLEMENTINA BLOOM MD Feb 20, 2021 07:35
--- NOTE | 2021-02-20 12:33 | IRPON ---
IR Postoperative Note Date Of Procedure: Feb 20, 2021 Time Of Procedure: 12:25 IR Postoperative Note IR Ultrasound-guided antegrade right common femoral artery access. IR Moderate sedation. Clinical Information:Nonhealing right lower extremity ulcer. Physician: Dr. Meade. Procedure: The patient was advised of the benefits, risks, and alternatives of the procedure and informed consent was obtained. A time out was performed with verification of the patient's name, MRN, site of procedure, and type of procedure to be performed. The patient was positioned in the supine position on the angiographic table. The site was prepped and draped in the usual sterile fashion. Moderate sedation was performed by the physician including the presence of an independent trained RN, who assisted in monitoring the patient's level of consciousness and physiological status. Following the administration of fentanyl and Versed, the physician spent 60 minutes of continuous [id number] time with the patient. A personnel and payroll technician radiograph reveals no gross abnormality. Ultrasound of the right groin demonstrates patent right common femoral artery. Lidocaine was used for local anesthesia. The right common femoral artery was accessed, antegrade under ultrasound guidance with a microintroducer set. A short 0.018" [place] wire was inserted under fluoroscopy guidance, but could not be navigated from this angle, into the right superficial femoral artery. The needle was removed over the wire. A micro-sheath was advanced over the wire under fluoroscopy guidance. A [place] wire was used under fluoroscopy guidance, with simultaneous retraction of the sheath, to try to catheterize the right superfi cial femoral artery. However, this was not possible. The initial access was removed, pressure held and hemostasis achieved. A second attempt at antegrade right common femoral artery access was performed with the same result. Sheath and wire were removed, pressure held and hemostasis achieved. A sterile dressing was applied to the site. The patient tolerated the procedure well and was returned to the PRU in stable condition. EBL: < 5 mL. Complications:None. Impression: Unsuccessful attempt at antegrade right leg access for arterial intervention. 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 Patient will be brought back for left groin access up and over intervention. CLEMENTINA MEADE MD Feb 20, 2021 12:33
[2021-02-20 14:00] VITALS: BP 141/85
== END ==
LOC: M IRPRO 06:56
PROVIDERS: ATTEND Radiology Diagnostic Radiology
DX: I73.9 Peripheral vascular disease, unspecified (principal); L97.414 Non-pressure chronic ulcer of right heel and midfoot with necrosis of bone; E78.5 Hyperlipidemia, unspecified; I12.9 Hypertensive chronic kidney disease with stage 1 through stage 4 chronic kidney disease, or unspecified chronic kidney disease; N18.2 Chronic kidney disease, stage 2 (mild); Z79.82 Long term (current) use of aspirin; Z79.899 Other long term (current) drug therapy; Z85.46 Personal history of malignant neoplasm of prostate; Z86.73 Personal history of transient ischemic attack (TIA), and cerebral infarction without residual deficits; Z87.891 Personal history of nicotine dependence; Z91.013 Allergy to seafood; Z91.041 Radiographic dye allergy status
CPT/HCPCS: 36246; 99152; 99153; C1769; C1887; C1894; J1644; J2250; J3010; Q9967

== ENCOUNTER 2021-12-15 15:17 | Inpatient (IN) | payer MEDICARE, OTHER ==
[~2021-12-15] VITALS: Ht 180.3 cm; Wt 116.3 kg
[~2021-12-15 15:17] MED LIST changes: -ISOVUE-300 61% 50ML VIAL As Ordered ONE; -LIDOCAINE 1% MDV 20ML VIAL As Ordered ONE; -MIDAZOLAM INJ 2MG/2ML VIAL (J2250 PER 1MG) As Ordered ONE; -NS 1,000 ML IV SCH; -ONDANSETRON 4MG/2ML VIAL IV PRN; -PERCOCET 5MG/325MG TAB As Ordered ONE; -PERCOCET 5MG/325MG TAB PO PRN; -diphenhydrAMINE 50MG/ML VIAL (J1200) As Ordered ONE; -fentaNYL 100 MCG/2 ML INJECTION (J3010) As Ordered ONE
[2021-12-15] MEDS ORDERED: NS 1,000 ML IV ONE ×2 (16:35→19:45)
[2021-12-15 17:36] LABS: BASO % 0.2 % (0.0-1.0); EOS % 0.2 % (0.0-3.0); HEMATOCRIT 38.8 % (42.0-52.0); HEMOGLOBIN 12.6 g/dl (13.5-17.5); LYMPH # 1.2 10^3/uL (1.5-5.0); LYMPH % 7.3 % (24.0-44.0); MEAN CORPUSCULAR HEMOGLOBIN 25.8 pg (27.0-33.0); MEAN CORPUSCULAR HGB CONC 32.5 g/dl (32.0-36.5); MEAN CORPUSCULAR VOLUME 79.3 fl (80.0-96.0); MONO # 1.1 10^3/uL (0.0-0.8); MONO % 6.3 % (2.0-8.0); NEUTROPHILS # 14.5 10^3/uL (1.5-8.5); NEUTROPHILS % 85.2 % (36.0-66.0); PLATELET COUNT, AUTOMATED 308 10^3/uL (150-450); RED BLOOD COUNT 4.89 10^6/uL (4.30-6.10)
[2021-12-15] MEDS ORDERED: ASPI81CH33 PO (17:46)
[2021-12-15 18:01] LABS: ERYTHROCYTE SEDIMENTATION RATE 64 mm/hr (0-20)
[2021-12-15] MEDS ORDERED: HOME MED LIST COMPLETE! XX SCH (18:15)
[2021-12-15 18:17] LABS: BLOOD UREA NITROGEN 25 MG/DL (7-18); CARBON DIOXIDE LEVEL 27 MEQ/L (21-32); CHLORIDE LEVEL 106 MEQ/L (98-107); CREATININE FOR GFR 1.32 MG/DL (0.70-1.30); GLOMERULAR FILTRATION RATE > 60.0 (>42); GLUCOSE, FASTING 94 MG/DL (70-100); POTASSIUM SERUM 4.6 MEQ/L (3.5-5.1); SODIUM LEVEL 140 MEQ/L (136-145)
[2021-12-15] MEDS ORDERED: VANCOMYCIN HCL 2,000 MG in D5W 500 ML IV ONE (18:55)
[2021-12-15] MEDS ORDERED: VANCOMYCIN HCL 1,000 MG, VIAL MATE ADAPTER 1 EACH in NS 250 ML IV ONE ×2 (19:30→20:30)
[2021-12-15] MEDS ORDERED: ONDANSETRON 4MG 2ML VIAL IV PRN (19:45)
[2021-12-15] MEDS ORDERED: NS 1,000 ML IV SCH (19:45)
[2021-12-15] MEDS ORDERED: NORCO, ANEXSIA 5/325MG TABLET (HYDROcodone/ACETAMINOPHEN) PO PRN (19:45)
[2021-12-15 21:30] VITALS: BP 125/94
[2021-12-15 21:34] LABS: NT-PRO BNP 768 PG/ML (<450)
[2021-12-15] MEDS: ceFAZolin SOD 2 GM in IV 1 EA IV SCH (22:27)
[2021-12-15] MEDS ORDERED: SENNA 8.6 MG TAB (SENOKOT) PO PRN (22:50)
[2021-12-15] MEDS: METOPROLOL TART 25 MG TABLET PO SCH (23:45)
[2021-12-16] VITALS (9 sets, daily range): BP systolic 130–159; BP diastolic 75–96
[2021-12-16] MEDS ORDERED: VANCOMYCIN HCL 750 MG, VIAL MATE ADAPTER 1 EACH in NS 250 ML IV SCH ×2 (03:00→04:00)
[2021-12-16] MEDS ORDERED: IPRATROPIUM 0.5MG/ALBUTEROL 2.5MG INH SOL UD 3ML (DUONEB) NEB PRN (04:00)
[2021-12-16] MEDS ORDERED: FUROSEMIDE 20MG/2ML VIAL (J1940) IV ONE (04:50)
[2021-12-16] MEDS ORDERED: LEVALBUTEROL 1.25 MG/0.5 ML CONCENTRATE NEB NEB ONE (05:45)
[2021-12-16] MEDS: ceFAZolin SOD 2 GM in IV 1 EA IV SCH ×3 (06:10→23:24)
[2021-12-16] MEDS: HEPARIN SOD (PORCINE) 5000UNITS/ML 1ML VIAL/SYRINGE SC SCH ×3 (06:10→22:24)
[2021-12-16 06:59] LABS: HEMATOCRIT 36.2 % (42.0-52.0); HEMOGLOBIN 12.2 g/dl (13.5-17.5); MEAN CORPUSCULAR HEMOGLOBIN 26.6 pg (27.0-33.0); MEAN CORPUSCULAR HGB CONC 33.7 g/dl (32.0-36.5); MEAN CORPUSCULAR VOLUME 78.9 fl (80.0-96.0); PLATELET COUNT, AUTOMATED 297 10^3/uL (150-450); RED BLOOD COUNT 4.59 10^6/uL (4.30-6.10); WHITE BLOOD COUNT 12.8 10^3/uL (4.0-10.0)
[2021-12-16 07:10] LABS: INR 1.19; PARTIAL THROMBOPLASTIN TIME 34.9 SECONDS (25.9-37.0); PROTHROMBIN TIME 15.5 SECONDS (12.7-14.5)
[2021-12-16 07:26] LABS: HEMOGLOBIN A1c 5.5 %
[2021-12-16 07:42] LABS: BLOOD UREA NITROGEN 21 MG/DL (7-18); CALCIUM LEVEL 9.2 MG/DL (8.8-10.2); CARBON DIOXIDE LEVEL 23 MEQ/L (21-32); CHLORIDE LEVEL 110 MEQ/L (98-107); CREATININE FOR GFR 1.05 MG/DL (0.70-1.30); GLOMERULAR FILTRATION RATE > 60.0 (>42); GLUCOSE, FASTING 92 MG/DL (70-100); POTASSIUM SERUM 4.2 MEQ/L (3.5-5.1); SODIUM LEVEL 142 MEQ/L (136-145)
[2021-12-16] MEDS: ASPIRIN 81 MG CHEW TABLET PO SCH (08:32)
[2021-12-16] MEDS: LACTOBACILLUS ACIDOPHILUS CAP (BACID) PO SCH (08:32)
[2021-12-16] MEDS: METOPROLOL TART 25 MG TABLET PO SCH ×3 (08:34→22:26)
[2021-12-16] MEDS ORDERED: GENTAMICIN SULF 80MG/2ML VIAL As Ordered ONE ×2 (13:54→14:42)
[2021-12-16] MEDS ORDERED: dexameTHASONE 4 MG/ML 1ML VIAL (J1100 PER 1MG) As Ordered ONE (13:55)
[2021-12-16] MEDS ORDERED: BUPIVACAINE HCL 0.5% 30ML VIAL As Ordered ONE (13:55)
[2021-12-16] MEDS ORDERED: LIDOCAINE 2% MDV 20ML VIAL As Ordered ONE (13:55)
[2021-12-16] MEDS ORDERED: MIDAZOLAM INJ 2MG/2ML VIAL (J2250 PER 1MG) As Ordered ONE (15:21)
[2021-12-16] MEDS ORDERED: propofoL 200 MG/20 ML VIAL As Ordered ONE ×2 (15:21→15:37)
[2021-12-16] MEDS ORDERED: fentaNYL 100 MCG/2 ML INJECTION As Ordered ONE (15:21)
[2021-12-16] MEDS ORDERED: ONDANSETRON 4MG 2ML VIAL IV PRN (16:00)
[2021-12-16] MEDS ORDERED: fentaNYL 100 MCG/2 ML INJECTION IV PRN (16:00)
[2021-12-16] MEDS ORDERED: PERCOCET 5MG/325MG TAB PO PRN ×2 (16:35)
[2021-12-16] MEDS ORDERED: VANCOMYCIN HCL 1,000 MG, VIAL MATE ADAPTER 1 EACH in NS 250 ML IV SCH (21:00)
[2021-12-17 03:10] VITALS: BP 129/83
[2021-12-17] MEDS ORDERED: LEVALBUTEROL 1.25 MG/0.5 ML CONCENTRATE NEB NEB ONE (03:20)
[2021-12-17 03:23] LABS: VENOUS BASE EXCESS -1.9 (-2.0-2.0); VENOUS HCO3 21.4 MEQ/L (23.0-27.0); VENOUS O2 SATURATION 98.4 % (60.0-80.0); VENOUS PARTIAL PRESSURE O2 107.9 mmHg (30.0-50.0); VENOUS PH 7.444 UNITS (7.330-7.430); VENOUS STANDARD HCO3 22.9 MEQ/L; VENOUS TOTAL CO2 22.4 MEQ/L (24.0-28.0)
[2021-12-17 03:26] LABS: HEMATOCRIT 33.3 % (42.0-52.0); HEMOGLOBIN 11.4 g/dl (13.5-17.5); MEAN CORPUSCULAR HEMOGLOBIN 26.8 pg (27.0-33.0); MEAN CORPUSCULAR HGB CONC 34.2 g/dl (32.0-36.5); MEAN CORPUSCULAR VOLUME 78.2 fl (80.0-96.0); PLATELET COUNT, AUTOMATED 331 10^3/uL (150-450); RED BLOOD COUNT 4.26 10^6/uL (4.30-6.10); WHITE BLOOD COUNT 11.3 10^3/uL (4.0-10.0)
[2021-12-17 03:27] LABS: BASO # 0.1 10^3/uL (0.0-0.2); BASO % 0.4 % (0.0-1.0); EOS # 0.1 10^3/uL (0.0-0.5); EOS % 0.5 % (0.0-3.0); HEMATOCRIT 33.2 % (42.0-52.0); HEMOGLOBIN 11.5 g/dl (13.5-17.5); LYMPH # 0.9 10^3/uL (1.5-5.0); LYMPH % 7.6 % (24.0-44.0); MEAN CORPUSCULAR HEMOGLOBIN 26.6 pg (27.0-33.0); MEAN CORPUSCULAR HGB CONC 34.6 g/dl (32.0-36.5); MEAN CORPUSCULAR VOLUME 76.7 fl (80.0-96.0); MONO % 8.7 % (2.0-8.0); NEUTROPHILS # 9.7 10^3/uL (1.5-8.5); NEUTROPHILS % 81.9 % (36.0-66.0); PLATELET COUNT, AUTOMATED 301 10^3/uL (150-450); RED BLOOD COUNT 4.33 10^6/uL (4.30-6.10); WHITE BLOOD COUNT 11.8 10^3/uL (4.0-10.0)
[2021-12-17] MEDS ORDERED: GI COCKTAIL 50ML BTL(HYOSCYAMINE/MAALOX/LIDOCAINE VISCOUS)(1:3:1) PO ONE (03:45)
[2021-12-17 03:49] LABS: BLOOD UREA NITROGEN 24 MG/DL (7-18); CALCIUM LEVEL 8.8 MG/DL (8.8-10.2); CARBON DIOXIDE LEVEL 21 MEQ/L (21-32); CHLORIDE LEVEL 111 MEQ/L (98-107); GLOMERULAR FILTRATION RATE > 60.0 (>42); GLUCOSE, FASTING 126 MG/DL (70-100); POTASSIUM SERUM 4.1 MEQ/L (3.5-5.1); SODIUM LEVEL 141 MEQ/L (136-145)
[2021-12-17 03:50] LABS: ALT/SGPT 15 U/L (12-78); BILIRUBIN,TOTAL 2.2 MG/DL (0.2-1.0); BLOOD UREA NITROGEN 24 MG/DL (7-18); CARBON DIOXIDE LEVEL 20 MEQ/L (21-32); CHLORIDE LEVEL 110 MEQ/L (98-107); GLOMERULAR FILTRATION RATE > 60.0 (>42); GLUCOSE, FASTING 125 MG/DL (70-100); POTASSIUM SERUM 4.1 MEQ/L (3.5-5.1); SODIUM LEVEL 142 MEQ/L (136-145)
[2021-12-17] MEDS ORDERED: LIDOCAINE 5% (LIDODERM) PATCH TD ONE (04:00)
[2021-12-17] MEDS: METOPROLOL TART 25 MG TABLET PO SCH ×3 (04:10→21:55)
[2021-12-17 04:22] LABS: CK-MB VALUE MASS 2.9 NG/ML (<3.6); MB/CK RELATIVE INDEX 1.57 (< OR =4)
[2021-12-17 06:00] VITALS: BP 124/80
[2021-12-17] MEDS: HEPARIN SOD (PORCINE) 5000UNITS/ML 1ML VIAL/SYRINGE SC SCH ×3 (06:25→21:56)
[2021-12-17] MEDS: ceFAZolin SOD 2 GM in IV 1 EA IV SCH ×3 (06:25→21:55)
[2021-12-17 07:59] LABS: ERYTHROCYTE SEDIMENTATION RATE 70 mm/hr (0-20)
[2021-12-17] MEDS: ASPIRIN 81 MG CHEW TABLET PO SCH (10:11)
[2021-12-17] MEDS: LACTOBACILLUS ACIDOPHILUS CAP (BACID) PO SCH (10:11)
[2021-12-17 13:45] LABS: CK-MB VALUE MASS 3.1 NG/ML (<3.6); MB/CK RELATIVE INDEX 2.01 (< OR =4)
[2021-12-17 14:00] VITALS: BP 123/66
[2021-12-17] MEDS: VANCOMYCIN HCL 750 MG, VIAL MATE ADAPTER 1 EACH in NS 250 ML IV SCH ×2 (15:49→16:58)
[2021-12-17] MEDS ORDERED: **NOTE PATIENT COMMENT** MISC XX ONE (16:00)
[2021-12-17 18:00] VITALS: BP 126/68
[2021-12-17 21:55] VITALS: BP 128/70
[2021-12-18 05:39] LABS: HEMATOCRIT 31.5 % (42.0-52.0); HEMOGLOBIN 10.8 g/dl (13.5-17.5); MEAN CORPUSCULAR HEMOGLOBIN 27.1 pg (27.0-33.0); MEAN CORPUSCULAR HGB CONC 34.3 g/dl (32.0-36.5); MEAN CORPUSCULAR VOLUME 78.9 fl (80.0-96.0); PLATELET COUNT, AUTOMATED 272 10^3/uL (150-450); RED BLOOD COUNT 3.99 10^6/uL (4.30-6.10); WHITE BLOOD COUNT 12.8 10^3/uL (4.0-10.0)
[2021-12-18 05:57] LABS: ERYTHROCYTE SEDIMENTATION RATE 71 mm/hr (0-20)
[2021-12-18] MEDS: HEPARIN SOD (PORCINE) 5000UNITS/ML 1ML VIAL/SYRINGE SC SCH ×3 (05:59→20:43)
[2021-12-18] MEDS: ceFAZolin SOD 2 GM in IV 1 EA IV SCH ×2 (05:59→14:52)
[2021-12-18 06:00] VITALS: BP 128/69
[2021-12-18 06:05] LABS: BLOOD UREA NITROGEN 27 MG/DL (7-18); CALCIUM LEVEL 9.1 MG/DL (8.8-10.2); CARBON DIOXIDE LEVEL 24 MEQ/L (21-32); CHLORIDE LEVEL 109 MEQ/L (98-107); CREATININE FOR GFR 1.07 MG/DL (0.70-1.30); GLOMERULAR FILTRATION RATE > 60.0 (>42); GLUCOSE, FASTING 102 MG/DL (70-100); POTASSIUM SERUM 3.8 MEQ/L (3.5-5.1); SODIUM LEVEL 137 MEQ/L (136-145)
[2021-12-18] MEDS: ASPIRIN 81 MG CHEW TABLET PO SCH (08:10)
[2021-12-18] MEDS: LACTOBACILLUS ACIDOPHILUS CAP (BACID) PO SCH (08:10)
[2021-12-18] MEDS: METOPROLOL TART 25 MG TABLET PO SCH ×2 (08:15→20:45)
[2021-12-18 14:00] VITALS: BP 125/70
[2021-12-18] MEDS: VANCOMYCIN HCL 750 MG, VIAL MATE ADAPTER 1 EACH in NS 250 ML IV SCH ×2 (16:13→18:02)
[2021-12-18] MEDS ORDERED: AMPICILLIN SOD/SULBACTAM SOD 3 GM in D5W MINI-BAG PLUS 100 ML IV SCH (17:00)
[2021-12-18] MEDS: AMPICILLIN SOD/SULBACTAM SOD 3 GM in D5W MINI-BAG PLUS 100 ML IV SCH (20:43)
[2021-12-18 22:00] VITALS: BP 127/69
[2021-12-19] VITALS (8 sets, daily range): BP systolic 131–136; BP diastolic 70–73
[2021-12-19] MEDS: AMPICILLIN SOD/SULBACTAM SOD 3 GM in D5W MINI-BAG PLUS 100 ML IV SCH ×4 (02:12→20:05)
[2021-12-19] MEDS: HEPARIN SOD (PORCINE) 5000UNITS/ML 1ML VIAL/SYRINGE SC SCH ×3 (05:49→20:09)
[2021-12-19 06:40] LABS: HEMATOCRIT 32.1 % (42.0-52.0); HEMOGLOBIN 10.8 g/dl (13.5-17.5); MEAN CORPUSCULAR HEMOGLOBIN 26.8 pg (27.0-33.0); MEAN CORPUSCULAR HGB CONC 33.6 g/dl (32.0-36.5); MEAN CORPUSCULAR VOLUME 79.7 fl (80.0-96.0); PLATELET COUNT, AUTOMATED 313 10^3/uL (150-450); RED BLOOD COUNT 4.03 10^6/uL (4.30-6.10); WHITE BLOOD COUNT 11.3 10^3/uL (4.0-10.0)
[2021-12-19 07:10] LABS: BLOOD UREA NITROGEN 19 MG/DL (7-18); CALCIUM LEVEL 8.7 MG/DL (8.8-10.2); CARBON DIOXIDE LEVEL 26 MEQ/L (21-32); CHLORIDE LEVEL 111 MEQ/L (98-107); CREATININE FOR GFR 0.92 MG/DL (0.70-1.30); GLOMERULAR FILTRATION RATE > 60.0 (>42); GLUCOSE, FASTING 104 MG/DL (70-100); POTASSIUM SERUM 3.7 MEQ/L (3.5-5.1); SODIUM LEVEL 142 MEQ/L (136-145)
[2021-12-19] MEDS: LACTOBACILLUS ACIDOPHILUS CAP (BACID) PO SCH (09:00)
[2021-12-19] MEDS: ASPIRIN 81 MG CHEW TABLET PO SCH (09:00)
[2021-12-19] MEDS: METOPROLOL TART 25 MG TABLET PO SCH ×2 (09:07→20:05)
[2021-12-19] MEDS: VANCOMYCIN HCL 750 MG, VIAL MATE ADAPTER 1 EACH in NS 250 ML IV SCH ×2 (14:47→18:10)
[2021-12-19] MEDS ORDERED: LIDOCAINE 2% MDV 20ML VIAL As Ordered ONE (15:58)
[2021-12-19] MEDS ORDERED: BUPIVACAINE HCL 0.5% 30ML VIAL As Ordered ONE (15:58)
[2021-12-19] MEDS ORDERED: GENTAMICIN SULF 80MG/2ML VIAL As Ordered ONE ×2 (16:00→16:15)
[2021-12-19] MEDS ORDERED: MIDAZOLAM INJ 2MG/2ML VIAL (J2250 PER 1MG) As Ordered ONE (16:46)
[2021-12-19] MEDS ORDERED: fentaNYL 100 MCG/2 ML INJECTION As Ordered ONE (16:46)
[2021-12-19] MEDS ORDERED: ONDANSETRON 4MG 2ML VIAL IV PRN (17:25)
[2021-12-19] MEDS ORDERED: oxyCODONE 5MG TAB PO PRN (17:25)
[2021-12-19] MEDS ORDERED: fentaNYL 100 MCG/2 ML INJECTION IV PRN (17:25)
[2021-12-19] MEDS ORDERED: LR 1,000 ML IV SCH (17:25)
[2021-12-20 02:00] VITALS: BP 134/71
[2021-12-20] MEDS: AMPICILLIN SOD/SULBACTAM SOD 3 GM in D5W MINI-BAG PLUS 100 ML IV SCH ×4 (02:05→21:23)
[2021-12-20] MEDS: HEPARIN SOD (PORCINE) 5000UNITS/ML 1ML VIAL/SYRINGE SC SCH ×3 (05:38→21:23)
[2021-12-20 06:00] VITALS: BP 133/72
[2021-12-20 08:00] LABS: BLOOD UREA NITROGEN 17 MG/DL (7-18); CALCIUM LEVEL 9.1 MG/DL (8.8-10.2); CARBON DIOXIDE LEVEL 19 MEQ/L (21-32); CHLORIDE LEVEL 113 MEQ/L (98-107); GLOMERULAR FILTRATION RATE > 60.0 (>42); GLUCOSE, FASTING 91 MG/DL (70-100); SODIUM LEVEL 143 MEQ/L (136-145)
[2021-12-20] MEDS: LACTOBACILLUS ACIDOPHILUS CAP (BACID) PO SCH (08:33)
[2021-12-20] MEDS: ASPIRIN 81 MG CHEW TABLET PO SCH (08:33)
[2021-12-20] MEDS: METOPROLOL TART 25 MG TABLET PO SCH ×2 (08:35→21:23)
[2021-12-20 10:00] VITALS: BP 135/72
[2021-12-20 10:00] LABS: HEMATOCRIT 35.5 % (42.0-52.0); HEMOGLOBIN 11.5 g/dl (13.5-17.5); MEAN CORPUSCULAR HEMOGLOBIN 26.6 pg (27.0-33.0); MEAN CORPUSCULAR HGB CONC 32.4 g/dl (32.0-36.5); MEAN CORPUSCULAR VOLUME 82.2 fl (80.0-96.0); PLATELET COUNT, AUTOMATED 343 10^3/uL (150-450); RED BLOOD COUNT 4.32 10^6/uL (4.30-6.10); WHITE BLOOD COUNT 11.6 10^3/uL (4.0-10.0)
[2021-12-20] MEDS: allopurinoL 300 MG TAB PO SCH (10:57)
[2021-12-20 14:00] VITALS: BP 130/71
[2021-12-20] MEDS: VANCOMYCIN HCL 750 MG, VIAL MATE ADAPTER 1 EACH in NS 250 ML IV SCH ×2 (15:40→16:57)
[2021-12-20 18:00] VITALS: BP 130/72
[2021-12-20 22:00] VITALS: BP 147/75
[2021-12-21] MEDS: AMPICILLIN SOD/SULBACTAM SOD 3 GM in D5W MINI-BAG PLUS 100 ML IV SCH ×4 (02:24→21:09)
[2021-12-21 03:19] VITALS: BP 146/77
[2021-12-21] MEDS: LR 1,000 ML IV SCH ×3 (03:49→21:11)
[2021-12-21] MEDS: HEPARIN SOD (PORCINE) 5000UNITS/ML 1ML VIAL/SYRINGE SC SCH ×3 (05:06→21:10)
[2021-12-21 06:00] VITALS: BP 144/78
[2021-12-21 06:17] LABS: HEMATOCRIT 28.7 % (42.0-52.0); HEMOGLOBIN 9.7 g/dl (13.5-17.5); MEAN CORPUSCULAR HEMOGLOBIN 26.4 pg (27.0-33.0); MEAN CORPUSCULAR HGB CONC 33.8 g/dl (32.0-36.5); PLATELET COUNT, AUTOMATED 318 10^3/uL (150-450); RED BLOOD COUNT 3.68 10^6/uL (4.30-6.10); WHITE BLOOD COUNT 10.8 10^3/uL (4.0-10.0)
[2021-12-21 06:41] LABS: BLOOD UREA NITROGEN 15 MG/DL (7-18); CALCIUM LEVEL 8.9 MG/DL (8.8-10.2); CARBON DIOXIDE LEVEL 24 MEQ/L (21-32); CHLORIDE LEVEL 110 MEQ/L (98-107); CREATININE FOR GFR 0.81 MG/DL (0.70-1.30); GLOMERULAR FILTRATION RATE > 60.0 (>42); GLUCOSE, FASTING 99 MG/DL (70-100); POTASSIUM SERUM 3.3 MEQ/L (3.5-5.1); SODIUM LEVEL 143 MEQ/L (136-145)
[2021-12-21] MEDS: ASPIRIN 81 MG CHEW TABLET PO SCH (08:03)
[2021-12-21] MEDS: LACTOBACILLUS ACIDOPHILUS CAP (BACID) PO SCH (08:03)
[2021-12-21] MEDS: METOPROLOL TART 25 MG TABLET PO SCH ×2 (08:05→21:10)
[2021-12-21 08:16] LABS: MAGNESIUM LEVEL 1.9 MG/DL (1.8-2.4)
[2021-12-21] MEDS: allopurinoL 300 MG TAB PO SCH (08:32)
[2021-12-21 14:00] VITALS: BP 156/82
[2021-12-21] MEDS: VANCOMYCIN HCL 750 MG, VIAL MATE ADAPTER 1 EACH in NS 250 ML IV SCH (15:20)
[2021-12-21] MEDS: VANCOMYCIN HCL 1,000 MG, VIAL MATE ADAPTER 1 EACH in D5W 250 ML IV SCH (17:02)
[2021-12-21] MEDS: ACETAMINOPHEN TAB 650MG DOSE (2X325MG) PO PRN (21:10)
[2021-12-21 22:19] VITALS: BP 137/70
[2021-12-22 02:40] VITALS: BP 118/77
[2021-12-22] MEDS: AMPICILLIN SOD/SULBACTAM SOD 3 GM in D5W MINI-BAG PLUS 100 ML IV SCH ×2 (02:48→08:29)
[2021-12-22] MEDS: HEPARIN SOD (PORCINE) 5000UNITS/ML 1ML VIAL/SYRINGE SC SCH ×3 (05:37→21:50)
[2021-12-22 06:00] VITALS: BP 140/75
[2021-12-22 06:17] LABS: HEMATOCRIT 29.1 % (42.0-52.0); MEAN CORPUSCULAR HGB CONC 34.4 g/dl (32.0-36.5); MEAN CORPUSCULAR VOLUME 78.6 fl (80.0-96.0); PLATELET COUNT, AUTOMATED 266 10^3/uL (150-450)
[2021-12-22 06:43] LABS: BLOOD UREA NITROGEN 11 MG/DL (7-18); CALCIUM LEVEL 8.5 MG/DL (8.8-10.2); CARBON DIOXIDE LEVEL 27 MEQ/L (21-32); CHLORIDE LEVEL 109 MEQ/L (98-107); CREATININE FOR GFR 0.72 MG/DL (0.70-1.30); GLOMERULAR FILTRATION RATE > 60.0 (>42); GLUCOSE, FASTING 88 MG/DL (70-100); MAGNESIUM LEVEL 1.7 MG/DL (1.8-2.4); POTASSIUM SERUM 3.1 MEQ/L (3.5-5.1); SODIUM LEVEL 143 MEQ/L (136-145)
[2021-12-22 07:00] LABS: ERYTHROCYTE SEDIMENTATION RATE 86 mm/hr (0-20)
[2021-12-22] MEDS: allopurinoL 300 MG TAB PO SCH (08:28)
[2021-12-22] MEDS: LACTOBACILLUS ACIDOPHILUS CAP (BACID) PO SCH (08:28)
[2021-12-22] MEDS: ASPIRIN 81 MG CHEW TABLET PO SCH (08:28)
[2021-12-22] MEDS: METOPROLOL TART 25 MG TABLET PO SCH ×2 (08:31→21:53)
[2021-12-22 09:38] VITALS: BP 145/75
[2021-12-22] MEDS ORDERED: MAG SULF 1GM/100ML (MAG RUN) 1 GM in IV 1 EA IV ONE (13:30)
[2021-12-22] MEDS ORDERED: POTASSIUM CHLORIDE 10% LIQ 20 MEQ/15 ML UDC PO ONE (13:30)
[2021-12-22 14:00] VITALS: BP 144/75
[2021-12-22] MEDS ORDERED: LIDOCAINE 1% MDV 20ML VIAL As Ordered ONE (14:53)
[2021-12-22] MEDS: VANCOMYCIN HCL 1,000 MG, VIAL MATE ADAPTER 1 EACH in D5W 250 ML IV SCH (17:40)
[2021-12-22] MEDS ORDERED: AMPICILLIN SOD/SULBACTAM SOD 3 GM in D5W MINI-BAG PLUS 100 ML IV SCH (18:00)
[2021-12-22] MEDS ORDERED: SODIUM CHLORIDE 0.9% INJ 10 ML SYR IV PRN (19:40)
[2021-12-22] MEDS: VANCOMYCIN HCL 750 MG, VIAL MATE ADAPTER 1 EACH in NS 250 ML IV SCH (19:43)
[2021-12-22] MEDS: AUGMENTIN 875 MG TAB PO SCH (21:50)
[2021-12-22 21:51] VITALS: BP 130/83
[2021-12-23] MEDS: HEPARIN SOD (PORCINE) 5000UNITS/ML 1ML VIAL/SYRINGE SC SCH ×3 (05:56→21:25)
[2021-12-23] MEDS: SODIUM CHLORIDE 0.9% INJ 10 ML SYR IV SCH ×2 (05:56→17:41)
[2021-12-23 06:00] VITALS: BP 130/63
[2021-12-23 06:01] LABS: HEMATOCRIT 28.5 % (42.0-52.0); HEMOGLOBIN 9.6 g/dl (13.5-17.5); MEAN CORPUSCULAR HEMOGLOBIN 26.3 pg (27.0-33.0); MEAN CORPUSCULAR HGB CONC 33.7 g/dl (32.0-36.5); MEAN CORPUSCULAR VOLUME 78.1 fl (80.0-96.0); PLATELET COUNT, AUTOMATED 238 10^3/uL (150-450); RED BLOOD COUNT 3.65 10^6/uL (4.30-6.10); WHITE BLOOD COUNT 9.2 10^3/uL (4.0-10.0)
[2021-12-23 06:23] LABS: BLOOD UREA NITROGEN 12 MG/DL (7-18); CARBON DIOXIDE LEVEL 29 MEQ/L (21-32); CHLORIDE LEVEL 107 MEQ/L (98-107); CREATININE FOR GFR 0.82 MG/DL (0.70-1.30); GLOMERULAR FILTRATION RATE > 60.0 (>42); GLUCOSE, FASTING 106 MG/DL (70-100); MAGNESIUM LEVEL 1.9 MG/DL (1.8-2.4); POTASSIUM SERUM 3.3 MEQ/L (3.5-5.1); SODIUM LEVEL 140 MEQ/L (136-145)
[2021-12-23] MEDS ORDERED: POTASSIUM CHLORIDE 10MEQ SR TABLET PO ONE (08:00)
[2021-12-23] MEDS: AUGMENTIN 875 MG TAB PO SCH ×2 (08:26→21:22)
[2021-12-23] MEDS: ASPIRIN 81 MG CHEW TABLET PO SCH (08:27)
[2021-12-23] MEDS: LACTOBACILLUS ACIDOPHILUS CAP (BACID) PO SCH (08:27)
[2021-12-23] MEDS: allopurinoL 300 MG TAB PO SCH (08:27)
[2021-12-23] MEDS: METOPROLOL TART 25 MG TABLET PO SCH ×2 (08:30→21:22)
[2021-12-23 10:00] VITALS: BP 108/60
[2021-12-23 13:54] VITALS: BP 154/75
[2021-12-23] MEDS: VANCOMYCIN HCL 750 MG, VIAL MATE ADAPTER 1 EACH in NS 250 ML IV SCH (15:41)
[2021-12-23] MEDS: VANCOMYCIN HCL 1,000 MG, VIAL MATE ADAPTER 1 EACH in D5W 250 ML IV SCH (17:40)
[2021-12-23 19:54] VITALS: BP 151/76
[2021-12-23] MEDS: ACETAMINOPHEN TAB 650MG DOSE (2X325MG) PO PRN (21:22)
[2021-12-24 00:06] LABS: HEMOGLOBIN A1c 5.5 %
[2021-12-24 02:00] VITALS: BP 124/69
[2021-12-24] MEDS: HEPARIN SOD (PORCINE) 5000UNITS/ML 1ML VIAL/SYRINGE SC SCH (05:31)
[2021-12-24] MEDS: SODIUM CHLORIDE 0.9% INJ 10 ML SYR IV SCH (05:31)
[2021-12-24 07:45] LABS: BASO # 0.1 10^3/uL (0.0-0.2); BASO % 0.6 % (0.0-1.0); EOS # 0.2 10^3/uL (0.0-0.5); EOS % 2.7 % (0.0-3.0); HEMATOCRIT 28.7 % (42.0-52.0); HEMOGLOBIN 9.6 g/dl (13.5-17.5); LYMPH # 1.9 10^3/uL (1.5-5.0); LYMPH % 23.4 % (24.0-44.0); MEAN CORPUSCULAR HEMOGLOBIN 26.3 pg (27.0-33.0); MEAN CORPUSCULAR HGB CONC 33.4 g/dl (32.0-36.5); MEAN CORPUSCULAR VOLUME 78.6 fl (80.0-96.0); MONO # 0.6 10^3/uL (0.0-0.8); MONO % 7.2 % (2.0-8.0); NEUTROPHILS # 5.2 10^3/uL (1.5-8.5); PLATELET COUNT, AUTOMATED 301 10^3/uL (150-450); RED BLOOD COUNT 3.65 10^6/uL (4.30-6.10); WHITE BLOOD COUNT 8.2 10^3/uL (4.0-10.0)
[2021-12-24 08:07] LABS: BLOOD UREA NITROGEN 10 MG/DL (7-18); CALCIUM LEVEL 8.5 MG/DL (8.8-10.2); CARBON DIOXIDE LEVEL 30 MEQ/L (21-32); CHLORIDE LEVEL 109 MEQ/L (98-107); CREATININE FOR GFR 0.72 MG/DL (0.70-1.30); GLOMERULAR FILTRATION RATE > 60.0 (>42); GLUCOSE, FASTING 96 MG/DL (70-100); MAGNESIUM LEVEL 1.8 MG/DL (1.8-2.4); POTASSIUM SERUM 2.9 MEQ/L (3.5-5.1); SODIUM LEVEL 142 MEQ/L (136-145)
[2021-12-24] MEDS ORDERED: POTASSIUM CHLORIDE 10MEQ SR TABLET PO ONE ×3 (08:15→12:00)
[2021-12-24] MEDS: allopurinoL 300 MG TAB PO SCH (08:19)
[2021-12-24] MEDS: LACTOBACILLUS ACIDOPHILUS CAP (BACID) PO SCH (08:19)
[2021-12-24] MEDS: ASPIRIN 81 MG CHEW TABLET PO SCH (08:21)
[2021-12-24] MEDS: AUGMENTIN 875 MG TAB PO SCH (08:21)
[2021-12-24 08:24] VITALS: BP 127/67
[2021-12-24] MEDS: METOPROLOL TART 25 MG TABLET PO SCH (08:24)
[2021-12-24] MEDS ORDERED: MAG SULF 1GM/100ML (MAG RUN) 1 GM in IV 1 EA IV ONE (09:00)
[2021-12-24] MEDS ORDERED: VANC IV (09:41)
[2021-12-24] MEDS ORDERED: AMOX875T2 PO (09:41)
[2021-12-24] MEDS ORDERED: RISATAB3 PO (09:41)
[2021-12-24] MEDS ORDERED: POTA-151 PO (09:43)
[2021-12-24 12:44] LABS: BLOOD UREA NITROGEN 11 MG/DL (7-18); CALCIUM LEVEL 9.1 MG/DL (8.8-10.2); CARBON DIOXIDE LEVEL 26 MEQ/L (21-32); CHLORIDE LEVEL 108 MEQ/L (98-107); CREATININE FOR GFR 1.06 MG/DL (0.70-1.30); GLOMERULAR FILTRATION RATE > 60.0 (>42); GLUCOSE, FASTING 112 MG/DL (70-100); POTASSIUM SERUM 3.7 MEQ/L (3.5-5.1); SODIUM LEVEL 138 MEQ/L (136-145)
== END 2021-12-24 13:00 | DRG 854 ==
LOC: EDBD 15:17 → M ED 16:33 → M ED INP 19:44 → EEVIPCON 19:44 → M MS5PR 21:15
PROVIDERS: ADMIT Family Medicine; ATTEND Internal Medicine
PROC: 0QBN0ZZ Excision of Right Metatarsal, Open Approach (ICD-10-PCS; 2021-12-16)
PROC: 0QBL0ZZ Excision of Right Tarsal, Open Approach (ICD-10-PCS; 2021-12-16)
PROC: 0LDV0ZZ Extraction of Right Foot Tendon, Open Approach (ICD-10-PCS; principal; 2021-12-16 11:16)
PROC: 0Y9M0ZZ Drainage of Right Foot, Open Approach (ICD-10-PCS; 2021-12-19)
PROC: 02HV33Z Insertion of Infusion Device into Superior Vena Cava, Percutaneous Approach (ICD-10-PCS; 2021-12-22)
DX: A41.9 Sepsis, unspecified organism (principal); M86.9 Osteomyelitis, unspecified; N17.9 Acute kidney failure, unspecified; L03.115 Cellulitis of right lower limb; I69.354 Hemiplegia and hemiparesis following cerebral infarction affecting left non-dominant side; I12.9 Hypertensive chronic kidney disease with stage 1 through stage 4 chronic kidney disease, or unspecified chronic kidney disease; E78.5 Hyperlipidemia, unspecified; M10.9 Gout, unspecified; M19.90 Unspecified osteoarthritis, unspecified site; Z85.46 Personal history of malignant neoplasm of prostate; L97.519 Non-pressure chronic ulcer of other part of right foot with unspecified severity; N18.9 Chronic kidney disease, unspecified; M85.88 Other specified disorders of bone density and structure, other site; Z86.718 Personal history of other venous thrombosis and embolism; I73.9 Peripheral vascular disease, unspecified; Z87.891 Personal history of nicotine dependence; Z20.822 Contact with and (suspected) exposure to COVID-19; Z79.82 Long term (current) use of aspirin; Z79.899 Other long term (current) drug therapy; Z88.8 Allergy status to other drugs, medicaments and biological substances; Z91.013 Allergy to seafood; R00.0 Tachycardia, unspecified; R13.10 Dysphagia, unspecified; B96.4 Proteus (mirabilis) (morganii) as the cause of diseases classified elsewhere; B95.5 Unspecified streptococcus as the cause of diseases classified elsewhere

== ENCOUNTER → 2021-12-31 | Outpatient (REF) ==
[2021-12-30 08:36] LABS: HEMATOCRIT 25.4 % (42.0-52.0); HEMOGLOBIN 8.3 g/dl (13.5-17.5); MEAN CORPUSCULAR HEMOGLOBIN 26.7 pg (27.0-33.0); MEAN CORPUSCULAR HGB CONC 32.7 g/dl (32.0-36.5); MEAN CORPUSCULAR VOLUME 81.7 fl (80.0-96.0); PLATELET COUNT, AUTOMATED 247 10^3/uL (150-450); RED BLOOD COUNT 3.11 10^6/uL (4.30-6.10); WHITE BLOOD COUNT 7.6 10^3/uL (4.0-10.0)
[2021-12-30 09:15] LABS: ALBUMIN 1.8 GM/DL (3.2-5.2); ALT/SGPT 28 U/L (12-78); BILIRUBIN,TOTAL 0.5 MG/DL (0.2-1.0); BLOOD UREA NITROGEN 13 MG/DL (7-18); CALCIUM LEVEL 8.4 MG/DL (8.8-10.2); CARBON DIOXIDE LEVEL 27 MEQ/L (21-32); CHLORIDE LEVEL 111 MEQ/L (98-107); CREATININE FOR GFR 1.01 MG/DL (0.70-1.30); GLOMERULAR FILTRATION RATE > 60.0 (>42); GLUCOSE, FASTING 83 MG/DL (70-100); POTASSIUM SERUM 3.9 MEQ/L (3.5-5.1); SODIUM LEVEL 144 MEQ/L (136-145); TOTAL PROTEIN 5.9 GM/DL (6.4-8.2)
[~2021-12-31] MED LIST changes: +AMOX875T2 PO; +ASPI81CH33 PO; +POTA-151 PO; +RISATAB3 PO; +VANC IV
== END ==
LOC: SKLAB5 10:03
PROVIDERS: ATTEND Nurse Practitioner Family
DX: M86.9 Osteomyelitis, unspecified (principal); I10 Essential (primary) hypertension; M10.9 Gout, unspecified; G81.90 Hemiplegia, unspecified affecting unspecified side

== ENCOUNTER → 2022-01-03 | Outpatient (REF) | LOC: SKLAB5 19:48 | PROVIDERS: ATTEND Internal Medicine | DX: M86.8X7 Other osteomyelitis, ankle and foot (principal) ==

== ENCOUNTER → 2022-01-06 | Outpatient (REF) ==
[~2022-01-06] MED LIST changes: +ALB2.5NEB INH; +DULC10SU2 PR; +FLEEENE12 PR; +JUVE1POW PO; +MOM30SS PO; +MUCI600T31 PO; +POTA1TAB14 PO; +PRED10TA2 PO; +VANCOMYCIN IV
[2022-01-06 08:00] LABS: HEMATOCRIT 28.7 % (42.0-52.0); HEMOGLOBIN 9.1 g/dl (13.5-17.5); MEAN CORPUSCULAR HEMOGLOBIN 26.5 pg (27.0-33.0); MEAN CORPUSCULAR HGB CONC 31.7 g/dl (32.0-36.5); MEAN CORPUSCULAR VOLUME 83.4 fl (80.0-96.0); PLATELET COUNT, AUTOMATED 248 10^3/uL (150-450); RED BLOOD COUNT 3.44 10^6/uL (4.30-6.10); WHITE BLOOD COUNT 5.8 10^3/uL (4.0-10.0)
[2022-01-06 08:29] LABS: ALBUMIN 2.1 GM/DL (3.2-5.2); ALT/SGPT 15 U/L (12-78); BILIRUBIN,TOTAL 0.4 MG/DL (0.2-1.0); BLOOD UREA NITROGEN 10 MG/DL (7-18); CALCIUM LEVEL 8.8 MG/DL (8.8-10.2); CARBON DIOXIDE LEVEL 29 MEQ/L (21-32); CHLORIDE LEVEL 109 MEQ/L (98-107); CREATININE FOR GFR 0.79 MG/DL (0.70-1.30); GLOMERULAR FILTRATION RATE > 60.0 (>42); GLUCOSE, FASTING 92 MG/DL (70-100); POTASSIUM SERUM 3.4 MEQ/L (3.5-5.1); SODIUM LEVEL 145 MEQ/L (136-145); TOTAL PROTEIN 6.1 GM/DL (6.4-8.2)
== END ==
LOC: SKLAB5 07:00
PROVIDERS: ATTEND Nurse Practitioner Family
DX: M86.9 Osteomyelitis, unspecified (principal); I10 Essential (primary) hypertension; G81.90 Hemiplegia, unspecified affecting unspecified side; M10.9 Gout, unspecified

== ENCOUNTER → 2022-01-07 | Outpatient (REF) ==
[~2022-01-07] MED LIST changes: -ALB2.5NEB INH; -DULC10SU2 PR; -FLEEENE12 PR; -JUVE1POW PO; -MOM30SS PO; -MUCI600T31 PO; -POTA1TAB14 PO; -PRED10TA2 PO; -VANCOMYCIN IV
== END ==
LOC: SKLAB5 13:09
PROVIDERS: ATTEND Nurse Practitioner Family
DX: R06.2 Wheezing (principal); I70.0 Atherosclerosis of aorta

== ENCOUNTER → 2022-01-08 | Outpatient (REF) | payer MEDICARE, OTHER ==
[~2022-01-08] MED LIST changes: +ALB2.5NEB INH; +DULC10SU2 PR; +FLEEENE12 PR; +JUVE1POW PO; +MOM30SS PO; +MUCI600T31 PO; +POTA1TAB14 PO; +PRED10TA2 PO; +VANCOMYCIN IV
== END ==
LOC: SKLAB5 16:30
PROVIDERS: ATTEND Nurse Practitioner Family
DX: M86.9 Osteomyelitis, unspecified (principal); I10 Essential (primary) hypertension; G81.90 Hemiplegia, unspecified affecting unspecified side; M10.9 Gout, unspecified

== ENCOUNTER 2022-01-10 14:18 | Inpatient (IN) | payer MEDICARE, OTHER ==
[~2022-01-10] VITALS: Ht 180.3 cm; Wt 113.9 kg
[~2022-01-10 14:18] MED LIST changes: -ALB2.5NEB INH; -DULC10SU2 PR; -FLEEENE12 PR; -JUVE1POW PO; -MOM30SS PO; -MUCI600T31 PO; -POTA1TAB14 PO; -PRED10TA2 PO; -VANCOMYCIN IV
[2022-01-10 14:43] LABS: BASO % 0.6 % (0.0-1.0); EOS # 0.3 10^3/uL (0.0-0.5); EOS % 4.8 % (0.0-3.0); HEMATOCRIT 30.8 % (42.0-52.0); HEMOGLOBIN 9.5 g/dl (13.5-17.5); LYMPH # 1.8 10^3/uL (1.5-5.0); LYMPH % 25.8 % (24.0-44.0); MEAN CORPUSCULAR HEMOGLOBIN 25.7 pg (27.0-33.0); MEAN CORPUSCULAR HGB CONC 30.8 g/dl (32.0-36.5); MEAN CORPUSCULAR VOLUME 83.2 fl (80.0-96.0); MONO # 0.5 10^3/uL (0.0-0.8); MONO % 7.5 % (2.0-8.0); NEUTROPHILS # 4.2 10^3/uL (1.5-8.5); NEUTROPHILS % 60.9 % (36.0-66.0); PLATELET COUNT, AUTOMATED 266 10^3/uL (150-450); WHITE BLOOD COUNT 6.9 10^3/uL (4.0-10.0)
[2022-01-10 15:02] LABS: INR 1.17; PROTHROMBIN TIME 15.4 SECONDS (12.7-14.5)
[2022-01-10 15:03] LABS: PARTIAL THROMBOPLASTIN TIME 53.3 SECONDS (25.9-37.0)
[2022-01-10 15:11] LABS: CK-MB VALUE MASS < 1.0 NG/ML (<3.6); CPK CREATINE PHOSPHOKINASE 78 U/L (39-308); MB/CK RELATIVE INDEX 1.28 (< OR =4)
[2022-01-10 15:18] LABS: ALBUMIN 2.2 GM/DL (3.2-5.2); ALT/SGPT 13 U/L (12-78); BILIRUBIN,DIRECT 0.1 MG/DL (0.0-0.2); BILIRUBIN,TOTAL 0.3 MG/DL (0.2-1.0); BLOOD UREA NITROGEN 12 MG/DL (7-18); CALCIUM LEVEL 8.4 MG/DL (8.8-10.2); CARBON DIOXIDE LEVEL 28 MEQ/L (21-32); CHLORIDE LEVEL 108 MEQ/L (98-107); CREATININE FOR GFR 0.89 MG/DL (0.70-1.30); FREE T4 1.33 NG/DL (0.76-1.46); GLOMERULAR FILTRATION RATE > 60.0 (>42); GLUCOSE, FASTING 130 MG/DL (70-100); NT-PRO BNP 1237 PG/ML (<450); POTASSIUM SERUM 3.3 MEQ/L (3.5-5.1); SODIUM LEVEL 143 MEQ/L (136-145); THYROID STIMULATING HORMONE 0.444 uIU/ML (0.358-3.740); TOTAL PROTEIN 6.6 GM/DL (6.4-8.2)
[2022-01-10] MEDS ORDERED: POTASSIUM CHLORIDE 10MEQ SR TABLET PO ONE (16:50)
[2022-01-10] MEDS ORDERED: IPRATROPIUM 0.5MG/ALBUTEROL 2.5MG INH SOL UD 3ML (DUONEB) NEB ONE (16:55)
[2022-01-10] MEDS ORDERED: METOPROLOL TART 25 MG TABLET PO ONE (18:20)
[2022-01-10] MEDS ORDERED: LABETALOL 100MG/20ML VIAL IV STA (18:34)
[2022-01-10] MEDS ORDERED: MOM 30ML SUSPENSION UDC PO PRN (19:10)
[2022-01-10] MEDS ORDERED: MAALOX 30 ML SUSP *UDC PO PRN (19:10)
[2022-01-10] MEDS ORDERED: ACETAMINOPHEN TAB 650MG DOSE (2X325MG) PO PRN (19:10)
[2022-01-10 19:44] LABS: FERRITIN 774 NG/ML (26-388); IRON (FE) 20 UG/DL (65-175); PERCENT SATURATION 13.1 % (19.7-50.0); TOTAL IRON BINDING CAPACITY 153 UG/DL (250-450)
[2022-01-10] MEDS ORDERED: ENOXAPARIN 120MG/0.8ML SYRINGE (J1650 PER 10MG) SC ONE (20:00)
[2022-01-10] MEDS ORDERED: AMOX875T2 PO (20:27)
[2022-01-10] MEDS ORDERED: POTA1TAB14 PO (20:27)
[2022-01-10] MEDS ORDERED: BACITAB PO (20:27)
[2022-01-10] MEDS ORDERED: JUVE1POW PO (20:27)
[2022-01-10] MEDS ORDERED: DULC10SU2 PR (20:35)
[2022-01-10] MEDS ORDERED: FLEEENE12 PR (20:35)
[2022-01-10] MEDS ORDERED: VANCOMYCIN IV (20:35)
[2022-01-10] MEDS ORDERED: MOM30SS PO (20:35)
[2022-01-10] MEDS ORDERED: ALB2.5NEB INH (20:35)
[2022-01-10] MEDS ORDERED: HOME MED LIST COMPLETE! XX SCH (20:35)
[2022-01-10] MEDS ORDERED: BISACODYL 10 MG SUPP PR PRN (20:40)
[2022-01-10] MEDS ORDERED: FLEET ENEMA PR PRN (20:40)
[2022-01-10] MEDS ORDERED: SENNA 8.6 MG TAB (SENOKOT) PO PRN (20:40)
[2022-01-10 21:09] VITALS: BP 147/87
[2022-01-10] MEDS: VANCOMYCIN HCL 1,000 MG, VIAL MATE ADAPTER 1 EACH in NS 250 ML IV SCH ×2 (21:38→23:20)
[2022-01-10] MEDS: IPRATROPIUM 0.5MG/ALBUTEROL 2.5MG INH SOL UD 3ML (DUONEB) NEB SCH (21:38)
[2022-01-10] MEDS: LACTOBACILLUS ACIDOPHILUS CAP (BACID) PO SCH (21:38)
[2022-01-10] MEDS: AUGMENTIN 875 MG TAB PO SCH (22:29)
[2022-01-10] MEDS: METOPROLOL TART 25 MG TABLET PO SCH (22:30)
[2022-01-10 23:46] VITALS: O2SAT 97
[2022-01-11] MEDS: SODIUM CHLORIDE 0.9% INJ 10 ML SYR IV PRN (02:14)
[2022-01-11] MEDS: IPRATROPIUM 0.5MG/ALBUTEROL 2.5MG INH SOL UD 3ML (DUONEB) NEB SCH ×4 (02:15→19:16)
[2022-01-11] MEDS: SODIUM CHLORIDE 0.9% INJ 10 ML SYR IV SCH ×2 (05:04→21:10)
[2022-01-11 06:00] VITALS: BP 148/87
[2022-01-11] MEDS: AUGMENTIN 875 MG TAB PO SCH ×2 (08:50→21:18)
[2022-01-11] MEDS: ASPIRIN 81 MG CHEW TABLET PO SCH (08:52)
[2022-01-11] MEDS: ENOXAPARIN 40MG/0.4ML SYRINGE (J1650 PER 10MG) SC SCH (08:52)
[2022-01-11] MEDS: LACTOBACILLUS ACIDOPHILUS CAP (BACID) PO SCH ×2 (08:52→21:18)
[2022-01-11] MEDS: allopurinoL 300 MG TAB PO SCH (08:52)
[2022-01-11] MEDS: METOPROLOL TART 25 MG TABLET PO SCH ×2 (08:52→21:18)
[2022-01-11] MEDS: COLCHICINE 0.6 MG TABLET PO SCH (08:52)
[2022-01-11 14:00] VITALS: BP 123/75
[2022-01-11 21:15] VITALS: O2SAT 95
[2022-01-11] MEDS: VANCOMYCIN HCL 1,000 MG, VIAL MATE ADAPTER 1 EACH in NS 250 ML IV SCH ×2 (21:17→22:59)
[2022-01-11 22:00] VITALS: BP 154/84
[2022-01-12] MEDS: SODIUM CHLORIDE 0.9% INJ 10 ML SYR IV PRN (00:06)
[2022-01-12] MEDS: IPRATROPIUM 0.5MG/ALBUTEROL 2.5MG INH SOL UD 3ML (DUONEB) NEB SCH ×4 (02:18→19:15)
[2022-01-12] MEDS: SODIUM CHLORIDE 0.9% INJ 10 ML SYR IV SCH ×2 (05:03→14:23)
[2022-01-12] MEDS: ALBUTEROL 90 MCG/ACT 8GM HFA INHALER INH PRN (05:33)
[2022-01-12 06:00] VITALS: BP 142/79
[2022-01-12 06:10] LABS: HEMOGLOBIN 9.1 g/dl (13.5-17.5); MEAN CORPUSCULAR HEMOGLOBIN 25.6 pg (27.0-33.0); MEAN CORPUSCULAR HGB CONC 31.4 g/dl (32.0-36.5); MEAN CORPUSCULAR VOLUME 81.7 fl (80.0-96.0); RED BLOOD COUNT 3.55 10^6/uL (4.30-6.10); WHITE BLOOD COUNT 6.7 10^3/uL (4.0-10.0)
[2022-01-12 06:27] LABS: BLOOD UREA NITROGEN 9 MG/DL (7-18); CALCIUM LEVEL 8.5 MG/DL (8.8-10.2); CARBON DIOXIDE LEVEL 26 MEQ/L (21-32); CHLORIDE LEVEL 109 MEQ/L (98-107); CREATININE FOR GFR 0.85 MG/DL (0.70-1.30); GLOMERULAR FILTRATION RATE > 60.0 (>42); GLUCOSE, FASTING 105 MG/DL (70-100); POTASSIUM SERUM 3.2 MEQ/L (3.5-5.1); SODIUM LEVEL 144 MEQ/L (136-145)
[2022-01-12] MEDS ORDERED: POTASSIUM CHLORIDE 10MEQ SR TABLET PO ONE (07:25)
[2022-01-12 09:51] LABS: VITAMIN B12 LEVEL 473 PG/ML
[2022-01-12] MEDS: LACTOBACILLUS ACIDOPHILUS CAP (BACID) PO SCH ×2 (09:58→20:52)
[2022-01-12] MEDS: ASPIRIN 81 MG CHEW TABLET PO SCH (09:58)
[2022-01-12] MEDS: allopurinoL 300 MG TAB PO SCH (09:58)
[2022-01-12] MEDS: AUGMENTIN 875 MG TAB PO SCH ×2 (09:58→20:52)
[2022-01-12] MEDS: COLCHICINE 0.6 MG TABLET PO SCH (09:58)
[2022-01-12] MEDS: ENOXAPARIN 40MG/0.4ML SYRINGE (J1650 PER 10MG) SC SCH (09:59)
[2022-01-12] MEDS: METOPROLOL TART 25 MG TABLET PO SCH ×2 (09:59→20:53)
[2022-01-12 12:47] VITALS: O2SAT 96
[2022-01-12 14:00] VITALS: BP 136/75
[2022-01-12] MEDS: VANCOMYCIN HCL 1,000 MG, VIAL MATE ADAPTER 1 EACH in NS 250 ML IV SCH ×2 (20:52→22:21)
[2022-01-12 22:00] VITALS: BP 129/75
[2022-01-12 23:19] VITALS: O2SAT 96
[2022-01-13] MEDS: IPRATROPIUM 0.5MG/ALBUTEROL 2.5MG INH SOL UD 3ML (DUONEB) NEB SCH ×4 (00:01→20:04)
[2022-01-13] MEDS: SODIUM CHLORIDE 0.9% INJ 10 ML SYR IV SCH ×2 (05:43→11:40)
[2022-01-13 05:52] VITALS: BP 129/75
[2022-01-13 06:17] LABS: HEMATOCRIT 26.5 % (42.0-52.0); HEMOGLOBIN 8.3 g/dl (13.5-17.5); MEAN CORPUSCULAR HEMOGLOBIN 25.7 pg (27.0-33.0); MEAN CORPUSCULAR HGB CONC 31.3 g/dl (32.0-36.5); PLATELET COUNT, AUTOMATED 266 10^3/uL (150-450); RED BLOOD COUNT 3.23 10^6/uL (4.30-6.10); WHITE BLOOD COUNT 6.3 10^3/uL (4.0-10.0)
[2022-01-13 06:57] LABS: BLOOD UREA NITROGEN 7 MG/DL (7-18); CALCIUM LEVEL 8.2 MG/DL (8.8-10.2); CARBON DIOXIDE LEVEL 30 MEQ/L (21-32); CHLORIDE LEVEL 108 MEQ/L (98-107); CREATININE FOR GFR 0.72 MG/DL (0.70-1.30); GLOMERULAR FILTRATION RATE > 60.0 (>42); GLUCOSE, FASTING 110 MG/DL (70-100); NT-PRO BNP 1104 PG/ML (<450); SODIUM LEVEL 142 MEQ/L (136-145)
[2022-01-13] MEDS ORDERED: POTASSIUM CHLORIDE 10MEQ SR TABLET PO ONE ×2 (07:25→12:00)
[2022-01-13 07:41] LABS: MAGNESIUM LEVEL 1.5 MG/DL (1.8-2.4)
[2022-01-13] MEDS: methylPREDNISolone 40MG 1ML VIAL IV SCH ×2 (08:56→20:04)
[2022-01-13] MEDS: ENOXAPARIN 40MG/0.4ML SYRINGE (J1650 PER 10MG) SC SCH (08:56)
[2022-01-13] MEDS: ASPIRIN 81 MG CHEW TABLET PO SCH (08:56)
[2022-01-13] MEDS: AUGMENTIN 875 MG TAB PO SCH ×2 (08:56→20:04)
[2022-01-13] MEDS: COLCHICINE 0.6 MG TABLET PO SCH (08:56)
[2022-01-13] MEDS: LACTOBACILLUS ACIDOPHILUS CAP (BACID) PO SCH ×2 (08:56→20:04)
[2022-01-13] MEDS: allopurinoL 300 MG TAB PO SCH (08:57)
[2022-01-13] MEDS: METOPROLOL TART 25 MG TABLET PO SCH ×2 (09:01→20:10)
[2022-01-13 10:13] VITALS: O2SAT 98
[2022-01-13 12:08] LABS: HEMATOCRIT 30.3 % (42.0-52.0); HEMOGLOBIN 9.4 g/dl (13.5-17.5)
[2022-01-13 12:29] LABS: ERYTHROCYTE SEDIMENTATION RATE 107 mm/hr (0-20)
[2022-01-13 14:00] VITALS: BP 142/85
[2022-01-13] MEDS: VANCOMYCIN HCL 1,000 MG, VIAL MATE ADAPTER 1 EACH in NS 250 ML IV SCH ×2 (20:04→22:10)
[2022-01-13 21:00] VITALS: BP 144/85
[2022-01-13 21:30] VITALS: BP 144/85
[2022-01-13] MEDS: ALBUTEROL 90 MCG/ACT 8GM HFA INHALER INH PRN (21:43)
[2022-01-13 21:46] VITALS: BP 146/84
[2022-01-13] MEDS ORDERED: guaiFENesin DM LIQ 10ML UD PO PRN (22:00)
[2022-01-13] MEDS ORDERED: guaiFENesin ER 600 MG TAB PO ONE (22:00)
[2022-01-14] MEDS: IPRATROPIUM 0.5MG/ALBUTEROL 2.5MG INH SOL UD 3ML (DUONEB) NEB SCH ×2 (01:42→07:24)
[2022-01-14 05:20] VITALS: BP 149/87
[2022-01-14] MEDS: SODIUM CHLORIDE 0.9% INJ 10 ML SYR IV SCH (05:30)
[2022-01-14 06:05] LABS: HEMATOCRIT 28.7 % (42.0-52.0); HEMOGLOBIN 8.9 g/dl (13.5-17.5); MEAN CORPUSCULAR HEMOGLOBIN 25.1 pg (27.0-33.0); MEAN CORPUSCULAR VOLUME 81.1 fl (80.0-96.0); PLATELET COUNT, AUTOMATED 277 10^3/uL (150-450); RED BLOOD COUNT 3.54 10^6/uL (4.30-6.10); WHITE BLOOD COUNT 12.2 10^3/uL (4.0-10.0)
[2022-01-14 06:28] LABS: BLOOD UREA NITROGEN 11 MG/DL (7-18); CALCIUM LEVEL 8.4 MG/DL (8.8-10.2); CARBON DIOXIDE LEVEL 28 MEQ/L (21-32); CHLORIDE LEVEL 109 MEQ/L (98-107); CREATININE FOR GFR 0.74 MG/DL (0.70-1.30); GLOMERULAR FILTRATION RATE > 60.0 (>42); GLUCOSE, FASTING 154 MG/DL (70-100); POTASSIUM SERUM 3.4 MEQ/L (3.5-5.1); SODIUM LEVEL 142 MEQ/L (136-145)
[2022-01-14] MEDS ORDERED: guaiFENesin ER 600 MG TAB PO SCH (09:00)
[2022-01-14] MEDS: COLCHICINE 0.6 MG TABLET PO SCH (09:01)
[2022-01-14] MEDS: AUGMENTIN 875 MG TAB PO SCH (09:01)
[2022-01-14] MEDS: ASPIRIN 81 MG CHEW TABLET PO SCH (09:01)
[2022-01-14] MEDS: LACTOBACILLUS ACIDOPHILUS CAP (BACID) PO SCH (09:01)
[2022-01-14 09:02] VITALS: BP 125/66
[2022-01-14] MEDS: METOPROLOL TART 25 MG TABLET PO SCH (09:02)
[2022-01-14] MEDS: allopurinoL 300 MG TAB PO SCH (09:02)
[2022-01-14] MEDS: ENOXAPARIN 40MG/0.4ML SYRINGE (J1650 PER 10MG) SC SCH (09:03)
[2022-01-14] MEDS: methylPREDNISolone 40MG 1ML VIAL IV SCH (09:03)
[2022-01-14] MEDS: SODIUM CHLORIDE 0.9% INJ 10 ML SYR IV PRN (09:24)
[2022-01-14] MEDS ORDERED: PRED10TA2 PO (10:43)
[2022-01-14] MEDS ORDERED: MUCI600T31 PO (10:45)
== END 2022-01-14 12:07 | DRG 300 ==
LOC: M ED 14:18 → M ED INP 14:19 → ENRESERV 19:58 → M MSPAV 21:09 → OBSVTOIN 01-12 14:24
PROVIDERS: ADMIT Internal Medicine; ATTEND Internal Medicine
DX: I82.612 Acute embolism and thrombosis of superficial veins of left upper extremity (principal); M86.8X7 Other osteomyelitis, ankle and foot; J44.1 Chronic obstructive pulmonary disease with (acute) exacerbation; I12.9 Hypertensive chronic kidney disease with stage 1 through stage 4 chronic kidney disease, or unspecified chronic kidney disease; E78.5 Hyperlipidemia, unspecified; M10.9 Gout, unspecified; N18.9 Chronic kidney disease, unspecified; D64.9 Anemia, unspecified; I16.0 Hypertensive urgency; R19.7 Diarrhea, unspecified; Z86.010 Personal history of colon polyps; Z87.891 Personal history of nicotine dependence; Z86.718 Personal history of other venous thrombosis and embolism; Z95.5 Presence of coronary angioplasty implant and graft; Z86.73 Personal history of transient ischemic attack (TIA), and cerebral infarction without residual deficits; Z85.46 Personal history of malignant neoplasm of prostate; Z79.82 Long term (current) use of aspirin; Z79.899 Other long term (current) drug therapy; Z88.8 Allergy status to other drugs, medicaments and biological substances; Z91.013 Allergy to seafood

== ENCOUNTER → 2022-01-13 | Outpatient (REF) | payer MEDICARE, OTHER ==
[~2022-01-13] MED LIST changes: +ALB2.5NEB INH; +DULC10SU2 PR; +FLEEENE12 PR; +JUVE1POW PO; +MOM30SS PO; +MUCI600T31 PO; +POTA1TAB14 PO; +PRED10TA2 PO; +VANCOMYCIN IV
== END ==
LOC: SKLAB5 16:30
PROVIDERS: ATTEND Nurse Practitioner Family
DX: M86.9 Osteomyelitis, unspecified (principal); I10 Essential (primary) hypertension; G81.90 Hemiplegia, unspecified affecting unspecified side; M10.9 Gout, unspecified

== ENCOUNTER → 2022-01-16 | Outpatient (REF) ==
[2022-01-16 10:47] LABS: HEMATOCRIT 30.8 % (42.0-52.0); HEMOGLOBIN 9.5 g/dl (13.5-17.5); MEAN CORPUSCULAR HEMOGLOBIN 25.7 pg (27.0-33.0); MEAN CORPUSCULAR HGB CONC 30.8 g/dl (32.0-36.5); MEAN CORPUSCULAR VOLUME 83.5 fl (80.0-96.0); PLATELET COUNT, AUTOMATED 157 10^3/uL (150-450); RED BLOOD COUNT 3.69 10^6/uL (4.30-6.10)
[2022-01-16 11:17] LABS: ERYTHROCYTE SEDIMENTATION RATE 32 mm/hr (0-20)
[2022-01-16 11:31] LABS: ALBUMIN 2.1 GM/DL (3.2-5.2); ALT/SGPT 30 U/L (12-78); BILIRUBIN,TOTAL 0.3 MG/DL (0.2-1.0); BLOOD UREA NITROGEN 18 MG/DL (7-18); C REACTIVE PROTEIN QUANTITATIV 4.11 MG/DL (0.00-0.30); CALCIUM LEVEL 8.2 MG/DL (8.8-10.2); CARBON DIOXIDE LEVEL 30 MEQ/L (21-32); CHLORIDE LEVEL 108 MEQ/L (98-107); CREATININE FOR GFR 0.86 MG/DL (0.70-1.30); GLOMERULAR FILTRATION RATE > 60.0 (>42); GLUCOSE, FASTING 91 MG/DL (70-100); POTASSIUM SERUM 3.3 MEQ/L (3.5-5.1); SODIUM LEVEL 143 MEQ/L (136-145); TOTAL PROTEIN 6.1 GM/DL (6.4-8.2)
== END ==
LOC: SKLAB5 10:37
PROVIDERS: ATTEND Nurse Practitioner Family
DX: I82.612 Acute embolism and thrombosis of superficial veins of left upper extremity (principal); J90 Pleural effusion, not elsewhere classified

== ENCOUNTER → 2022-01-20 | Outpatient (REF) ==
[2022-01-20 08:24] LABS: HEMATOCRIT 32.6 % (42.0-52.0); HEMOGLOBIN 10.2 g/dl (13.5-17.5); MEAN CORPUSCULAR HEMOGLOBIN 25.5 pg (27.0-33.0); MEAN CORPUSCULAR HGB CONC 31.3 g/dl (32.0-36.5); MEAN CORPUSCULAR VOLUME 81.5 fl (80.0-96.0); PLATELET COUNT, AUTOMATED 212 10^3/uL (150-450); WHITE BLOOD COUNT 6.5 10^3/uL (4.0-10.0)
[2022-01-20 08:54] LABS: ALBUMIN 2.3 GM/DL (3.2-5.2); ALT/SGPT 18 U/L (12-78); BILIRUBIN,TOTAL 0.4 MG/DL (0.2-1.0); BLOOD UREA NITROGEN 14 MG/DL (7-18); CALCIUM LEVEL 8.1 MG/DL (8.8-10.2); CARBON DIOXIDE LEVEL 31 MEQ/L (21-32); CHLORIDE LEVEL 107 MEQ/L (98-107); CREATININE FOR GFR 0.68 MG/DL (0.70-1.30); GLOMERULAR FILTRATION RATE > 60.0 (>42); GLUCOSE, FASTING 78 MG/DL (70-100); POTASSIUM SERUM 3.5 MEQ/L (3.5-5.1); SODIUM LEVEL 144 MEQ/L (136-145); TOTAL PROTEIN 5.9 GM/DL (6.4-8.2)
== END ==
LOC: SKLAB5 08:23
PROVIDERS: ATTEND Nurse Practitioner Family
DX: M86.9 Osteomyelitis, unspecified (principal); I10 Essential (primary) hypertension; G81.90 Hemiplegia, unspecified affecting unspecified side; M10.9 Gout, unspecified

== ENCOUNTER → 2022-01-30 | Outpatient (REF) ==
[2022-01-27 18:21] LABS: HEMATOCRIT 36.6 % (42.0-52.0); HEMOGLOBIN 11.2 g/dl (13.5-17.5); MEAN CORPUSCULAR HEMOGLOBIN 25.2 pg (27.0-33.0); MEAN CORPUSCULAR HGB CONC 30.6 g/dl (32.0-36.5); MEAN CORPUSCULAR VOLUME 82.2 fl (80.0-96.0); PLATELET COUNT, AUTOMATED 121 10^3/uL (150-450); RED BLOOD COUNT 4.45 10^6/uL (4.30-6.10); WHITE BLOOD COUNT 7.8 10^3/uL (4.0-10.0)
[2022-01-27 18:51] LABS: ALBUMIN 2.7 GM/DL (3.2-5.2); ALT/SGPT 15 U/L (12-78); BILIRUBIN,TOTAL 0.3 MG/DL (0.2-1.0); BLOOD UREA NITROGEN 10 MG/DL (7-18); CALCIUM LEVEL 9.7 MG/DL (8.8-10.2); CARBON DIOXIDE LEVEL 28 MEQ/L (21-32); CHLORIDE LEVEL 108 MEQ/L (98-107); CREATININE FOR GFR 0.99 MG/DL (0.70-1.30); GLOMERULAR FILTRATION RATE > 60.0 (>42); GLUCOSE, FASTING 116 MG/DL (70-100); POTASSIUM SERUM 4.1 MEQ/L (3.5-5.1); SODIUM LEVEL 139 MEQ/L (136-145); TOTAL PROTEIN 7.2 GM/DL (6.4-8.2)
== END ==
LOC: SKLAB5 12:28
PROVIDERS: ATTEND Nurse Practitioner Family
DX: M86.9 Osteomyelitis, unspecified (principal); I10 Essential (primary) hypertension; G81.90 Hemiplegia, unspecified affecting unspecified side; M10.9 Gout, unspecified

== ENCOUNTER → 2022-02-24 | Outpatient (POV) | payer MEDICARE, OTHER ==
[~2022-02-24] VITALS: Ht 180.3 cm; Wt 109.0 kg
[2022-02-24 08:55] VITALS: BP 121/74
== END ==
LOC: M IRPOV 08:47
PROVIDERS: ATTEND Radiology Diagnostic Radiology
DX: I70.239 Atherosclerosis of native arteries of right leg with ulceration of unspecified site (principal); Z91.013 Allergy to seafood; Z91.048 Other nonmedicinal substance allergy status

== ENCOUNTER → 2022-03-18 | Outpatient (REF) | payer MEDICARE, OTHER | LOC: SKLAB5 07:00 | PROVIDERS: ATTEND Nurse Practitioner Family | DX: Z01.818 Encounter for other preprocedural examination (principal); Z20.822 Contact with and (suspected) exposure to COVID-19 ==

== ENCOUNTER → 2022-03-23 | Outpatient (CLI) | payer MEDICARE, OTHER ==
[~2022-03-23] MED LIST changes: +CEFD300C41 PO; +CVS100LI4 PO; +EUCECRE12 TOP; +FURO20TA2 PO; +ISOVUE-300 61% 50ML VIAL As Ordered ONE; +LACT237L59 PO; +LIDOCAINE 1% MDV 20ML VIAL As Ordered ONE; +MIDAZOLAM INJ 2MG/2ML VIAL (J2250 PER 1MG) As Ordered ONE; +NS 1,000 ML IV SCH; +ONDA-83 PO; +POTA-149 PO; +PROMETHAZINE 25MG/ML 1ML VIAL As Ordered ONE; +diphenhydrAMINE 50MG/ML VIAL (J1200) As Ordered ONE; +fentaNYL 100 MCG/2 ML INJECTION As Ordered ONE
[2022-03-23 16:27] VITALS: BP 151/83
== END ==
LOC: M IRPRO 06:34
PROVIDERS: ATTEND Radiology Diagnostic Radiology
DX: I70.249 Atherosclerosis of native arteries of left leg with ulceration of unspecified site (principal)
CPT/HCPCS: 36247; 75630; 75774; 99152; 99153; C1729; C1769; C1887; C1894; J1200; J1644; J2250; J2550; J3010; Q9967

== ENCOUNTER 2022-03-30 09:38 | Inpatient (IN) | payer MEDICARE, OTHER ==
[~2022-03-30] VITALS: Ht 180.3 cm; Wt 105.2 kg
[~2022-03-30 09:38] MED LIST changes: -CEFD300C41 PO; -CVS100LI4 PO; +DOXY-350 PO; -DOXY-444 PO; -EUCECRE12 TOP; -FURO20TA2 PO; -K-TA1TAB PO; -LACT237L59 PO; -ONDA-83 PO; -POTA-149 PO
[2022-03-30 11:44] LABS: HEMATOCRIT 38.8 % (42.0-52.0); HEMOGLOBIN 12.1 g/dl (13.5-17.5); MEAN CORPUSCULAR HEMOGLOBIN 25.2 pg (27.0-33.0); MEAN CORPUSCULAR HGB CONC 31.2 g/dl (32.0-36.5); MEAN CORPUSCULAR VOLUME 80.7 fl (80.0-96.0); PLATELET COUNT, AUTOMATED 192 10^3/uL (150-450); RED BLOOD COUNT 4.81 10^6/uL (4.30-6.10); WHITE BLOOD COUNT 14.1 10^3/uL (4.0-10.0)
[2022-03-30] MEDS ORDERED: KCL 10MEQ/100ML SWI (KRUN) 10 MEQ in IV 1 EA IV ONE ×4 (11:45→17:20)
[2022-03-30 12:15] LABS: RSV AMPLIFICATION NEGATIVE (NEGATIVE)
[2022-03-30 12:21] LABS: ATYPICAL LYMPH 2 % (0-5); BASOPHILS 1 % (0-1); LYMPHOCYTES 5 % (16-44); METAMYELOCYTES 2 % (0-0); MONOCYTES 5 % (0-5); NEUTROPHILS 68 % (28-66)
[2022-03-30 12:22] LABS: BLOOD UREA NITROGEN 11 MG/DL (7-18); CALCIUM LEVEL 9.1 MG/DL (8.8-10.2); CARBON DIOXIDE LEVEL 37 MEQ/L (21-32); CHLORIDE LEVEL 96 MEQ/L (98-107); CREATININE FOR GFR 0.87 MG/DL (0.70-1.30); GLOMERULAR FILTRATION RATE > 60.0 (>42); GLUCOSE, FASTING 111 MG/DL (70-100); MAGNESIUM LEVEL 1.9 MG/DL (1.8-2.4); POTASSIUM SERUM 2.7 MEQ/L (3.5-5.1); SODIUM LEVEL 138 MEQ/L (136-145)
[2022-03-30 12:23] LABS: ANISOCYTOSIS 1+
[2022-03-30 12:24] LABS: HYPOCHROMASIA 1+; PLATELET ESTIMATE NORMAL (NORMAL)
[2022-03-30] MEDS ORDERED: LIDOCAINE 2% 5ML JELLY UROJET TOP ONE (13:05)
[2022-03-30] MEDS ORDERED: cefTRIAXone SOD 2 GM in D5W MINI-BAG PLUS 50 ML IV ONE (14:20)
[2022-03-30] MEDS ORDERED: FURO20TA2 PO (14:43)
[2022-03-30] MEDS ORDERED: LACT237L59 PO (14:43)
[2022-03-30] MEDS ORDERED: CVS100LI4 PO (14:43)
[2022-03-30] MEDS ORDERED: ERGO500029 PO (14:43)
[2022-03-30] MEDS ORDERED: POTASSIUM CHLORIDE 10% LIQ 20 MEQ/15 ML UDC PO ONE (14:55)
[2022-03-30] MEDS ORDERED: EUCECRE12 TOP (14:59)
[2022-03-30] MEDS ORDERED: HOME MED LIST COMPLETE! XX SCH (15:00)
[2022-03-30] MEDS ORDERED: POTA-149 PO (15:23)
[2022-03-30] MEDS ORDERED: CEFD300C41 PO (15:23)
[2022-03-30] MEDS ORDERED: ONDA-83 PO (15:36)
[2022-03-31] MEDS ORDERED: BISACODYL 10 MG SUPP PR PRN (00:25)
[2022-03-31] MEDS ORDERED: ALBUTEROL SULFATE 2.5 MG/0.5 ML INH NEB SOLN NEB PRN (01:20)
[2022-03-31] MEDS ORDERED: NS 1,000 ML IV SCH (01:35)
[2022-03-31] MEDS ORDERED: NS 500 ML IV ONE (01:35)
[2022-03-31] MEDS ORDERED: IPRATROPIUM 0.5MG/ALBUTEROL 2.5MG INH SOL UD 3ML (DUONEB) NEB ONE ×2 (02:00→06:00)
[2022-03-31] MEDS ORDERED: ACETAMINOPHEN TAB 650MG DOSE (2X325MG) PO PRN (02:00)
[2022-03-31] MEDS ORDERED: POTASSIUM CHLORIDE 10% LIQ 20 MEQ/15 ML UDC PO ONE (02:00)
[2022-03-31] MEDS ORDERED: methylPREDNISolone 40MG 1ML VIAL IV SCH (02:00)
[2022-03-31 03:18] VITALS: BP 168/81
[2022-03-31] MEDS: KCL 10MEQ/100ML SWI (KRUN) 10 MEQ in IV 1 EA IV SCH ×3 (05:44→08:43)
[2022-03-31] MEDS ORDERED: REMDESIVIR 200 MG in NS 250 ML IV ONE (06:00)
[2022-03-31] MEDS ORDERED: methylPREDNISolone 125MG 2ML VIAL IV SCH ×2 (06:00→08:00)
[2022-03-31 06:36] LABS: BASO % 0.2 % (0.0-1.0); EOS % 0.2 % (0.0-3.0); HEMATOCRIT 39.5 % (42.0-52.0); LYMPH # 1.5 10^3/uL (1.5-5.0); LYMPH % 11.4 % (24.0-44.0); MEAN CORPUSCULAR HEMOGLOBIN 24.9 pg (27.0-33.0); MEAN CORPUSCULAR HGB CONC 30.4 g/dl (32.0-36.5); MONO # 0.5 10^3/uL (0.0-0.8); MONO % 3.5 % (2.0-8.0); NEUTROPHILS # 10.7 10^3/uL (1.5-8.5); NEUTROPHILS % 84.2 % (36.0-66.0); PLATELET COUNT, AUTOMATED 159 10^3/uL (150-450); RED BLOOD COUNT 4.82 10^6/uL (4.30-6.10); WHITE BLOOD COUNT 12.7 10^3/uL (4.0-10.0)
[2022-03-31 07:18] LABS: BLOOD UREA NITROGEN 10 MG/DL (7-18); CARBON DIOXIDE LEVEL 33 MEQ/L (21-32); CHLORIDE LEVEL 97 MEQ/L (98-107); CREATININE FOR GFR 0.79 MG/DL (0.70-1.30); GLOMERULAR FILTRATION RATE > 60.0 (>42); GLUCOSE, FASTING 106 MG/DL (70-100); NT-PRO BNP 457 PG/ML (<450); POTASSIUM SERUM 2.7 MEQ/L (3.5-5.1); SODIUM LEVEL 138 MEQ/L (136-145)
[2022-03-31] MEDS: IPRATROPIUM 0.5MG/ALBUTEROL 2.5MG INH SOL UD 3ML (DUONEB) NEB SCH ×3 (07:53→20:12)
[2022-03-31] MEDS ORDERED: SODIUM CHLORIDE 0.9% INJ 10 ML SYR IV ONE (08:00)
[2022-03-31] MEDS ORDERED: KCL 10MEQ/100ML SWI (KRUN) 10 MEQ in IV 1 EA IV SCH (08:00)
[2022-03-31] MEDS ORDERED: POTASSIUM CHLORIDE 10MEQ SR TABLET PO ONE ×3 (08:00→16:35)
[2022-03-31 08:24] VITALS: BP 143/74
[2022-03-31] MEDS: ASPIRIN 81 MG CHEW TABLET PO SCH (08:44)
[2022-03-31] MEDS: allopurinoL 300 MG TAB PO SCH (08:44)
[2022-03-31] MEDS: HEPARIN SOD (PORCINE) 5000UNITS/ML 1ML VIAL/SYRINGE SQ SCH ×2 (08:44→20:31)
[2022-03-31] MEDS: METOPROLOL TART 25 MG TABLET PO SCH ×2 (08:45→20:30)
[2022-03-31] MEDS ORDERED: cefTRIAXone SOD 1GM VIAL (J0696 PER 250MG) IM SCH (09:00)
[2022-03-31 10:06] LABS: BLOOD UREA NITROGEN 11 MG/DL (7-18); CARBON DIOXIDE LEVEL 29 MEQ/L (21-32); CHLORIDE LEVEL 98 MEQ/L (98-107); GLOMERULAR FILTRATION RATE > 60.0 (>42); GLUCOSE, FASTING 162 MG/DL (70-100); POTASSIUM SERUM 2.9 MEQ/L (3.5-5.1); SODIUM LEVEL 138 MEQ/L (136-145)
[2022-03-31] MEDS ORDERED: guaiFENesin 200 MG TAB PO PRN (12:10)
[2022-03-31 12:30] VITALS: BP 135/81
[2022-03-31 14:22] LABS: ABG BASE EXCESS 4.6 (-2.0-2.0); ABG HCO3 29.2 MEQ/L (22.0-26.0); ABG PARTIAL PRESSURE CO2 43.3 mmHg (35.0-45.0); ABG PARTIAL PRESSURE O2 80.4 mmHg (75.0-100.0); ABG STANDARD HCO3 28.6 MEQ/L (22.0-26.0); ABG TOTAL CO2 30.5 MEQ/L (23.0-31.0); ABG pH (ARTERIAL) 7.447 UNITS (7.350-7.450)
[2022-03-31] MEDS ORDERED: cefTRIAXone SOD 1 GM in D5W MINI-BAG PLUS 50 ML IV SCH (15:00)
[2022-03-31 15:05] LABS: BLOOD UREA NITROGEN 11 MG/DL (7-18); CALCIUM LEVEL 9.2 MG/DL (8.8-10.2); CARBON DIOXIDE LEVEL 31 MEQ/L (21-32); CHLORIDE LEVEL 99 MEQ/L (98-107); CREATININE FOR GFR 0.83 MG/DL (0.70-1.30); GLOMERULAR FILTRATION RATE > 60.0 (>42); GLUCOSE, FASTING 192 MG/DL (70-100); POTASSIUM SERUM 3.3 MEQ/L (3.5-5.1); SODIUM LEVEL 139 MEQ/L (136-145)
[2022-03-31 16:00] VITALS: BP 132/99
[2022-03-31] MEDS: methylPREDNISolone 40MG 1ML VIAL IV SCH (17:06)
[2022-03-31 20:00] VITALS: BP 167/79
[2022-04-01] VITALS (8 sets, daily range): BP systolic 119–151; BP diastolic 55–91
[2022-04-01] MEDS: IPRATROPIUM 0.5MG/ALBUTEROL 2.5MG INH SOL UD 3ML (DUONEB) NEB SCH ×4 (02:35→20:00)
[2022-04-01] MEDS: methylPREDNISolone 40MG 1ML VIAL IV SCH (05:32)
[2022-04-01] MEDS ORDERED: REMDESIVIR 100 MG in NS 250 ML IV SCH (06:00)
[2022-04-01] MEDS ORDERED: SODIUM CHLORIDE 0.9% INJ 10 ML SYR IV SCH (07:00)
[2022-04-01 07:27] LABS: BLOOD UREA NITROGEN 13 MG/DL (7-18); CALCIUM LEVEL 8.8 MG/DL (8.8-10.2); CARBON DIOXIDE LEVEL 32 MEQ/L (21-32); CHLORIDE LEVEL 104 MEQ/L (98-107); GLOMERULAR FILTRATION RATE > 60.0 (>42); GLUCOSE, FASTING 163 MG/DL (70-100); POTASSIUM SERUM 3.1 MEQ/L (3.5-5.1); SODIUM LEVEL 142 MEQ/L (136-145)
[2022-04-01] MEDS ORDERED: POTASSIUM CHLORIDE 10MEQ SR TABLET PO ONE ×2 (07:45→10:00)
[2022-04-01] MEDS: allopurinoL 300 MG TAB PO SCH (08:57)
[2022-04-01] MEDS: METOPROLOL TART 25 MG TABLET PO SCH ×2 (08:57→20:18)
[2022-04-01] MEDS: ASPIRIN 81 MG CHEW TABLET PO SCH (08:57)
[2022-04-01] MEDS: HEPARIN SOD (PORCINE) 5000UNITS/ML 1ML VIAL/SYRINGE SQ SCH (08:57)
[2022-04-01] MEDS ORDERED: predniSONE 20 MG TAB PO SCH (09:00)
[2022-04-01] MEDS ORDERED: ALBUTEROL 90 MCG/ACT 8GM HFA INHALER INH PRN (10:30)
[2022-04-01] MEDS ORDERED: diphenhydrAMINE 50MG/ML VIAL (J1200) IV PRN (10:30)
[2022-04-01] MEDS ORDERED: ALBUTEROL SULFATE 2.5 MG/0.5 ML INH NEB SOLN INH PRN (10:30)
[2022-04-01] MEDS ORDERED: NS 1,000 ML IV SCH (10:30)
[2022-04-01] MEDS ORDERED: EPINEPHrine INJ 1 MG/ML 1ML AMP IM PRN (10:30)
[2022-04-01] MEDS ORDERED: methylPREDNISolone 125MG 2ML VIAL IV PRN (10:30)
[2022-04-01] MEDS: CEFDINIR 300 MG CAP (OMNICEF) PO SCH ×2 (12:24→20:17)
[2022-04-01] MEDS ORDERED: BEBTELOVIMAB 175MG 2ML VIAL (EUA) IV ONE (13:00)
[2022-04-01 14:52] LABS: BLOOD UREA NITROGEN 12 MG/DL (7-18); CALCIUM LEVEL 9.6 MG/DL (8.8-10.2); CARBON DIOXIDE LEVEL 31 MEQ/L (21-32); CHLORIDE LEVEL 105 MEQ/L (98-107); CREATININE FOR GFR 0.91 MG/DL (0.70-1.30); GLOMERULAR FILTRATION RATE > 60.0 (>42); GLUCOSE, FASTING 176 MG/DL (70-100); SODIUM LEVEL 143 MEQ/L (136-145)
[2022-04-01] MEDS ORDERED: ENOXAPARIN 40MG/0.4ML SYRINGE (J1650 PER 10MG) SC SCH (21:00)
[2022-04-02 00:01] VITALS: BP 137/87
[2022-04-02] MEDS: IPRATROPIUM 0.5MG/ALBUTEROL 2.5MG INH SOL UD 3ML (DUONEB) NEB SCH ×2 (02:00→07:32)
[2022-04-02 05:58] VITALS: BP 164/72
[2022-04-02 08:45] LABS: BASO % 0.3 % (0.0-1.0); HEMATOCRIT 36.4 % (42.0-52.0); HEMOGLOBIN 11.4 g/dl (13.5-17.5); LYMPH # 1.5 10^3/uL (1.5-5.0); LYMPH % 9.8 % (24.0-44.0); MEAN CORPUSCULAR HEMOGLOBIN 24.6 pg (27.0-33.0); MEAN CORPUSCULAR HGB CONC 31.3 g/dl (32.0-36.5); MEAN CORPUSCULAR VOLUME 78.6 fl (80.0-96.0); MONO # 0.6 10^3/uL (0.0-0.8); MONO % 4.3 % (2.0-8.0); NEUTROPHILS # 12.4 10^3/uL (1.5-8.5); PLATELET COUNT, AUTOMATED 239 10^3/uL (150-450); RED BLOOD COUNT 4.63 10^6/uL (4.30-6.10); WHITE BLOOD COUNT 14.8 10^3/uL (4.0-10.0)
[2022-04-02] MEDS ORDERED: predniSONE 10 MG TAB PO SCH (09:00)
[2022-04-02 09:12] LABS: BLOOD UREA NITROGEN 15 MG/DL (7-18); CALCIUM LEVEL 8.7 MG/DL (8.8-10.2); CARBON DIOXIDE LEVEL 30 MEQ/L (21-32); CHLORIDE LEVEL 106 MEQ/L (98-107); CREATININE FOR GFR 0.83 MG/DL (0.70-1.30); GLOMERULAR FILTRATION RATE > 60.0 (>42); GLUCOSE, FASTING 143 MG/DL (70-100); MAGNESIUM LEVEL 1.8 MG/DL (1.8-2.4); POTASSIUM SERUM 3.2 MEQ/L (3.5-5.1); SODIUM LEVEL 143 MEQ/L (136-145)
[2022-04-02] MEDS ORDERED: POTASSIUM CHLORIDE 10MEQ SR TABLET PO ONE (09:15)
[2022-04-02] MEDS ORDERED: K-TA1TAB PO (09:15)
[2022-04-02] MEDS ORDERED: PRED10TA2 PO (09:16)
[2022-04-02] MEDS: ASPIRIN 81 MG CHEW TABLET PO SCH (10:25)
[2022-04-02] MEDS: CEFDINIR 300 MG CAP (OMNICEF) PO SCH (10:25)
[2022-04-02] MEDS: allopurinoL 300 MG TAB PO SCH (10:27)
[2022-04-02 10:28] VITALS: BP 119/62
[2022-04-02] MEDS: METOPROLOL TART 25 MG TABLET PO SCH (10:28)
== END 2022-04-02 12:30 | DRG 178 ==
LOC: EDBD 09:38 → M ED 09:38 → M ED INP 03-31 01:19 → ENRESERV 03-31 02:10 → M 4MAIN 03-31 03:22
PROVIDERS: ADMIT Internal Medicine; ATTEND Internal Medicine
PROC: XW033E5 Introduction of Remdesivir Anti-infective into Peripheral Vein, Percutaneous Approach, New Technology Group 5 (ICD-10-PCS; principal; 2022-03-31)
DX: U07.1 COVID-19 (principal); N39.0 Urinary tract infection, site not specified; J45.909 Unspecified asthma, uncomplicated; I12.9 Hypertensive chronic kidney disease with stage 1 through stage 4 chronic kidney disease, or unspecified chronic kidney disease; E78.5 Hyperlipidemia, unspecified; Z86.73 Personal history of transient ischemic attack (TIA), and cerebral infarction without residual deficits; M10.9 Gout, unspecified; N18.9 Chronic kidney disease, unspecified; Z85.46 Personal history of malignant neoplasm of prostate; Z90.79 Acquired absence of other genital organ(s); Z86.718 Personal history of other venous thrombosis and embolism; Z87.891 Personal history of nicotine dependence; E87.6 Hypokalemia; D72.829 Elevated white blood cell count, unspecified; Z79.82 Long term (current) use of aspirin; Z79.899 Other long term (current) drug therapy; Z88.3 Allergy status to other anti-infective agents; Z91.013 Allergy to seafood; K59.09 Other constipation

== ENCOUNTER → 2022-03-30 | Outpatient (REF) | payer MEDICARE, OTHER ==
[~2022-03-30] MED LIST changes: -DOXY-350 PO; +DOXY-444 PO; -ISOVUE-300 61% 50ML VIAL As Ordered ONE; +K-TA1TAB PO; -LIDOCAINE 1% MDV 20ML VIAL As Ordered ONE; -MIDAZOLAM INJ 2MG/2ML VIAL (J2250 PER 1MG) As Ordered ONE; -NS 1,000 ML IV SCH; -PROMETHAZINE 25MG/ML 1ML VIAL As Ordered ONE; -diphenhydrAMINE 50MG/ML VIAL (J1200) As Ordered ONE; -fentaNYL 100 MCG/2 ML INJECTION As Ordered ONE
[2022-03-30 07:50] LABS: BASO % 0.2 % (0.0-1.0); EOS % 0.1 % (0.0-3.0); HEMATOCRIT 35.5 % (42.0-52.0); LYMPH # 1.9 10^3/uL (1.5-5.0); LYMPH % 15.5 % (24.0-44.0); MEAN CORPUSCULAR HEMOGLOBIN 24.9 pg (27.0-33.0); MEAN CORPUSCULAR VOLUME 80.5 fl (80.0-96.0); MONO # 0.8 10^3/uL (0.0-0.8); MONO % 6.6 % (2.0-8.0); NEUTROPHILS # 9.3 10^3/uL (1.5-8.5); NEUTROPHILS % 76.9 % (36.0-66.0); PLATELET COUNT, AUTOMATED 157 10^3/uL (150-450); RED BLOOD COUNT 4.41 10^6/uL (4.30-6.10); WHITE BLOOD COUNT 12.1 10^3/uL (4.0-10.0)
[2022-03-30 08:36] LABS: ALBUMIN 2.6 GM/DL (3.2-5.2); ALKALINE PHOSPHATASE 59 U/L (45-117); ALT/SGPT 13 U/L (12-78); AST/SGOT 21 U/L (7-37); BILIRUBIN,TOTAL 0.4 MG/DL (0.2-1.0); BLOOD UREA NITROGEN 11 MG/DL (7-18); CALCIUM LEVEL 8.8 MG/DL (8.8-10.2); CARBON DIOXIDE LEVEL 37 MEQ/L (21-32); CHLORIDE LEVEL 96 MEQ/L (98-107); CREATININE FOR GFR 0.87 MG/DL (0.70-1.30); GLOMERULAR FILTRATION RATE > 60.0 (>42); GLUCOSE, FASTING 107 MG/DL (70-100); POTASSIUM SERUM 2.2 MEQ/L (3.5-5.1); SODIUM LEVEL 138 MEQ/L (136-145); TOTAL PROTEIN 6.5 GM/DL (6.4-8.2)
== END ==
LOC: SKLAB5 05:08
PROVIDERS: ATTEND Internal Medicine
DX: U07.1 COVID-19 (principal); Z79.899 Other long term (current) drug therapy

== ENCOUNTER → 2022-04-03 | Outpatient (REF) | payer MEDICARE, OTHER ==
[~2022-04-03] MED LIST changes: +CEFD300C41 PO; +CVS100LI4 PO; +EUCECRE12 TOP; +FURO20TA2 PO; +K-TA1TAB PO; +LACT237L59 PO; +ONDA-83 PO; +POTA-149 PO
[2022-04-03 09:09] LABS: HEMATOCRIT 38.2 % (42.0-52.0); HEMOGLOBIN 11.8 g/dl (13.5-17.5); MEAN CORPUSCULAR HEMOGLOBIN 24.6 pg (27.0-33.0); MEAN CORPUSCULAR HGB CONC 30.9 g/dl (32.0-36.5); MEAN CORPUSCULAR VOLUME 79.6 fl (80.0-96.0); PLATELET COUNT, AUTOMATED 235 10^3/uL (150-450); WHITE BLOOD COUNT 9.8 10^3/uL (4.0-10.0)
[2022-04-03 09:57] LABS: ALBUMIN 2.6 GM/DL (3.2-5.2); ALT/SGPT 14 U/L (12-78); BILIRUBIN,TOTAL 0.3 MG/DL (0.2-1.0); BLOOD UREA NITROGEN 15 MG/DL (7-18); CALCIUM LEVEL 8.6 MG/DL (8.8-10.2); CARBON DIOXIDE LEVEL 32 MEQ/L (21-32); CHLORIDE LEVEL 108 MEQ/L (98-107); CREATININE FOR GFR 0.76 MG/DL (0.70-1.30); GLOMERULAR FILTRATION RATE > 60.0 (>42); GLUCOSE, FASTING 96 MG/DL (70-100); PHOSPHORUS LEVEL 2.1 MG/DL (2.5-4.9); POTASSIUM SERUM 3.5 MEQ/L (3.5-5.1); SODIUM LEVEL 146 MEQ/L (136-145); TOTAL PROTEIN 6.3 GM/DL (6.4-8.2)
== END ==
LOC: SKLAB5 07:00
PROVIDERS: ATTEND Nurse Practitioner Family
DX: U07.1 COVID-19 (principal); N39.0 Urinary tract infection, site not specified; E87.6 Hypokalemia

== ENCOUNTER → 2022-04-09 | Outpatient (REF) | payer MEDICARE, OTHER ==
[2022-04-09 09:51] LABS: ALBUMIN 2.6 GM/DL (3.2-5.2); ALT/SGPT 15 U/L (12-78); BILIRUBIN,TOTAL 0.7 MG/DL (0.2-1.0); BLOOD UREA NITROGEN 21 MG/DL (7-18); CALCIUM LEVEL 8.8 MG/DL (8.8-10.2); CARBON DIOXIDE LEVEL 21 MEQ/L (21-32); CHLORIDE LEVEL 110 MEQ/L (98-107); CREATININE FOR GFR 0.98 MG/DL (0.70-1.30); GLOMERULAR FILTRATION RATE > 60.0 (>42); GLUCOSE, FASTING 74 MG/DL (70-100); POTASSIUM SERUM 4.1 MEQ/L (3.5-5.1); SODIUM LEVEL 142 MEQ/L (136-145); TOTAL PROTEIN 6.1 GM/DL (6.4-8.2)
[2022-04-09 11:24] LABS: HEMATOCRIT 40.9 % (42.0-52.0); HEMOGLOBIN 12.7 g/dl (13.5-17.5); MEAN CORPUSCULAR HEMOGLOBIN 24.9 pg (27.0-33.0); MEAN CORPUSCULAR HGB CONC 31.1 g/dl (32.0-36.5); MEAN CORPUSCULAR VOLUME 80.2 fl (80.0-96.0); PLATELET COUNT, AUTOMATED 234 10^3/uL (150-450); WHITE BLOOD COUNT 17.1 10^3/uL (4.0-10.0)
== END ==
LOC: SKLAB5 11:18
PROVIDERS: ATTEND Nurse Practitioner Family
DX: U07.1 COVID-19 (principal); Z79.899 Other long term (current) drug therapy

== ENCOUNTER → 2022-07-16 | Outpatient (REF) | payer MEDICARE, OTHER ==
[~2022-07-16] MED LIST changes: -DOXY-350 PO; +DOXY-444 PO
[2022-07-16 16:35] LABS: HEMATOCRIT 41.9 % (42.0-52.0); HEMOGLOBIN 13.2 g/dl (13.5-17.5); MEAN CORPUSCULAR HGB CONC 31.5 g/dl (32.0-36.5); MEAN CORPUSCULAR VOLUME 85.7 fl (80.0-96.0); PLATELET COUNT, AUTOMATED 194 10^3/uL (150-450); RED BLOOD COUNT 4.89 10^6/uL (4.30-6.10); WHITE BLOOD COUNT 6.8 10^3/uL (4.0-10.0)
[2022-07-16 23:07] LABS: THYROID STIMULATING HORMONE 0.956 uIU/ML (0.55-4.78)
[2022-07-16 23:50] LABS: ALBUMIN 3.3 G/DL (3.2-5.2); ALKALINE PHOSPHATASE 91 U/L (46-116); ALT/SGPT 15 U/L (7.0-40); AST/SGOT 17 U/L (<34); BILIRUBIN,TOTAL 0.3 MG/DL (0.3-1.2); BLOOD UREA NITROGEN 21 MG/DL (9-23); CALCIUM LEVEL 9.6 MG/DL (8.3-10.6); CARBON DIOXIDE LEVEL 26 MMOL/L (20-31); CHLORIDE LEVEL 106 MMOL/L (98-107); CHOLESTEROL LEVEL 149 MG/DL (<200); CHOLESTEROL RISK RATIO 3.96 (<5); CREATININE FOR GFR 0.84 MG/DL (0.70-1.30); GLOMERULAR FILTRATION RATE > 60.0 (>42); GLUCOSE, FASTING 124 MG/DL (74-106); HDL CHOLESTEROL 37.6 MG/DL (>40); LDL CHOLESTEROL 73.8 MG/DL (<100); NON-HDL-C 111 MG/DL; POTASSIUM SERUM 4.1 MMOL/L (3.5-5.1); SODIUM LEVEL 141 MMOL/L (136-145); TOTAL PROTEIN 6.7 G/DL (5.7-8.2); TRIGLYCERIDES LEVEL 188 MG/DL (<150)
== END ==
LOC: SKLAB5 15:22
PROVIDERS: ATTEND Internal Medicine
DX: I11.0 Hypertensive heart disease with heart failure (principal); I50.9 Heart failure, unspecified

== ENCOUNTER → 2022-10-30 | Outpatient (REF) | payer MEDICARE, OTHER ==
[~2022-10-30] MED LIST changes: +POTA-298 PO; -POTA1TAB14 PO
[2022-10-30 10:40] LABS: HEMATOCRIT 42.7 % (42.0-52.0); HEMOGLOBIN 13.4 g/dl (13.5-17.5); MEAN CORPUSCULAR HEMOGLOBIN 27.5 pg (27.0-33.0); MEAN CORPUSCULAR HGB CONC 31.4 g/dl (32.0-36.5); MEAN CORPUSCULAR VOLUME 87.5 fl (80.0-96.0); PLATELET COUNT, AUTOMATED 169 10^3/uL (150-450); RED BLOOD COUNT 4.88 10^6/uL (4.30-6.10); WHITE BLOOD COUNT 6.6 10^3/uL (4.0-10.0)
[2022-10-30 11:13] LABS: ALBUMIN 3.1 G/DL (3.2-5.2); ALKALINE PHOSPHATASE 88 U/L (46-116); ALT/SGPT 11 U/L (7.0-40); AST/SGOT 11 U/L (<34); BILIRUBIN,TOTAL 0.5 MG/DL (0.3-1.2); BLOOD UREA NITROGEN 15 MG/DL (9-23); CALCIUM LEVEL 8.9 MG/DL (8.3-10.6); CARBON DIOXIDE LEVEL 29 MMOL/L (20-31); CHLORIDE LEVEL 108 MMOL/L (98-107); CREATININE FOR GFR 0.89 MG/DL (0.70-1.30); GLOMERULAR FILTRATION RATE > 60.0 (>42); GLUCOSE, FASTING 120 MG/DL (74-106); POTASSIUM SERUM 3.7 MMOL/L (3.5-5.1); SODIUM LEVEL 144 MMOL/L (136-145); TOTAL PROTEIN 6.2 G/DL (5.7-8.2)
== END ==
LOC: SKLAB5 11:23
PROVIDERS: ATTEND Internal Medicine
DX: I11.0 Hypertensive heart disease with heart failure (principal); I50.9 Heart failure, unspecified

== ENCOUNTER → 2023-02-01 | Outpatient (REF) | payer MEDICARE, OTHER ==
[2023-01-29 06:51] LABS: HEMATOCRIT 44.2 % (42.0-52.0); HEMOGLOBIN 13.7 g/dl (13.5-17.5); MEAN CORPUSCULAR HEMOGLOBIN 27.5 pg (27.0-33.0); MEAN CORPUSCULAR VOLUME 88.6 fl (80.0-96.0); PLATELET COUNT, AUTOMATED 177 10^3/uL (150-450); RED BLOOD COUNT 4.99 10^6/uL (4.30-6.10); WHITE BLOOD COUNT 6.7 10^3/uL (4.0-10.0)
[2023-01-29 07:19] LABS: ALBUMIN 3.2 G/DL (3.2-5.2); ALKALINE PHOSPHATASE 91 U/L (46-116); ALT/SGPT < 9 U/L (7.0-40); AST/SGOT < 8 U/L (<34); BILIRUBIN,TOTAL 0.5 MG/DL (0.3-1.2); BLOOD UREA NITROGEN 15 MG/DL (9-23); CALCIUM LEVEL 9.2 MG/DL (8.3-10.6); CARBON DIOXIDE LEVEL 31 MMOL/L (20-31); CHLORIDE LEVEL 105 MMOL/L (98-107); CREATININE FOR GFR 0.81 MG/DL (0.70-1.30); GLOMERULAR FILTRATION RATE > 60.0 (>42); GLUCOSE, FASTING 93 MG/DL (74-106); POTASSIUM SERUM 3.6 MMOL/L (3.5-5.1); SODIUM LEVEL 144 MMOL/L (136-145); TOTAL PROTEIN 6.6 G/DL (5.7-8.2)
== END ==
LOC: SKLAB5 15:22
PROVIDERS: ATTEND Internal Medicine
DX: I11.0 Hypertensive heart disease with heart failure (principal); I50.9 Heart failure, unspecified

== ENCOUNTER → 2023-06-24 | Outpatient (CLI) | payer MEDICARE ==
[~2023-06-24] MED LIST changes: +CEFD1CAP9 PO; -CEFD300C41 PO; +ISOVUE-370 76% 100ML VIAL As Ordered ONE; +diphenhydrAMINE 50MG/ML VIAL IV ONE; +predniSONE 50 MG TAB PO ONE
== END ==
LOC: M RAD 09:46
PROVIDERS: ATTEND Nurse Practitioner Family
DX: R22.1 Localized swelling, mass and lump, neck (principal)
CPT/HCPCS: 70492; J1200; J7512; Q9967

== ENCOUNTER → 2023-06-24 | Outpatient (CLI) | payer MEDICARE ==
[~2023-06-24] MED LIST changes: -ISOVUE-370 76% 100ML VIAL As Ordered ONE; -diphenhydrAMINE 50MG/ML VIAL IV ONE; -predniSONE 50 MG TAB PO ONE
== END ==
LOC: M RAD 09:36
PROVIDERS: ATTEND Internal Medicine
DX: L97.919 Non-pressure chronic ulcer of unspecified part of right lower leg with unspecified severity (principal); M79.604 Pain in right leg; I70.201 Unspecified atherosclerosis of native arteries of extremities, right leg
CPT/HCPCS: 70492; 93926; J1200; J7512; Q9967

== ENCOUNTER → 2023-07-06 | Outpatient (CLI) | payer MEDICARE | LOC: M RAD 07:48 | PROVIDERS: ATTEND Nurse Practitioner Family | DX: R22.1 Localized swelling, mass and lump, neck (principal) ==

== ENCOUNTER → 2023-07-08 | Outpatient (REF) | payer MEDICARE | LOC: SKLAB5 13:56 | PROVIDERS: ATTEND Nurse Practitioner Family | DX: R06.2 Wheezing (principal) ==

== ENCOUNTER → 2023-07-30 | Outpatient (REF) | payer MEDICARE, OTHER ==
[2023-07-30 11:29] LABS: HEMATOCRIT 37.3 % (42.0-52.0); MEAN CORPUSCULAR HEMOGLOBIN 27.3 pg (27.0-33.0); MEAN CORPUSCULAR HGB CONC 32.2 g/dl (32.0-36.5); MEAN CORPUSCULAR VOLUME 84.8 fl (80.0-96.0); PLATELET COUNT, AUTOMATED 220 10^3/uL (150-450); WHITE BLOOD COUNT 5.9 10^3/uL (4.0-10.0)
[2023-07-30 11:56] LABS: ALKALINE PHOSPHATASE 69 U/L (46-116); ALT/SGPT 10 U/L (7.0-40); AST/SGOT 8 U/L (<34); BILIRUBIN,TOTAL 0.6 MG/DL (0.3-1.2); BLOOD UREA NITROGEN 15 MG/DL (9-23); CALCIUM LEVEL 9.2 MG/DL (8.3-10.6); CARBON DIOXIDE LEVEL 32 MMOL/L (20-31); CHLORIDE LEVEL 107 MMOL/L (98-107); CREATININE FOR GFR 0.86 MG/DL (0.70-1.30); GLOMERULAR FILTRATION RATE > 60.0 (>42); GLUCOSE, FASTING 125 MG/DL (74-106); POTASSIUM SERUM 3.1 MMOL/L (3.5-5.1); SODIUM LEVEL 142 MMOL/L (136-145)
== END ==
LOC: SKLAB5 11:09
PROVIDERS: ATTEND Nurse Practitioner Family
DX: I11.0 Hypertensive heart disease with heart failure (principal); I50.9 Heart failure, unspecified

== ENCOUNTER → 2023-08-18 | Outpatient (CLI) | payer MEDICARE, OTHER | LOC: M RAD 10:00 | PROVIDERS: ATTEND Otolaryngology | DX: R22.1 Localized swelling, mass and lump, neck (principal) ==

== ENCOUNTER → 2023-08-31 | Outpatient (REF) | payer MEDICARE, OTHER ==
[~2023-08-31] MED LIST changes: +ALBU2.5V10 INH; +ALBU2TAB13 INH; +ALLO200T PO; +BISA10SU4 PR; +DOXY-440 PO; -DOXY-444 PO; +FLUT1BLS8 INH; +META1POW PO; +METO1TAB7 PO; +MIRA3350 PO; +MIRA33506 PO; +POTA10CA70 PO; +SIME180C25 PO
[2023-08-31 10:10] LABS: BLOOD UREA NITROGEN 24 MG/DL (9-23); CALCIUM LEVEL 9.1 MG/DL (8.3-10.6); CARBON DIOXIDE LEVEL 35 MMOL/L (20-31); CHLORIDE LEVEL 101 MMOL/L (98-107); CREATININE FOR GFR 1.08 MG/DL (0.70-1.30); GLOMERULAR FILTRATION RATE > 60.0 (>42); GLUCOSE, FASTING 96 MG/DL (74-106); POTASSIUM SERUM 3.1 MMOL/L (3.5-5.1); SODIUM LEVEL 143 MMOL/L (136-145)
== END ==
LOC: SKLAB5 07:00
PROVIDERS: ATTEND Nurse Practitioner Family
DX: I50.9 Heart failure, unspecified (principal)

== ENCOUNTER → 2023-09-20 | Outpatient (REF) | payer MEDICARE, OTHER ==
[~2023-09-20] MED LIST changes: -ALLO200T PO; -BISA10SU4 PR; -DOXY-440 PO; +DOXY-444 PO; +FLUT1BLS8 IH; -FLUT1BLS8 INH; -META1POW PO; -MIRA3350 PO; -MIRA33506 PO; +POTA10CA60 PO; -POTA10CA70 PO
[2023-09-20 12:48] LABS: BASO # 0.1 10^3/uL (0.0-0.2); BASO % 0.8 % (0.0-1.0); EOS # 0.2 10^3/uL (0.0-0.5); EOS % 3.2 % (0.0-3.0); HEMATOCRIT 41.4 % (42.0-52.0); HEMOGLOBIN 13.5 g/dl (13.5-17.5); LYMPH # 2.1 10^3/uL (1.5-5.0); LYMPH % 27.6 % (24.0-44.0); MEAN CORPUSCULAR HEMOGLOBIN 27.7 pg (27.0-33.0); MEAN CORPUSCULAR HGB CONC 32.6 g/dl (32.0-36.5); MEAN CORPUSCULAR VOLUME 84.8 fl (80.0-96.0); MONO # 0.6 10^3/uL (0.0-0.8); MONO % 8.1 % (2.0-8.0); NEUTROPHILS # 4.5 10^3/uL (1.5-8.5); PLATELET COUNT, AUTOMATED 235 10^3/uL (150-450); RED BLOOD COUNT 4.88 10^6/uL (4.30-6.10); WHITE BLOOD COUNT 7.4 10^3/uL (4.0-10.0)
[2023-09-20 13:08] LABS: INR 1.06; PROTHROMBIN TIME 13.5 SECONDS (12.5-14.5)
[2023-09-20 13:17] LABS: PSA SCREENING 0.04 NG/ML (< 4.00)
[2023-09-20 13:18] LABS: ALBUMIN 3.6 G/DL (3.2-5.2); ALKALINE PHOSPHATASE 73 U/L (46-116); ALT/SGPT < 9 U/L (7.0-40); AST/SGOT 11 U/L (<34); BILIRUBIN,TOTAL 0.6 MG/DL (0.3-1.2); BLOOD UREA NITROGEN 23 MG/DL (9-23); CALCIUM LEVEL 9.9 MG/DL (8.3-10.6); CARBON DIOXIDE LEVEL 33 MMOL/L (20-31); CHLORIDE LEVEL 105 MMOL/L (98-107); CREATININE FOR GFR 1.01 MG/DL (0.70-1.30); GLOMERULAR FILTRATION RATE > 60.0 (>42); GLUCOSE, FASTING 112 MG/DL (74-106); POTASSIUM SERUM 3.7 MMOL/L (3.5-5.1); SODIUM LEVEL 143 MMOL/L (136-145)
[2023-09-20 13:22] LABS: THYROID STIMULATING HORMONE 0.682 uIU/ML (0.55-4.78)
[2023-09-21 07:45] LABS: URIC ACID 5.4 MG/DL (3.7-9.2)
== END ==
LOC: SKLAB5 12:14
PROVIDERS: ATTEND Nurse Practitioner Family
DX: R14.0 Abdominal distension (gaseous) (principal); I50.9 Heart failure, unspecified; Z12.5 Encounter for screening for malignant neoplasm of prostate

== ENCOUNTER → 2023-09-21 | Outpatient (REF) | payer MEDICARE, OTHER | LOC: SKLAB5 08:29 | PROVIDERS: ATTEND Nurse Practitioner Family | DX: R14.0 Abdominal distension (gaseous) (principal) ==

== ENCOUNTER 2023-09-22 11:10 | Inpatient (IN) | payer MEDICARE, OTHER ==
[~2023-09-22] VITALS: Ht 180.3 cm; Wt 105.4 kg
[~2023-09-22 11:10] MED LIST changes: -ALBU2.5V10 INH; -ALBU2TAB13 INH; +DOXY-440 PO; -DOXY-444 PO; -FLUT1BLS8 IH; -GASTROGRAFIN SOLUTION 30ML As Ordered ONE; -ISOVUE-370 76% 100ML VIAL As Ordered ONE; -METO1TAB7 PO; -POTA10CA60 PO; -SIME180C25 PO
[2023-09-22] MEDS: NS 1,000 ML IV SCH ×2 (11:53→16:39)
[2023-09-22 11:58] LABS: BASO # 0.1 10^3/uL (0.0-0.2); BASO % 0.8 % (0.0-1.0); EOS # 0.2 10^3/uL (0.0-0.5); EOS % 2.1 % (0.0-3.0); HEMATOCRIT 47.3 % (42.0-52.0); HEMOGLOBIN 15.3 g/dl (13.5-17.5); LYMPH # 1.5 10^3/uL (1.5-5.0); LYMPH % 20.3 % (24.0-44.0); MEAN CORPUSCULAR HEMOGLOBIN 27.7 pg (27.0-33.0); MEAN CORPUSCULAR HGB CONC 32.3 g/dl (32.0-36.5); MEAN CORPUSCULAR VOLUME 85.7 fl (80.0-96.0); MONO # 0.5 10^3/uL (0.0-0.8); MONO % 6.9 % (2.0-8.0); NEUTROPHILS # 5.1 10^3/uL (1.5-8.5); NEUTROPHILS % 69.6 % (36.0-66.0); PLATELET COUNT, AUTOMATED 223 10^3/uL (150-450); RED BLOOD COUNT 5.52 10^6/uL (4.30-6.10); WHITE BLOOD COUNT 7.3 10^3/uL (4.0-10.0)
[2023-09-22] MEDS: COMBIVENT RESPIMAT 100-20MCG INHALER 4GM INH STA (11:59)
[2023-09-22] MEDS ORDERED: ONDA-83 PO (12:01)
[2023-09-22] MEDS ORDERED: SIME180C25 PO (12:01)
[2023-09-22] MEDS ORDERED: METO1TAB7 PO (12:01)
[2023-09-22] MEDS ORDERED: ALBU2TAB13 INH (12:01)
[2023-09-22] MEDS ORDERED: POTA-151 PO (12:01)
[2023-09-22] MEDS ORDERED: FLUT1BLS8 INH (12:01)
[2023-09-22 12:07] LABS: INR 1.03; PROTHROMBIN TIME 13.2 SECONDS (12.5-14.5)
[2023-09-22] MEDS ORDERED: POTA10CA70 PO (12:07)
[2023-09-22] MEDS ORDERED: ALBU2.5V10 INH (12:07)
[2023-09-22] MEDS ORDERED: HOME MED LIST COMPLETE! XX SCH (12:10)
[2023-09-22 12:16] LABS: LIPASE 37 U/L (12-53)
[2023-09-22 12:24] LABS: ALBUMIN 4.2 G/DL (3.2-5.2); ALKALINE PHOSPHATASE 94 U/L (46-116); ALT/SGPT 15 U/L (7.0-40); AST/SGOT 16 U/L (<34); BILIRUBIN,DIRECT 0.3 MG/DL (<0.4); BILIRUBIN,TOTAL 0.8 MG/DL (0.3-1.2); BLOOD UREA NITROGEN 23 MG/DL (9-23); CALCIUM LEVEL 10.7 MG/DL (8.3-10.6); CARBON DIOXIDE LEVEL 31 MMOL/L (20-31); CHLORIDE LEVEL 100 MMOL/L (98-107); GLOMERULAR FILTRATION RATE > 60.0 (>42); GLUCOSE, FASTING 110 MG/DL (74-106); POTASSIUM SERUM 3.5 MMOL/L (3.5-5.1); SODIUM LEVEL 141 MMOL/L (136-145); TOTAL PROTEIN 8.5 G/DL (5.7-8.2)
[2023-09-22] MEDS: FLEET ENEMA PR ONE (12:50)
[2023-09-22] MEDS ORDERED: MORPHINE 2 MG/ML 1ML VIAL IV PRN (13:45)
[2023-09-22] MEDS ORDERED: ONDANSETRON 4MG 2ML VIAL IV PRN ×2 (13:45→21:50)
[2023-09-22] MEDS ORDERED: LABETALOL 100MG/20ML VIAL IV PRN (13:50)
[2023-09-22 15:15] VITALS: BP 148/77; TEMP 97.2; O2SAT 98
[2023-09-22 16:15] VITALS: BP 148/77; TEMP 97; O2SAT 98
[2023-09-22] MEDS: PANTOPRAZOLE 40MG VIAL IV SCH (16:39)
[2023-09-22 19:59] VITALS: BP 146/78; TEMP 97.1; O2SAT 96
[2023-09-22] MEDS: ALBUTEROL SULFATE 2.5MG/0.5ML INH NEB SOLN NEB SCH (20:00)
[2023-09-22] MEDS: SYMBICORT 160/4.5MCG INHALER 6GM INH SCH (20:00)
[2023-09-22] MEDS ORDERED: MIDAZOLAM INJ 2MG/2ML VIAL As Ordered ONE (20:14)
[2023-09-22] MEDS ORDERED: LIDOCAINE 2% 100MG/5ML SDV (FOR ANES.) As Ordered ONE (20:14)
[2023-09-22] MEDS ORDERED: propofoL 200 MG/20 ML VIAL As Ordered ONE (20:14)
[2023-09-22] MEDS ORDERED: fentaNYL 100 MCG/2 ML INJECTION As Ordered ONE (20:15)
[2023-09-22] MEDS: LR 1,000 ML IV SCH (21:50)
[2023-09-22 22:18] VITALS: BP 131/64; TEMP 97.1; O2SAT 95
[2023-09-22 23:22] VITALS: BP 121/62; TEMP 97.3; O2SAT 97
[2023-09-23 03:34] VITALS: BP 122/60; TEMP 97.2; O2SAT 95
[2023-09-23 06:50] LABS: ALBUMIN 2.9 G/DL (3.2-5.2); ALKALINE PHOSPHATASE 63 U/L (46-116); ALT/SGPT 9 U/L (7.0-40); AST/SGOT 12 U/L (<34); BLOOD UREA NITROGEN 18 MG/DL (9-23); CALCIUM LEVEL 9.1 MG/DL (8.3-10.6); CARBON DIOXIDE LEVEL 29 MMOL/L (20-31); CHLORIDE LEVEL 107 MMOL/L (98-107); CREATININE FOR GFR 0.82 MG/DL (0.70-1.30); GLOMERULAR FILTRATION RATE > 60.0 (>42); GLUCOSE, FASTING 86 MG/DL (74-106); SODIUM LEVEL 143 MMOL/L (136-145); TOTAL PROTEIN 5.7 G/DL (5.7-8.2)
[2023-09-23 07:03] LABS: MEAN CORPUSCULAR HEMOGLOBIN 27.2 pg (27.0-33.0); MEAN CORPUSCULAR HGB CONC 32.4 g/dl (32.0-36.5); MEAN CORPUSCULAR VOLUME 84.1 fl (80.0-96.0); RED BLOOD COUNT 4.52 10^6/uL (4.30-6.10); WHITE BLOOD COUNT 7.3 10^3/uL (4.0-10.0)
[2023-09-23 07:27] VITALS: BP 129/66; TEMP 97.2; O2SAT 96
[2023-09-23] MEDS: KCL 10MEQ/100ML SWI (KRUN) 10 MEQ in IV 1 EA IV SCH (07:45)
[2023-09-23 07:59] LABS: HEMOGLOBIN 12.3 g/dl (13.5-17.5)
[2023-09-23] MEDS: TIOTROPIUM INHALER/CAPSULE (SPIRIVA) INH SCH (08:09)
[2023-09-23] MEDS: MIRALAX *UNIT DOSE* 17GM PACKET PO SCH (09:04)
[2023-09-23 12:06] VITALS: BP 133/61; TEMP 97.4; O2SAT 94
[2023-09-23] MEDS: ASPIRIN 81MG ENTERIC TABLET PO SCH (13:15)
[2023-09-23] MEDS: allopurinoL 300 MG TAB PO SCH (13:15)
[2023-09-23] MEDS: METOPROLOL SUCC (TopROL XL) 50MG **XL** TAB PO SCH (13:16)
[2023-09-23 14:10] LABS: PLATELET COUNT, AUTOMATED 216 10^3/uL (150-450)
[2023-09-23 16:03] VITALS: BP 116/60; TEMP 97.2; O2SAT 98
[2023-09-23 19:35] VITALS: BP 134/63; TEMP 97.2; O2SAT 96
[2023-09-23 23:50] VITALS: BP 123/58; TEMP 98; O2SAT 96
[2023-09-24 03:24] VITALS: BP 140/67; TEMP 97.7; O2SAT 94
[2023-09-24 05:48] LABS: BASO % 0.3 % (0.0-1.0); EOS # 0.3 10^3/uL (0.0-0.5); EOS % 3.7 % (0.0-3.0); HEMATOCRIT 36.2 % (42.0-52.0); HEMOGLOBIN 11.8 g/dl (13.5-17.5); LYMPH # 1.6 10^3/uL (1.5-5.0); LYMPH % 22.6 % (24.0-44.0); MEAN CORPUSCULAR HEMOGLOBIN 26.9 pg (27.0-33.0); MEAN CORPUSCULAR HGB CONC 32.6 g/dl (32.0-36.5); MEAN CORPUSCULAR VOLUME 82.5 fl (80.0-96.0); MONO # 0.5 10^3/uL (0.0-0.8); MONO % 6.8 % (2.0-8.0); NEUTROPHILS # 4.7 10^3/uL (1.5-8.5); PLATELET COUNT, AUTOMATED 194 10^3/uL (150-450); RED BLOOD COUNT 4.39 10^6/uL (4.30-6.10)
[2023-09-24 06:15] LABS: BLOOD UREA NITROGEN 11 MG/DL (9-23); CALCIUM LEVEL 9.1 MG/DL (8.3-10.6); CARBON DIOXIDE LEVEL 28 MMOL/L (20-31); CHLORIDE LEVEL 105 MMOL/L (98-107); GLOMERULAR FILTRATION RATE > 60.0 (>42); GLUCOSE, FASTING 107 MG/DL (74-106); MAGNESIUM LEVEL 1.5 MG/DL (1.8-2.4); POTASSIUM SERUM 2.6 MMOL/L (3.5-5.1); SODIUM LEVEL 142 MMOL/L (136-145)
[2023-09-24] MEDS: MAG SULF 1GM/100ML (MAG RUN) 1 GM in IV 1 EA IV SCH (06:45)
[2023-09-24] MEDS: POTASSIUM CHLORIDE 10MEQ SR TABLET PO ONE ×2 (06:46→19:53)
[2023-09-24] MEDS: ENOXAPARIN 40MG/0.4ML SYRINGE (J1650 PER 10MG) SC SCH (09:14)
[2023-09-24 09:47] VITALS: BP 121/57; TEMP 97.3; O2SAT 93
[2023-09-24] MEDS ORDERED: KCL 10MEQ/100ML SWI (KRUN) 10 MEQ in IV 1 EA IV SCH (10:00)
[2023-09-24] MEDS: KCL 10MEQ/100ML SWI (KRUN) 10 MEQ in IV 1 EA IV SCH (10:29)
[2023-09-24 11:44] VITALS: BP 147/76; O2SAT 96
[2023-09-24] MEDS: METAMUCIL (PSYLLIUM) PACKET PO SCH (12:48)
[2023-09-24 13:30] VITALS: TEMP 97.5
[2023-09-24 15:35] VITALS: BP 134/66; TEMP 97.1; O2SAT 92
[2023-09-24 19:28] VITALS: BP 117/58; TEMP 98.5; O2SAT 93
[2023-09-25 03:55] VITALS: BP 149/70; TEMP 98; O2SAT 90
[2023-09-25 05:08] LABS: BASO % 0.7 % (0.0-1.0); EOS # 0.3 10^3/uL (0.0-0.5); EOS % 4.6 % (0.0-3.0); HEMATOCRIT 36.8 % (42.0-52.0); HEMOGLOBIN 11.8 g/dl (13.5-17.5); LYMPH # 1.6 10^3/uL (1.5-5.0); LYMPH % 27.6 % (24.0-44.0); MEAN CORPUSCULAR HEMOGLOBIN 26.9 pg (27.0-33.0); MEAN CORPUSCULAR HGB CONC 32.1 g/dl (32.0-36.5); MEAN CORPUSCULAR VOLUME 83.8 fl (80.0-96.0); MONO # 0.5 10^3/uL (0.0-0.8); MONO % 8.1 % (2.0-8.0); NEUTROPHILS # 3.4 10^3/uL (1.5-8.5); NEUTROPHILS % 58.7 % (36.0-66.0); PLATELET COUNT, AUTOMATED 189 10^3/uL (150-450); RED BLOOD COUNT 4.39 10^6/uL (4.30-6.10); WHITE BLOOD COUNT 5.8 10^3/uL (4.0-10.0)
[2023-09-25 05:40] LABS: BLOOD UREA NITROGEN 9 MG/DL (9-23); CARBON DIOXIDE LEVEL 28 MMOL/L (20-31); CHLORIDE LEVEL 107 MMOL/L (98-107); CREATININE FOR GFR 0.74 MG/DL (0.70-1.30); GLOMERULAR FILTRATION RATE > 60.0 (>42); GLUCOSE, FASTING 107 MG/DL (74-106); SODIUM LEVEL 142 MMOL/L (136-145)
[2023-09-25 08:02] VITALS: BP 139/84; TEMP 98.3; O2SAT 99
[2023-09-25] MEDS: KCL 10MEQ/100ML SWI (KRUN) 10 MEQ in IV 1 EA IV SCH (08:44)
[2023-09-25] MEDS: POTASSIUM CHLORIDE 10MEQ SR TABLET PO ONE (08:45)
[2023-09-25] MEDS: FUROSEMIDE 20MG/2ML VIAL IV ONE (13:22)
[2023-09-25 15:57] VITALS: BP 137/78; TEMP 97.5; O2SAT 95
[2023-09-25] MEDS: IPRATROPIUM 0.5MG/ALBUTEROL 2.5MG INH SOL UD 3ML (DUONEB) NEB SCH (17:08)
[2023-09-25 18:50] VITALS: BP 145/61; TEMP 98; O2SAT 96
[2023-09-25] MEDS: POTASSIUM CHLORIDE 10MEQ SR TABLET PO SCH (20:09)
[2023-09-25] MEDS ORDERED: POTASSIUM CHLORIDE 10MEQ SR TABLET PO SCH (21:00)
[2023-09-26 03:25] VITALS: BP 129/70; TEMP 98.4; O2SAT 100
[2023-09-26 06:05] LABS: BLOOD UREA NITROGEN 6 MG/DL (9-23); CALCIUM LEVEL 8.9 MG/DL (8.3-10.6); CARBON DIOXIDE LEVEL 24 MMOL/L (20-31); CHLORIDE LEVEL 109 MMOL/L (98-107); CREATININE FOR GFR 0.77 MG/DL (0.70-1.30); GLOMERULAR FILTRATION RATE > 60.0 (>42); GLUCOSE, FASTING 111 MG/DL (74-106); POTASSIUM SERUM 3.7 MMOL/L (3.5-5.1); SODIUM LEVEL 142 MMOL/L (136-145)
[2023-09-26 07:33] VITALS: BP 132/79; TEMP 97.7; O2SAT 97
[2023-09-26 07:47] LABS: BASO # 0.1 10^3/uL (0.0-0.2); BASO % 0.9 % (0.0-1.0); EOS # 0.3 10^3/uL (0.0-0.5); EOS % 3.9 % (0.0-3.0); HEMATOCRIT 41.3 % (42.0-52.0); HEMOGLOBIN 13.1 g/dl (13.5-17.5); LYMPH # 1.7 10^3/uL (1.5-5.0); LYMPH % 24.9 % (24.0-44.0); MEAN CORPUSCULAR HEMOGLOBIN 27.1 pg (27.0-33.0); MEAN CORPUSCULAR HGB CONC 31.7 g/dl (32.0-36.5); MEAN CORPUSCULAR VOLUME 85.3 fl (80.0-96.0); MONO # 0.5 10^3/uL (0.0-0.8); MONO % 7.6 % (2.0-8.0); NEUTROPHILS # 4.4 10^3/uL (1.5-8.5); NEUTROPHILS % 62.4 % (36.0-66.0); PLATELET COUNT, AUTOMATED 201 10^3/uL (150-450); RED BLOOD COUNT 4.84 10^6/uL (4.30-6.10)
[2023-09-26 09:28] VITALS: BP 132/79
[2023-09-26] MEDS ORDERED: MIRA33506 PO (11:28)
[2023-09-26] MEDS ORDERED: DULC10SU2 PR (11:28)
[2023-10-01] MEDS ORDERED: BISA10SU4 PR (08:20)
[2023-10-01] MEDS ORDERED: ALLO200T PO (08:20)
[2023-10-01] MEDS ORDERED: MIRA3350 PO (08:27)
[2023-10-14] MEDS ORDERED: META1POW PO (10:53)
== END 2023-09-26 13:29 | DRG 390 ==
LOC: M ED 11:10 → EDBD 11:10 → M ED INP 13:45 → ENRESERV 14:16 → M PCU 16:17
PROVIDERS: ADMIT Internal Medicine; ATTEND Internal Medicine
PROC: 0DNN8ZZ Release Sigmoid Colon, Via Natural or Artificial Opening Endoscopic (ICD-10-PCS; principal; 2023-09-22 20:00)
DX: K56.2 Volvulus (principal); I12.9 Hypertensive chronic kidney disease with stage 1 through stage 4 chronic kidney disease, or unspecified chronic kidney disease; E78.5 Hyperlipidemia, unspecified; M10.9 Gout, unspecified; I87.2 Venous insufficiency (chronic) (peripheral); J44.9 Chronic obstructive pulmonary disease, unspecified; E87.6 Hypokalemia; N18.9 Chronic kidney disease, unspecified; Z85.46 Personal history of malignant neoplasm of prostate; Z91.013 Allergy to seafood; Z86.718 Personal history of other venous thrombosis and embolism; Z79.82 Long term (current) use of aspirin; Z79.899 Other long term (current) drug therapy; Z88.8 Allergy status to other drugs, medicaments and biological substances; Z86.73 Personal history of transient ischemic attack (TIA), and cerebral infarction without residual deficits

== ENCOUNTER → 2023-09-22 | Outpatient (REF) | payer MEDICARE, OTHER | LOC: SKLAB5 09:17 | PROVIDERS: ATTEND Nurse Practitioner Family | DX: E83.42 Hypomagnesemia (principal); R14.0 Abdominal distension (gaseous); K59.00 Constipation, unspecified; Z53.8 Procedure and treatment not carried out for other reasons ==

== ENCOUNTER → 2023-09-22 | Outpatient (CLI) | payer MEDICARE, OTHER ==
[~2023-09-22] MED LIST changes: +GASTROGRAFIN SOLUTION 30ML As Ordered ONE; +ISOVUE-370 76% 100ML VIAL As Ordered ONE
== END ==
LOC: M RAD 07:11
PROVIDERS: ATTEND Nurse Practitioner Family
DX: J98.11 Atelectasis (principal); N20.0 Calculus of kidney

== ENCOUNTER → 2023-09-30 | Outpatient (REF) | payer MEDICARE, OTHER ==
[~2023-09-30] MED LIST changes: +ALBU2.5V10 INH; +ALBU2TAB13 INH; +ALLO200T PO; +BISA10SU4 PR; -DOXY-440 PO; +DOXY-444 PO; +FLUT1BLS8 INH; +METO1TAB7 PO; +MIRA3350 PO; +MIRA33506 PO; +POTA10CA60 PO; +SIME180C25 PO
== END ==
LOC: SKLAB5 12:57
PROVIDERS: ATTEND Internal Medicine
DX: K56.2 Volvulus (principal); K63.89 Other specified diseases of intestine

== ENCOUNTER → 2023-09-30 | Outpatient (REF) | payer MEDICARE, OTHER | LOC: SKLAB5 15:09 | PROVIDERS: ATTEND Internal Medicine | DX: I50.9 Heart failure, unspecified (principal); Z53.8 Procedure and treatment not carried out for other reasons ==

== ENCOUNTER → 2023-09-30 | Outpatient (REF) | payer MEDICARE, OTHER | LOC: SKLAB5 12:55 | PROVIDERS: ATTEND Internal Medicine | DX: I50.9 Heart failure, unspecified (principal); Z53.8 Procedure and treatment not carried out for other reasons ==

== ENCOUNTER → 2023-10-04 | Outpatient (REF) | payer MEDICARE, OTHER | LOC: SKLAB5 08:36 | PROVIDERS: ATTEND Nurse Practitioner Family | DX: I50.9 Heart failure, unspecified (principal); E87.6 Hypokalemia; Z53.8 Procedure and treatment not carried out for other reasons ==

== ENCOUNTER → 2023-10-28 | Outpatient (REF) | payer MEDICARE, OTHER ==
[~2023-10-28] MED LIST changes: +DOXY-440 PO; -DOXY-444 PO; +META1POW PO; -POTA10CA60 PO; +POTA10CA70 PO
[2023-10-28 11:50] LABS: BASO # 0.1 10^3/uL (0.0-0.2); EOS # 0.2 10^3/uL (0.0-0.5); EOS % 3.6 % (0.0-3.0); HEMATOCRIT 42.6 % (42.0-52.0); HEMOGLOBIN 13.4 g/dl (13.5-17.5); LYMPH % 33.1 % (24.0-44.0); MEAN CORPUSCULAR HEMOGLOBIN 26.9 pg (27.0-33.0); MEAN CORPUSCULAR HGB CONC 31.5 g/dl (32.0-36.5); MEAN CORPUSCULAR VOLUME 85.5 fl (80.0-96.0); MONO # 0.4 10^3/uL (0.0-0.8); MONO % 7.2 % (2.0-8.0); NEUTROPHILS # 3.4 10^3/uL (1.5-8.5); NEUTROPHILS % 54.4 % (36.0-66.0); PLATELET COUNT, AUTOMATED 357 10^3/uL (150-450); RED BLOOD COUNT 4.98 10^6/uL (4.30-6.10); WHITE BLOOD COUNT 6.1 10^3/uL (4.0-10.0)
[2023-10-28 12:16] LABS: BLOOD UREA NITROGEN 15 MG/DL (9-23); CALCIUM LEVEL 9.2 MG/DL (8.3-10.6); CARBON DIOXIDE LEVEL 26 MMOL/L (20-31); CHLORIDE LEVEL 104 MMOL/L (98-107); CREATININE FOR GFR 0.94 MG/DL (0.70-1.30); GLOMERULAR FILTRATION RATE > 60.0 (>42); GLUCOSE, FASTING 100 MG/DL (74-106); POTASSIUM SERUM 5.2 MMOL/L (3.5-5.1); SODIUM LEVEL 138 MMOL/L (136-145)
== END ==
LOC: SKLAB5 10:26
PROVIDERS: ATTEND Internal Medicine
DX: I10 Essential (primary) hypertension (principal)

== ENCOUNTER → 2023-11-04 | Outpatient (REF) | payer MEDICARE, OTHER ==
[2023-11-04 08:03] LABS: BASO # 0.1 10^3/uL (0.0-0.2); EOS # 0.3 10^3/uL (0.0-0.5); EOS % 4.4 % (0.0-3.0); HEMATOCRIT 41.9 % (42.0-52.0); HEMOGLOBIN 13.3 g/dl (13.5-17.5); LYMPH % 33.9 % (24.0-44.0); MEAN CORPUSCULAR HEMOGLOBIN 27.1 pg (27.0-33.0); MEAN CORPUSCULAR HGB CONC 31.7 g/dl (32.0-36.5); MEAN CORPUSCULAR VOLUME 85.5 fl (80.0-96.0); MONO # 0.5 10^3/uL (0.0-0.8); NEUTROPHILS % 51.2 % (36.0-66.0); PLATELET COUNT, AUTOMATED 255 10^3/uL (150-450); WHITE BLOOD COUNT 5.9 10^3/uL (4.0-10.0)
[2023-11-04 08:28] LABS: BLOOD UREA NITROGEN 17 MG/DL (9-23); CALCIUM LEVEL 9.2 MG/DL (8.3-10.6); CARBON DIOXIDE LEVEL 29 MMOL/L (20-31); CHLORIDE LEVEL 105 MMOL/L (98-107); CREATININE FOR GFR 0.79 MG/DL (0.70-1.30); GLOMERULAR FILTRATION RATE > 60.0 (>42); GLUCOSE, FASTING 86 MG/DL (74-106); POTASSIUM SERUM 4.8 MMOL/L (3.5-5.1); SODIUM LEVEL 139 MMOL/L (136-145)
== END ==
LOC: SKLAB5 07:00
PROVIDERS: ATTEND Internal Medicine
DX: I10 Essential (primary) hypertension (principal)

== ENCOUNTER → 2023-11-11 | Outpatient (REF) | payer MEDICARE, OTHER ==
[2023-11-11 08:15] LABS: BASO # 0.1 10^3/uL (0.0-0.2); BASO % 0.9 % (0.0-1.0); EOS # 0.3 10^3/uL (0.0-0.5); EOS % 4.5 % (0.0-3.0); HEMATOCRIT 41.5 % (42.0-52.0); HEMOGLOBIN 13.1 g/dl (13.5-17.5); LYMPH # 2.5 10^3/uL (1.5-5.0); LYMPH % 36.9 % (24.0-44.0); MEAN CORPUSCULAR HEMOGLOBIN 26.9 pg (27.0-33.0); MEAN CORPUSCULAR HGB CONC 31.6 g/dl (32.0-36.5); MEAN CORPUSCULAR VOLUME 85.2 fl (80.0-96.0); MONO # 0.6 10^3/uL (0.0-0.8); MONO % 9.3 % (2.0-8.0); NEUTROPHILS # 3.2 10^3/uL (1.5-8.5); PLATELET COUNT, AUTOMATED 226 10^3/uL (150-450); RED BLOOD COUNT 4.87 10^6/uL (4.30-6.10); WHITE BLOOD COUNT 6.7 10^3/uL (4.0-10.0)
[2023-11-11 08:48] LABS: BLOOD UREA NITROGEN 15 MG/DL (9-23); CALCIUM LEVEL 9.5 MG/DL (8.3-10.6); CARBON DIOXIDE LEVEL 29 MMOL/L (20-31); CHLORIDE LEVEL 104 MMOL/L (98-107); CREATININE FOR GFR 0.76 MG/DL (0.70-1.30); GLOMERULAR FILTRATION RATE > 60.0 (>42); GLUCOSE, FASTING 82 MG/DL (74-106); POTASSIUM SERUM 4.8 MMOL/L (3.5-5.1); SODIUM LEVEL 138 MMOL/L (136-145)
== END ==
LOC: SKLAB5 07:00
PROVIDERS: ATTEND Internal Medicine
DX: I10 Essential (primary) hypertension (principal)

== ENCOUNTER → 2023-12-28 | Outpatient (REF) | payer MEDICARE, OTHER ==
[2023-12-28 16:19] LABS: ALBUMIN 3.4 G/DL (3.2-5.2); ALKALINE PHOSPHATASE 79 U/L (46-116); ALT/SGPT 14 U/L (7.0-40); AST/SGOT 22 U/L (<34); BILIRUBIN,TOTAL 0.3 MG/DL (0.3-1.2); BLOOD UREA NITROGEN 27 MG/DL (9-23); CALCIUM LEVEL 9.2 MG/DL (8.3-10.6); CARBON DIOXIDE LEVEL 23 MMOL/L (20-31); CHLORIDE LEVEL 107 MMOL/L (98-107); CREATININE FOR GFR 0.95 MG/DL (0.70-1.30); GLOMERULAR FILTRATION RATE > 60.0 (>42); GLUCOSE, FASTING 107 MG/DL (74-106); POTASSIUM SERUM 5.6 MMOL/L (3.5-5.1); SODIUM LEVEL 139 MMOL/L (136-145); TOTAL PROTEIN 6.5 G/DL (5.7-8.2)
== END ==
LOC: SKLAB5 10:29
PROVIDERS: ATTEND Internal Medicine
DX: I50.9 Heart failure, unspecified (principal)

== ENCOUNTER → 2024-01-05 | Outpatient (REF) | payer MEDICARE, OTHER ==
[2024-01-05 11:51] LABS: BLOOD UREA NITROGEN 21 MG/DL (9-23); CALCIUM LEVEL 9.1 MG/DL (8.3-10.6); CARBON DIOXIDE LEVEL 29 MMOL/L (20-31); CHLORIDE LEVEL 103 MMOL/L (98-107); CREATININE FOR GFR 0.97 MG/DL (0.70-1.30); GLOMERULAR FILTRATION RATE > 60.0 (>42); GLUCOSE, FASTING 93 MG/DL (74-106); POTASSIUM SERUM 4.5 MMOL/L (3.5-5.1); SODIUM LEVEL 138 MMOL/L (136-145)
== END ==
LOC: SKLAB5 08:30
PROVIDERS: ATTEND Internal Medicine
DX: E87.5 Hyperkalemia (principal)

== ENCOUNTER → 2024-01-18 | Outpatient (REF) | payer MEDICARE, OTHER ==
[2024-01-18 15:28] LABS: HEMATOCRIT 46.5 % (42.0-52.0); MEAN CORPUSCULAR HEMOGLOBIN 26.9 pg (27.0-33.0); MEAN CORPUSCULAR HGB CONC 32.3 g/dl (32.0-36.5); MEAN CORPUSCULAR VOLUME 83.5 fl (80.0-96.0); PLATELET COUNT, AUTOMATED 172 10^3/uL (150-450); RED BLOOD COUNT 5.57 10^6/uL (4.30-6.10); WHITE BLOOD COUNT 6.4 10^3/uL (4.0-10.0)
[2024-01-18 15:57] LABS: BLOOD UREA NITROGEN 23 MG/DL (9-23); CALCIUM LEVEL 9.4 MG/DL (8.3-10.6); CARBON DIOXIDE LEVEL 28 MMOL/L (20-31); CHLORIDE LEVEL 105 MMOL/L (98-107); CREATININE FOR GFR 0.96 MG/DL (0.70-1.30); GLOMERULAR FILTRATION RATE > 60.0 (>42); GLUCOSE, FASTING 103 MG/DL (74-106); POTASSIUM SERUM 4.7 MMOL/L (3.5-5.1); SODIUM LEVEL 138 MMOL/L (136-145)
== END ==
LOC: SKLAB5 14:14
PROVIDERS: ATTEND Internal Medicine
DX: U07.1 COVID-19 (principal); Z79.899 Other long term (current) drug therapy

== ENCOUNTER → 2024-03-17 | Outpatient (REF) | payer MEDICARE, OTHER ==
[~2024-03-17] MED LIST changes: -SIME180C25 PO; +SIME1CAP4 PO
[2024-03-17 09:15] LABS: BASO # 0.1 10^3/uL (0.0-0.2); BASO % 0.8 % (0.0-1.0); EOS # 0.6 10^3/uL (0.0-0.5); EOS % 9.1 % (0.0-3.0); HEMATOCRIT 48.1 % (42.0-52.0); HEMOGLOBIN 15.2 g/dl (13.5-17.5); LYMPH # 2.3 10^3/uL (1.5-5.0); LYMPH % 35.7 % (24.0-44.0); MEAN CORPUSCULAR HEMOGLOBIN 25.8 pg (27.0-33.0); MEAN CORPUSCULAR HGB CONC 31.6 g/dl (32.0-36.5); MEAN CORPUSCULAR VOLUME 81.7 fl (80.0-96.0); MONO # 0.3 10^3/uL (0.0-0.8); MONO % 5.1 % (2.0-8.0); NEUTROPHILS # 3.2 10^3/uL (1.5-8.5); NEUTROPHILS % 48.7 % (36.0-66.0); PLATELET COUNT, AUTOMATED 205 10^3/uL (150-450); RED BLOOD COUNT 5.89 10^6/uL (4.30-6.10); WHITE BLOOD COUNT 6.5 10^3/uL (4.0-10.0)
[2024-03-17 09:53] LABS: ALBUMIN 3.4 G/DL (3.2-5.2); ALKALINE PHOSPHATASE 93 U/L (46-116); ALT/SGPT 12 U/L (7.0-40); AST/SGOT 11 U/L (<34); BILIRUBIN,TOTAL 0.6 MG/DL (0.3-1.2); BLOOD UREA NITROGEN 20 MG/DL (9-23); CALCIUM LEVEL 9.7 MG/DL (8.3-10.6); CARBON DIOXIDE LEVEL 26 MMOL/L (20-31); CHLORIDE LEVEL 108 MMOL/L (98-107); CREATININE FOR GFR 0.98 MG/DL (0.70-1.30); GLOMERULAR FILTRATION RATE > 60.0 (>42); GLUCOSE, FASTING 116 MG/DL (74-106); POTASSIUM SERUM 4.7 MMOL/L (3.5-5.1); SODIUM LEVEL 140 MMOL/L (136-145); TOTAL PROTEIN 7.1 G/DL (5.7-8.2)
[2024-03-17 09:54] LABS: THYROID STIMULATING HORMONE 1.243 uIU/ML (0.55-4.78)
== END ==
LOC: SKLAB5 07:47
PROVIDERS: ATTEND Internal Medicine
DX: I50.9 Heart failure, unspecified (principal); R53.83 Other fatigue; I11.0 Hypertensive heart disease with heart failure

== ENCOUNTER → 2024-06-16 | Outpatient (REF) | payer MEDICARE, OTHER ==
[~2024-06-16] MED LIST changes: -CYCL5TAB PO; +CYCL5TAB4 PO
== END ==
LOC: SKLAB5 07:00
PROVIDERS: ATTEND Internal Medicine
DX: E55.9 Vitamin D deficiency, unspecified (principal)

== ENCOUNTER → 2024-06-27 | Outpatient (REF) | payer MEDICARE, OTHER ==
[2024-06-27 09:27] LABS: BLOOD UREA NITROGEN 22 MG/DL (9-23); CALCIUM LEVEL 9.4 MG/DL (8.3-10.6); CARBON DIOXIDE LEVEL 25 MMOL/L (20-31); CHLORIDE LEVEL 102 MMOL/L (98-107); GLOMERULAR FILTRATION RATE > 60.0 (>42); GLUCOSE, FASTING 121 MG/DL (74-106); POTASSIUM SERUM 4.6 MMOL/L (3.5-5.1); SODIUM LEVEL 136 MMOL/L (136-145)
[2024-06-27 09:35] LABS: MEAN CORPUSCULAR HEMOGLOBIN 26.6 pg (27.0-33.0); MEAN CORPUSCULAR HGB CONC 31.8 g/dl (32.0-36.5); MEAN CORPUSCULAR VOLUME 83.7 fl (80.0-96.0); PLATELET COUNT, AUTOMATED 139 10^3/uL (150-450); RED BLOOD COUNT 5.26 10^6/uL (4.30-6.10); WHITE BLOOD COUNT 8.9 10^3/uL (4.0-10.0)
== END ==
LOC: SKLAB5 07:42
PROVIDERS: ATTEND Internal Medicine
DX: J44.1 Chronic obstructive pulmonary disease with (acute) exacerbation (principal)

== ENCOUNTER → 2024-07-11 | Outpatient (REF) | payer MEDICARE, OTHER ==
[2024-07-11 13:03] LABS: HEMATOCRIT 45.4 % (42.0-52.0); HEMOGLOBIN 14.1 g/dl (13.5-17.5); MEAN CORPUSCULAR HEMOGLOBIN 25.8 pg (27.0-33.0); MEAN CORPUSCULAR HGB CONC 31.1 g/dl (32.0-36.5); MEAN CORPUSCULAR VOLUME 83.2 fl (80.0-96.0); PLATELET COUNT, AUTOMATED 172 10^3/uL (150-450); RED BLOOD COUNT 5.46 10^6/uL (4.30-6.10); WHITE BLOOD COUNT 6.8 10^3/uL (4.0-10.0)
[2024-07-11 14:22] LABS: ALKALINE PHOSPHATASE 72 U/L (40-129); ALT/SGPT 22 U/L (7.0-40); AST/SGOT 15 U/L (<34); BILIRUBIN,TOTAL 0.2 MG/DL (0.3-1.2); BLOOD UREA NITROGEN 20 MG/DL (9-23); CALCIUM LEVEL 9.1 MG/DL (8.3-10.6); CARBON DIOXIDE LEVEL 25 MMOL/L (20-31); CHLORIDE LEVEL 104 MMOL/L (98-107); CREATININE FOR GFR 0.96 MG/DL (0.70-1.30); GLOMERULAR FILTRATION RATE > 60.0 (>42); GLUCOSE, FASTING 98 MG/DL (74-106); POTASSIUM SERUM 4.9 MMOL/L (3.5-5.1); SODIUM LEVEL 141 MMOL/L (136-145); TOTAL PROTEIN 6.7 G/DL (5.7-8.2)
== END ==
LOC: SKLAB5 07:00
PROVIDERS: ATTEND Internal Medicine
DX: I50.9 Heart failure, unspecified (principal); I11.0 Hypertensive heart disease with heart failure

== ENCOUNTER → 2024-07-28 | Outpatient (REF) | payer MEDICARE, OTHER ==
[2024-07-28 10:16] LABS: HEMATOCRIT 46.7 % (42.0-52.0); HEMOGLOBIN 14.6 g/dl (13.5-17.5); MEAN CORPUSCULAR HEMOGLOBIN 26.2 pg (27.0-33.0); MEAN CORPUSCULAR HGB CONC 31.3 g/dl (32.0-36.5); MEAN CORPUSCULAR VOLUME 83.8 fl (80.0-96.0); PLATELET COUNT, AUTOMATED 154 10^3/uL (150-450); RED BLOOD COUNT 5.57 10^6/uL (4.30-6.10); WHITE BLOOD COUNT 4.6 10^3/uL (4.0-10.0)
[2024-07-28 10:45] LABS: ALBUMIN 3.2 G/DL (3.2-5.2); ALKALINE PHOSPHATASE 81 U/L (40-129); ALT/SGPT 13 U/L (7.0-40); AST/SGOT 15 U/L (<34); BILIRUBIN,TOTAL 0.3 MG/DL (0.3-1.2); BLOOD UREA NITROGEN 16 MG/DL (9-23); CALCIUM LEVEL 9.5 MG/DL (8.3-10.6); CARBON DIOXIDE LEVEL 28 MMOL/L (20-31); CHLORIDE LEVEL 101 MMOL/L (98-107); CREATININE FOR GFR 0.94 MG/DL (0.70-1.30); GLOMERULAR FILTRATION RATE > 60.0 (>42); GLUCOSE, FASTING 110 MG/DL (74-106); POTASSIUM SERUM 4.7 MMOL/L (3.5-5.1); SODIUM LEVEL 140 MMOL/L (136-145)
[2024-07-28 10:48] LABS: THYROID STIMULATING HORMONE 1.191 uIU/ML (0.55-4.78)
== END ==
LOC: SKLAB5 07:40
PROVIDERS: ATTEND Internal Medicine
DX: I50.9 Heart failure, unspecified (principal); R53.83 Other fatigue

== ENCOUNTER → 2024-10-12 | Outpatient (REF) | payer MEDICARE, OTHER ==
[~2024-10-12] MED LIST changes: -FLOM0.4C39 PO; +TAMS-18 PO
[2024-10-12 07:37] LABS: HEMATOCRIT 44.2 % (42.0-52.0); HEMOGLOBIN 14.1 g/dl (13.5-17.5); MEAN CORPUSCULAR HEMOGLOBIN 26.1 pg (27.0-33.0); MEAN CORPUSCULAR HGB CONC 31.9 g/dl (32.0-36.5); MEAN CORPUSCULAR VOLUME 81.9 fl (80.0-96.0); PLATELET COUNT, AUTOMATED 184 10^3/uL (150-450); WHITE BLOOD COUNT 5.9 10^3/uL (4.0-10.0)
[2024-10-12 08:05] LABS: ALBUMIN 3.1 G/DL (3.2-5.2); BILIRUBIN,TOTAL 0.4 MG/DL (0.3-1.2); CREATININE FOR GFR 0.83 MG/DL (0.70-1.30); GLOMERULAR FILTRATION RATE 89.6 (>42); POTASSIUM SERUM 4.8 MMOL/L (3.5-5.1); TOTAL PROTEIN 6.8 G/DL (5.7-8.2)
== END ==
LOC: SKLAB5 07:00
PROVIDERS: ATTEND Internal Medicine
DX: Z79.899 Other long term (current) drug therapy (principal)

== ENCOUNTER → 2025-02-08 | Outpatient (REF) | payer MEDICARE, OTHER ==
[~2025-02-08] MED LIST changes: +HYDR12.510 PO; -HYDR12CA PO
[2025-02-08 09:56] LABS: ALT/SGPT 17.0 U/L (7.0-40); AST/SGOT 17.0 U/L (<34); CALCIUM LEVEL 9.3 MG/DL (8.3-10.6); CARBON DIOXIDE LEVEL 28.0 MMOL/L (20-31); CHLORIDE LEVEL 103.0 MMOL/L (98-107); CREATININE FOR GFR 1.03 MG/DL (0.70-1.30); GLOMERULAR FILTRATION RATE 74.4 (>42); POTASSIUM SERUM 4.9 MMOL/L (3.5-5.1); SODIUM LEVEL 142.0 MMOL/L (136-145)
[2025-02-08 10:08] LABS: PLATELET COUNT, AUTOMATED 123 10^3/uL (150-450)
== END ==
LOC: SKLAB5 07:00
PROVIDERS: ATTEND Internal Medicine
DX: I50.9 Heart failure, unspecified (principal)

== ENCOUNTER → 2025-02-27 | Outpatient (REF) | payer MEDICARE, OTHER ==
[~2025-02-27] MED LIST changes: -COLC0.6T47 PO; +COLC0.6T53 PO
[2025-02-27 08:31] LABS: PLATELET COUNT, AUTOMATED 189 10^3/uL (150-450)
[2025-02-27 09:01] LABS: PSA SCREENING 0.04 NG/ML (< 4.00)
[2025-02-27 09:03] LABS: CALCIUM LEVEL 9.3 MG/DL (8.3-10.6); CARBON DIOXIDE LEVEL 30.0 MMOL/L (20-31); CHLORIDE LEVEL 105.0 MMOL/L (98-107); CHOLESTEROL LEVEL 177.0 MG/DL (<200); CHOLESTEROL RISK RATIO 4.11 (<5); CREATININE FOR GFR 1.03 MG/DL (0.70-1.30); GLOMERULAR FILTRATION RATE 74.4 (>42); LDL CHOLESTEROL 101.2 MG/DL (<100); NON-HDL-C 134.0 MG/DL; POTASSIUM SERUM 4.5 MMOL/L (3.5-5.1); SODIUM LEVEL 140.0 MMOL/L (136-145); TRIGLYCERIDES LEVEL 164.0 MG/DL (<150)
[2025-02-27 09:05] LABS: TOTAL 25(OH) VITAMIN D 42.4 NG/ML (20.0-100.0)
[2025-02-27 09:14] LABS: ESTIMATED AVERAGE GLUCOSE 146.0 MG/DL (60-110)
== END ==
LOC: SKLAB5 07:33
PROVIDERS: ATTEND Internal Medicine
DX: N18.9 Chronic kidney disease, unspecified (principal); D63.1 Anemia in chronic kidney disease; Z79.899 Other long term (current) drug therapy; Z12.5 Encounter for screening for malignant neoplasm of prostate
CPT/HCPCS: 36415; 80048; 80061; 82306; 83036; 84443; 85027; G0103

== ENCOUNTER → 2025-05-25 | Outpatient (REF) | payer MEDICARE, OTHER ==
[~2025-05-25] MED LIST changes: -CVS100LI4 PO; +GUAI-147 PO
[2025-05-25 14:55] LABS: ESTIMATED AVERAGE GLUCOSE 148.0 MG/DL (60-110)
[2025-05-25 14:59] LABS: CALCIUM LEVEL 8.7 MG/DL (8.3-10.6); CARBON DIOXIDE LEVEL 28.0 MMOL/L (20-31); CHLORIDE LEVEL 102.0 MMOL/L (98-107); CREATININE FOR GFR 0.9 MG/DL (0.70-1.30); GLOMERULAR FILTRATION RATE 87.4 (>42); POTASSIUM SERUM 4.5 MMOL/L (3.5-5.1); SODIUM LEVEL 140.0 MMOL/L (136-145)
[2025-05-25 16:37] LABS: CREATININE, URINE 139.8 MG/DL; MALB URINE SIEMENS 8.0 MG/L; MAU/CREAT RATIO 5.7 MCG/MG (0.0-30.0)
== END ==
LOC: SKLAB5 13:41
PROVIDERS: ATTEND Internal Medicine
DX: I50.9 Heart failure, unspecified (principal); Z79.899 Other long term (current) drug therapy